=== PATIENT | male | born 1990 ===

== ENCOUNTER 2024-03-29 22:03 | Inpatient (IN) | payer MEDICAID, SELFPAY ==
--- OUTSIDE RECORDS SUMMARY | 2024-03-29 22:09 | XMS_ITS ---
Author Name CRISP Organization Unknown Results Test Name/Text Value Interpretation Date Range Source AMPHETAMINES Negative Normal [id number] - [facility] MARIJUANA Negative Normal [id number] - [facility] COCAINE Negative Normal [id number] - [facility] BARBITURATES Negative Normal 302387018045 - [facility] PCP Negative Normal 141642907430 - [facility] OPIATES Negative Normal 946077589943 - [facility] BENZODIAZEPINES Negative Normal [id number] - C [facility] SODIUM 137mmol/L Normal [id number] 136 - 145 [facility] GLUCOSE 92mg/dL Normal [id number] 74 - 106 [facility] BUN 10mg/dL Normal [id number] 9 - 23 [facility] CHLORIDE 105mmol/L Normal [id number] 98 - 107 [facility] POTASSIUM SERUM 4.3mmol/L Normal [id number] 3.5 - 5.1 [facility] CO2 28mmol/L Normal [id number] 20 - 31 [facility] CREATININE 1.02mg/dL Normal [id number] 0.7 - 1.3 [facility] MAGNESIUM 1.9mg/dL Normal [id number] 1.6 - 2.6 [facility] TROPONIN I HIGH SENSITIVE < 2.50 Below low normal [id number] 2.5 - 45 [facility] WBC 8.2K/uL Normal [id number] 3.7 - 10.3 [facility] ABSOLUTE GRANULOCYTES 3.8K/uL Normal [id number] 2.2 - 7.3 [facility] ABSOLUTE BASO 0.1K/uL Normal [id number] 0 - 0.2 [facility] RBC 5.5M/uL Normal [id number] 4.3 - 6 [facility] IMMATURE GRANULOCYTES 0% Normal [id number] 0 - 0.45 [facility] EOSINOPHILS 2% Normal [id number] 0 - 6 [facility] MPV 12fL Normal [id number] 8 - 12 [facility] ABSOLUTE MONOS 0.9K/uL Normal [id number] 0.2 - 1.5 CT [facility] BASOPHILS 1% Normal [id number] 0 - 2 [facility] NUCLEATED RBC 0% Normal [id number] 0 - 0.2 CTP R MCV 74fL Below low normal [id number] 83 - 102 [facility] MCH 24PG Below low normal [id number] 27 - 34 [facility] HCT 40.9% Normal [id number] 40 - 52 [facility] ABSOLUTE LYMPHS 3.2K/uL Normal [id number] 1.5 - 4.9 [facility] GRANULOCYTES 47% Normal [id number] 23 - 78 [facility] MONOCYTES 11% Normal [id number] 0 - 12 [facility] ABSOLUTE EOS 0.2K/uL Normal [id number] 0 - 0.7 [facility] LYMPHS 39% Normal [id number] 16 - 50 [facility] ABSOLUTE IMMATURE GRANULOCYTES 0K/uL Normal [id number] 0 - 0.3 [facility] HGB 13.3g/dL Below low normal [id number] 13.5 - 18 [facility] RDW 16.1% Above high normal [id number] 11.1 - 13.3 [facility] PLATELET COUNT 265K/uL Normal [id number] 150 - [address] [facility] MCHC 32.5g/dL Normal [id number] 31 - 36 [facility] ABSOLUTE NUCLEATED RBC 0K/uL Normal [id number] 0 - 0.012 [facility] PATIENT FASTING? UNKNOWN Normal [id number] [facility] CANNABINOID Negative Normal [id number] - [facility] OPIATES, URINE Negative Normal [id number] - [facility] COCAINE METABOLITES URINE Negative Normal [id number] - [facility] BENZODIAZEPINE, URINE Negative Normal [id number] - [facility] Hgb A1c MFr Bld HPLC 6.2% Above high normal [id number] 5 - 5.7 [facility] LDLc SerPl Calc-mCnc 120mg/dL Normal [id number] 50 - 1 30 [facility] TRIGL SERPL-MCNC 77mg/dL Normal [id number] - 150 [facility] CHOLEST SERPL-MCNC 177mg/dL Normal [id number] 0 - 200 [facility] HDLC SERPL-MCNC 42mg/dL Normal [id number] 32 - 70 [facility] Service [facility] XXX-Imp Dias ID NOW Normal [id number] [facility] SYMPTOMATIC DEF.BY CDC NO Normal [id number] [facility] Amphet Ur Ql Scn NEGATIVE Normal [id number] - [facility] Barbiturates Ur Ql Scn NEGATIVE Normal [id number] - [facility] Cannabinoids Ur Ql Scn NEGATIVE Normal [id number] - [facility] BZE Ur Ql Scn NEGATIVE Normal [id number] - CTT HS CREAT SERPL MCNC 1.1mg/dL Normal [id number] 0.7 - 1.3 [facility] CALCIUM SERPL MCNC 9.8mg/dL Normal [id number] 8.4 - 10.2 [facility] SODIUM SERPL SCNC 138mmol/L Normal [id number] 135 - 145 [facility] ANION GAP SERPL SCNC 9mmol/L Normal [id number] 5 - 14 [facility] Glomerular filtration rate/1.73 sq M. predicted 92 Normal [id number] 60 - [facility] HCO3 SER SCNC 26mmol/L Normal [id number] 24 - 32 [facility] GLUCOSE SERPL MCNC 91mg/dL Normal [id number] 70 - 199 [facility] BUN SERPL MCNC 9mg/dL Normal [id number] 9 - 20 CT [facility] CHLORIDE SERPL SCNC 103mmol/L Normal [id number] 98 - 10 7 [facility] POTASSIUM SERPL SCNC 4.1mmol/L Normal [id number] 3.5 - 5.1 [facility] Troponin I SerPl HS-mCnc 3ng/L Normal [id number] 0 - 20 [facility] PLATELET NO. BLD AUTO 277K/uL Normal [id number] 150 - 450 [facility] RBC NO. BLD AUTO 5.7M/uL Normal [id number] 4.7 - 6 [facility] NUCLEATED RBC 0% Normal [id number] 0 - 1 [facility] LYMPHOCYTES NO. BLD AUTO 2.4K/uL Normal [id number] 1 - 3.2 [facility] EOSINOPHIL NO. BLD AUTO 0.1K/uL Normal [id number] 0 - 0.5 [facility] MCH RBC QN AUTO 24.6pg Below low normal [id number] 25 - 33 [facility] MCHC RBC AUTO MCNC 33.5g/dL Normal [id number] 32 - 36 [facility] MONOCYTES NFR BLD AUTO 6.8% Normal [id number] 2 - 12 [facility] IMMATURE GRANULOCYTE, ABSOLUTE 0.04k/uL Normal [id number] - 0.1 [facility] LYMPHOCYTES NFR BLD AUTO 35.1% Normal [id number] 20 - 48 [facility] EOSINOPHIL NFR BLD AUTO 1.5% Normal [id number] 0 - 6 [facility] HGB BLD MCNC 14g/dL Normal [id number] 13.5 - 18 [facility] NEUTROPHIL[facility] NO. BLD AUTO 3.8K/uL Normal [id number] 1.8 - 7.8 [facility] WBC NO. BLD AUTO 6.8K/uL Normal [id number] 4 - 10.5 [facility] BASOPHILS NFR BLD AUTO 0.7% Normal [id number] 0 - 2 [facility] MONOCYTES NO. BLD AUTO 0.5K/uL Normal [id number] 0 - 0.8 [facility] MCV RBC AUTO 73.3fL Below low normal [id number] 78 - 10 0 [facility] NEUTROPHILS NFR BLD AUTO 55.3% Normal [id number] 44 - 74 [facility] IMMATURE GRANULOCYTE, PERCENT 0.6% Normal [id number] 0 - 1 [facility] BASOPHILS IN BLOOD BY AUTOMATED COUNT 0.1K/uL Normal [id number] 0 - 0.2 [facility] PMV BLD AUTO 10.7fL Normal [id number] 7.4 - 11.4 [facility] RDW RBC AUTO RTO 16.1% Normal [id number] 12.1 - 17.7 [facility] HCT VFR BLD AUTO 41.8% Normal [id number] 40 - 54 [facility] PT TIME PPP 11.6sec Normal [id number] 10.5 - 13.3 [facility] INR PPP 1 Normal [id number] 0.8 - 1.1 [facility] TROPONIN I 0.01ng/mL Normal [id number] - [facility] CREATININE 1mg/dL Normal 0.6 - 1.2 [facility] POTASSIUM 4.4mmol/L Normal [id number] 3.6 - 5.1 [facility] BICARBONATE 21mmol/L Below low normal [id number] 23 - 32 [facility] GLOMERULAR FILTRATION RATE ML/MIN/1.73 SQ M.PREDICTED 103mL/min/1.73m *2 Normal 60 - [facility] SODIUM 135mmol/L Below low normal [id number] 137 - 144 [facility] CHLORIDE 106mmol/L Normal [id number] 100 - 111 [facility] CALCIUM, TOTAL 10mg/dL Normal 8.4 - 10.2 [facility] UREA NITROGEN 9mg/dL Normal [id number] 8 - 24 [facility] ANION GAP 8mmol/L Normal [id number] 3 - 11 [facility] GLUCOSE 83mg/dL Normal [id number] 70 - 200 [facility] RBC DISTRIBUTION WIDTH 16.3% Above high normal [id number] 11.6 - 14.8 [facility] AUTO NRBC % 0% Normal [id number] 0 - 0 [facility] [address]. 3.810*3/uL Normal [id number] 1.4 - 6.[address] [facility] [address] 0.510*3/uL Normal [id number] 0.2 - 0.8 [facility] MCHC 32.2g/dL Normal [id number] 32 - 36 [facility] MCH 24pg Below low normal [id number] 26 - 34 [facility] IMMATURE GRANULOCYTE % 0.3% Normal [id number] 0 - 0.6 [facility] EOSINOPHIL % 1.2% Normal [id number] 0 - 6 [facility] [address] 0.110*3/uL Normal [id number] 0 - 0 .2 [facility] MCV 74.5fL Below low normal [id number] 80 - 100 [facility] PLATELET COUNT 48175*3/uL Normal [id number] 150 - 440 C [facility] BASOPHILS % 0.8% Normal [id number] 0 - 2 [facility] [address]. 2.110*3/uL Normal [id number] 0.7 - 4.[address] 0.110*3/uL Normal [id number] 0 - 0.3 [facility] HEMATOCRIT 45.1% Normal 40 - 52 [facility] WHITE CELL COUNT 6.510*3/uL Normal [id number] 3.8 - 10.6 [facility] RED CELL COUNT 6.0510*6/???L Above high normal [id number] 4.4 - 5.9 [facility] MONOCYTE % 7.3% Normal [id number] 4 - 12 [facility] NEUTROPHIL % 58.2% Normal [id number] 40 - 70 [facility] HEMOGLOBIN 14.5g/dL Normal 13 - 18 [facility] LYMPHOCYTE % 32.2% Normal [id number] 20 - 50 [facility] AMPHETAMINES NEG Normal [id number] - [facility] Normal [id number] - [facility] COCAINE NEG Normal [id number] - [facility] BARBITURATES NEG Normal [id number] - [facility] PCP NEG Normal [id number] - [facility] H OPIATES NEG Normal [id number] - [facility] H BENZODIAZEPINES NEG Normal 018339512519 - C [facility] AMPHETAMINES NEG Normal [id number] - [facility] MARIJUANA NEG Normal [id number] - [facility] H COCAINE NEG Normal [id number] - [facility] H BARBITURATES NEG Normal [id number] - [facility] Normal [id number] - [facility] H OPIATES NEG Normal [id number] - [facility] H BENZODIAZEPINES NEG Normal [id number] - C [facility] GLUCOSE 123mg/dL Normal [id number] [facility] AMPHETAMINES NEG Normal [id number] - [facility] MARIJUANA NEG Normal [id number] - [facility] COCAINE NEG Normal [id number] - [facility] BARBITURATES NEG Normal [id number] - [facility] PCP NEG Normal [id number] - [facility] OPIATES NEG Normal [id number] - [facility] BENZODIAZEPINES NEG Normal [id number] - C [facility] RPR NONREACTIVE Normal [id number] - [facility]H GLYCOHEMOGLOBIN (A1C) 6% Above high normal [id number] 4 - 5.6 [facility] GGT 53U/L Normal [id number] 15 - 85 [facility] TSH 2.49uIU/mL Normal [id number] 0.35 - 4.5 [facility] TRIGLYCERIDE 122mg/dL Normal [id number] - 150 [facility] LDL 127 Normal [id number] 0 - 129 [facility] CHOLESTEROL 191mg/dL Normal [id number] - 200 [facility] MMH HDL 40mg/dL Normal [id number] - [facility] H SODIUM 138mmol/L Normal [id number] 136 - 145 [facility] GLUCOSE 90mg/dL Normal [id number] 74 - 100 [facility] BUN 8mg/dL Normal [id number] 7 - 18 [facility] CALCIUM 9.3mg/dL Normal [id number] 8.5 - 10.1 [facility] CHLORIDE 104mmol/L Normal [id number] 98 - 107 [facility] POTASSIUM SERUM 4.3mmol/L Normal [id number] 3.5 - 5.1 C [facility] CO2 30mmol/L Normal [id number] 21 - 32 [facility] H CREATININE 0.94mg/dL Normal [id number] 0.55 - 1.3 [facility] AST (SGOT) 71U/L Above high normal [id number] 15 - 37 [facility] ALT (SGPT) 65U/L Normal [id number] 12 - 78 [facility] MH GFRE 99 Normal [id number] 60 - [facility] H WBC 6.1K/uL Normal [id number] 3.7 - 10.3 [facility] ABSOLUTE GRANULOCYTES 2.9K/uL Normal [id number] 2.2 - 7.3 [facility] ABSOLUTE BASO 0.1K/uL Normal [id number] 0 - 0.2 [facility] RBC 5.71M/uL Normal [id number] 4.3 - 6 [facility] H IMMATURE GRANULOCYTES 0% Normal [id number] 0 - 0.45 [facility] EOSINOPHILS 3% Normal [id number] 0 - 6 [facility] MMH MPV 11fL Normal [id number] 8 - 12 [facility] H ABSOLUTE MONOS 0.7K/uL Normal [id number] 0.2 - 1.5 CT [facility] BASOPHILS 1% Normal [id number] 0 - 2 [facility] H NUCLEATED RBC 0% Normal [id number] 0 - 0.2 [facility] MCV 76fL Below low normal 801043157601 83 - 102 [facility] MCH 25PG Below low normal [id number] 27 - 34 [facility] HCT 43.3% Normal [id number] 40 - 52 [facility] ABSOLUTE LYMPHS 2.4K/uL Normal [id number] 1.5 - 4.9 C [facility] GRANULOCYTES 47% Normal [id number] 23 - 78 [facility] MONOCYTES 11% Normal [id number] 0 - 12 [facility] H ABSOLUTE EOS 0.2K/uL Normal [id number] 0 - 0.7 [facility] LYMPHS 38% Normal [id number] 16 - 50 [facility] H ABSOLUTE IMMATURE GRANULOCYTES 0K/uL Normal [id number] 0 - 0.3 [facility] HGB 14g/dL Normal [id number] 13.5 - 18 [facility] H RDW 16% Above high normal [id number] 11.1 - 13.3 [facility] PLATELET COUNT 240K/uL Normal [id number] 150 - 480 [facility] MCHC 32.3g/dL Normal [id number] 31 - 36 [facility] H ABSOLUTE NUCLEATED RBC 0K/uL Normal [id number] 0 - 0.012 [facility] PATIENT FASTING? YES Normal [id number] [facility] INFLUENZA B BY PCR INFLUENZA B NEGATIVE. Normal [id number] [facility] INFLUENZA A BY PCR INFLUENZA A NEGATIVE. Normal 802656429390 [facility] AMPHETAMINES NEG Normal [id number] - [facility] MARIJUANA NEG Normal [id number] - [facility] H COCAINE NEG Normal [id number] - [facility] H BARBITURATES NEG Normal [id number] - [facility] PCP NEG Normal [id number] - [facility] H OPIATES NEG Normal 608295993604 - [facility] H BENZODIAZEPINES NEG Normal 937902032813 - C [facility] TROPONIN I HIGH SENSITIVE < 3.00 Normal 0 - 78 [facility] AMPHETAMINES NEG Normal [id number] - [facility] MARIJUANA NEG Normal [id number] - [facility] H COCAINE NEG Normal 872907278815 - [facility] H BARBITURATES NEG Normal [id number] - [facility] PCP NEG Normal [id number] - [facility] H OPIATES NEG Normal [id number] - [facility] H BENZODIAZEPINES NEG Normal 013313380145 - C [facility] MAGNESIUM 2.3mg/dL Normal 1.8 - 2.4 [facility] CALCIUM 9.7mg/dL Normal 8.5 - 10.1 [facility] ALBUMIN 3.7g/dL Normal 3.4 - 5 [facility] SODIUM 140mmol/L Normal 136 - 145 [facility] H GLUCOSE 97mg/dL Normal 74 - 100 [facility] BUN 10mg/dL Normal 7 - 18 [facility] BILIRUBIN,TOTAL 0.3mg/dL Normal 0.2 - 1 C [facility] CHLORIDE 109mmol/L Above high normal 98 - 107 [facility] POTASSIUM SERUM 4mmol/L Normal 3.5 - 5.1 [facility] CO2 30mmol/L Normal 21 - 32 [facility] ALKALINE PHOSPHATASE 74U/L Normal 50 - 1 36 [facility] AST (SGOT) 29U/L Normal 15 - 37 [facility] GLOBULIN 3.5g/dL Normal 2.4 - 4.2 [facility] H A/G RATIO 1.1g/dL Normal CT[facility]G H ALT (SGPT) 55U/L Normal 12 - 78 [facility] GH BUN/CREAT.RATIO 10.5 Normal C [facility] CREATININE 0.95mg/dL Normal 0.55 - 1.3 [facility] PROTEIN, TOTAL 7.2g/dL Normal 6.4 - 8.2 CT [facility] GFRE 98 Normal 60 - [facility] H TROPONIN I HIGH SENSITIVE 4.15ng/L Normal 0 - 78 [facility] WBC 6.3K/uL Normal 3.7 - 10.3 [facility] ABSOLUTE GRANULOCYTES 2.9K/uL Normal 2.2 - 7.3 [facility] ABSOLUTE BASO 0.1K/uL Normal 0 - 0.2 [facility] RBC 5.55M/uL Normal 4.3 - 6 [facility] H IMMATURE GRANULOCYTES 0% Normal 0 - 0.45 [facility] EOSINOPHILS 4% Normal 0 - 6 [facility]GH MPV 11fL Normal 8 - 12 [facility] H ABSOLUTE MONOS 0.5K/uL Normal 0.2 - 1.5 CT [facility] BASOPHILS 1% Normal 0 - 2 [facility] H NUCLEATED RBC 0% Normal 0 - 0.2 [facility] MCV 75fL Below low normal 83 - 102 [facility] MCH 24PG Below low normal 27 - 34 [facility] HCT 41.7% Normal 40 - 52 [facility] H ABSOLUTE LYMPHS 2.5K/uL Normal 1.5 - 4.9 C [facility] GRANULOCYTES 47% Normal 23 - 78 [facility] MONOCYTES 8% Normal 0 - 12 [facility] H ABSOLUTE EOS 0.2K/uL Normal 0 - 0.7 [facility] LYMPHS 40% Normal 16 - 50 [facility] H ABSOLUTE IMMATURE GRANULOCYTES 0K/uL Normal 0 - 0.3 [facility] HGB 13.3g/dL Below low normal 13.5 - 18 [facility] RDW 16% Above high normal 11.1 - 13.3 [facility] PLATELET COUNT 268K/uL Normal 150 - [address] CT [facility] MCHC 31.9g/dL Normal [id number] 31 - 36 [facility] H ABSOLUTE NUCLEATED RBC 0K/uL Normal [id number] 0 - 0.012 [facility] PATIENT FASTING? UNKNOWN Normal [id number] [facility] AMPHETAMINES NEG Normal [id number] - [facility] MARIJUANA NEG Normal [id number] - [facility] H COCAINE NEG Normal [id number] - [facility] H BARBITURATES NEG Normal [id number] - [facility] PCP NEG Normal [id number] - [facility] H OPIATES NEG Normal [id number] - [facility] H BENZODIAZEPINES NEG Normal 962308622795 - C [facility] AMPHETAMINES NEG Normal 905161252778 - [facility] MARIJUANA NEG Normal [id number] - [facility] H COCAINE NEG Normal [id number] - [facility] H BARBITURATES NEG Normal [id number] - [facility] Normal [id number] - [facility] H OPIATES NEG Normal [id number] - [facility] H BENZODIAZEPINES NEG Normal 372480281613 - [facility] AMPHETAMINES NEG Normal 871122276525 - [facility] MARIJUANA NEG Normal [id number] - [facility] H COCAINE NEG Normal 813806347186 - [facility] H BARBITURATES NEG Normal [id number] - [facility] PCP NEG Normal [id number] - [facility] H OPIATES NEG Normal [id number] - [facility] H BENZODIAZEPINES NEG Normal 374066945526 - C [facility] AMPHETAMINES NEG Normal 047598301286 - [facility] MARIJUANA NEG Normal 248284283351 - [facility] H COCAINE NEG Normal 585313272305 - [facility] H BARBITURATES NEG Normal 397481467714 - [facility] PCP NEG Normal [id number] - [facility] H OPIATES NEG Normal [id number] - [facility] H BENZODIAZEPINES NEG Normal 268193476583 - C [facility] RPR NONREACTIVE Normal 706408756135 - [facility] GLYCOHEMOGLOBIN (A1C) 5.9% Above high normal [id number] 4 - 5.6 [facility] ALT (SGPT) 46U/L Normal [id number] 12 - 78 [facility] MH TRIGLYCERIDE 67mg/dL Normal 981672948405 - 150 [facility] LDL 108 Normal 406440907811 0 - 129 [facility] H CHOLESTEROL 159mg/dL Normal 447498060551 - 200 [facility] MMH HDL 38mg/dL Below low normal 064351159844 - [facility] GFRE 94 Normal [id number] 60 - [facility] H AST (SGOT) 26U/L Normal [id number] 15 - 37 [facility] MH TSH 1.99uIU/mL Normal [id number] 0.35 - 4.5 [facility] SODIUM 140mmol/L Normal [id number] 136 - 145 [facility] H GLUCOSE 85mg/dL Normal [id number] 74 - 100 [facility] H BUN 11mg/dL Normal [id number] 7 - 18 [facility] H CALCIUM 9mg/dL Normal 660312431101 8.5 - 10.1 [facility] CHLORIDE 110mmol/L Above high normal 018641625760 98 - 107 [facility] POTASSIUM SERUM 4.4mmol/L Normal [id number] 3.5 - 5.1 C [facility] CO2 26mmol/L Normal [id number] 21 - 32 [facility] H CREATININE 0.99mg/dL Normal [id number] 0.55 - 1.3 [facility] GGT 53U/L Normal [id number] 15 - 85 [facility] H WBC 7.2K/uL Normal [id number] 3.7 - 10.3 [facility] ABSOLUTE GRANULOCYTES 3.5K/uL Normal [id number] 2.2 - 7.3 [facility] ABSOLUTE BASO 0.1K/uL Normal [id number] 0 - 0.2 [facility] RBC 5.83M/uL Normal [id number] 4.3 - 6 [facility] H IMMATURE GRANULOCYTES 0% Normal 873111952231 0 - 0.45 [facility] EOSINOPHILS 2% Normal [id number] 0 - 6 [facility] MMH MPV 11fL Normal 969836203288 8 - 12 [facility] H ABSOLUTE MONOS 0.5K/uL Normal [id number] 0.2 - 1.5 CT [facility] BASOPHILS 1% Normal [id number] 0 - 2 [facility] H NUCLEATED RBC 0% Normal [id number] 0 - 0.2 [facility]P [facility] MCV 78fL Below low normal 083113486844 83 - 102 [facility] MCH 24PG Below low normal 446337670204 27 - 34 [facility] HCT 45.2% Normal [id number] 40 - 52 [facility] H ABSOLUTE LYMPHS 3K/uL Normal [id number] 1.5 - 4.9 C [facility] GRANULOCYTES 49% Normal 689958948577 23 - 78 [facility] MONOCYTES 7% Normal [id number] 0 - 12 [facility] H ABSOLUTE EOS 0.2K/uL Normal [id number] 0 - 0.7 [facility] LYMPHS 42% Normal [id number] 16 - 50 [facility] H ABSOLUTE IMMATURE GRANULOCYTES 0K/uL Normal [id number] 0 - 0.3 [facility] HGB 14.1g/dL Normal 769064441129 13.5 - 18 [facility] H RDW 16% Above high normal [id number] 11.1 - 13.3 [facility] PLATELET COUNT 285K/uL Normal [id number] 150 - [address] CT [facility] MCHC 31.2g/dL Normal 538396186178 31 - 36 [facility] H ABSOLUTE NUCLEATED RBC 0K/uL Normal 549529789458 0 - 0.012 [facility] PATIENT FASTING? YES Normal [id number] [facility] TSH 3.01uIU/mL Normal 698068037815 0.35 - 4.5 [facility] BILIRUBIN,TOTAL 0.2mg/dL Normal 575364043188 0.2 - 1 C [facility] ALKALINE PHOSPHATASE 83U/L Normal [id number] 50 - 1 36 [facility] AST (SGOT) 34U/L Normal [id number] 15 - 37 [facility] GH GLOBULIN 4.2g/dL Normal [id number] 2.4 - 4.2 [facility] H A/G RATIO 0.8g/dL Normal [id number] [facility] H ALT (SGPT) 59U/L Normal [id number] 12 - 78 [facility] GH PROTEIN, TOTAL 7.7g/dL Normal 445498572700 6.4 - 8.2 CT [facility] LIPASE 85U/L Above high normal [id number] 13 - 75 [facility] WBC 7.6K/uL Normal 693221942403 3.7 - 10.3 [facility] ABSOLUTE GRANULOCYTES 4K/uL Normal [id number] 2.2 - 7.3 [facility] ABSOLUTE BASO 0.1K/uL Normal 977248607741 0 - 0.2 [facility] RBC 5.28M/uL Normal 378324358052 4.3 - 6 [facility] H IMMATURE GRANULOCYTES 0% Normal [id number] 0 - 0.45 [facility]PR EOSINOPHILS 2% Normal [id number] 0 - 6 [facility] MPV 11fL Normal 331458300322 8 - 12 [facility] H ABSOLUTE MONOS 0.6K/uL Normal 608283578123 0.2 - 1.5 CT [facility] BASOPHILS 1% Normal [id number] 0 - 2 [facility] H NUCLEATED RBC 0% Normal [id number] 0 - 0.2 [facility] MCV 76fL Below low normal [id number] 83 - 102 [facility] MCH 25PG Below low normal [id number] 27 - 34 [facility] HCT 40% Normal [id number] 40 - 52 [facility] ABSOLUTE LYMPHS 2.7K/uL Normal [id number] 1.5 - 4.9 C [facility] GRANULOCYTES 53% Normal [id number] 23 - 78 [facility] MONOCYTES 7% Normal [id number] 0 - 12 [facility] ABSOLUTE EOS 0.2K/uL Normal [id number] 0 - 0.7 [facility] LYMPHS 36% Normal [id number] 16 - 50 [facility] ABSOLUTE IMMATURE GRANULOCYTES 0K/uL Normal [id number] 0 - 0.3 [facility]PR HGB 13.1g/dL Below low normal [id number] 13.5 - 18 CTPM[facility] RDW 15.9% Above high normal [id number] 11.1 - 13.3 [facility] PLATELET COUNT 260K/uL Normal [id number] 150 - [address] [facility] MCHC 32.8g/dL Normal [id number] 31 - 36 [facility] H ABSOLUTE NUCLEATED RBC 0K/uL Normal [id number] 0 - 0.012 [facility]PR MAGNESIUM 2mg/dL Normal [id number] 1.8 - 2.4 [facility] TROPONIN I HIGH SENSITIVE 3.23ng/L Normal [id number] 0 - 78 [facility] GFRE 90 Normal [id number] 60 - [facility] H ALBUMIN 3.5g/dL Normal [id number] 3.4 - 5 [facility] SODIUM 140mmol/L Normal [id number] 136 - 145 [facility] H GLUCOSE 101mg/dL Above high normal [id number] 74 - 100 [facility] BUN 11mg/dL Normal [id number] 7 - 18 [facility] H CHLORIDE 109mmol/L Above high normal [id number] 98 - 107 [facility] POTASSIUM SERUM 3.8mmol/L Normal [id number] 3.5 - 5.1 C [facility] CO2 27mmol/L Normal [id number] 21 - 32 [facility] BUN/CREAT.RATIO 10.7 Normal [id number] C [facility] CREATININE 1.03mg/dL Normal [id number] 0.55 - 1.3 [facility] PATIENT FASTING? UNKNOWN Normal [id number] [facility] AMPHETAMINES NEG Normal [id number] - [facility] HR MARIJUANA NEG Normal [id number] - [facility] COCAINE NEG Normal [id number] - [facility] BARBITURATES NEG Normal [id number] - [facility] HR PCP NEG Normal [id number] - [facility] OPIATES NEG Normal [id number] - [facility] BENZODIAZEPINES NEG Normal [id number] - [facility] Opiates Ur Ql Scn>300 ng/mL Normal - [facility] fentaNYL+Norfentanyl Ur Ql Scn Normal - [facility] Benzodiaz Ur Ql Scn>200 ng/mL Normal [id number] - [facility] Amphetamines Ur Ql Normal [id number] - [facility] BZE Ur Ql Normal - [facility] PCP Ur Ql Scn>25 ng/mL Normal - [facility] Cannabinoids Ur Ql Scn>50 ng/mL Normal - [facility] Ethanol SerPl-mCnc 11mg/dL Normal [id number] - 11 [facility] AST SerPl-cCnc 34U/L Normal [id number] 10 - 55 HH CCT ALT SerPl-cCnc 34U/L Normal [id number] 10 - 55 HH CCT Creat SerPl-mCnc 1mg/dL Normal [id number] 0.5 - 1.3 [facility] Globulin Ser Calc-mCnc 3.7g/dL Normal [id number] 1.5 - 3.9 [facility] CO2 SerPl-sCnc 24mmol/L Normal [id number] 22 - 33 [facility] CCT Albumin/Glob SerPl 1.1Ratio Normal [id number] 1 - 3 [facility] Anion Gap Bld-sCnc 11 Normal [id number] 7 - 17 [facility] Potassium SerPl-sCnc 4.4mmol/L Normal [id number] 3.4 - 5.3 [facility] Bilirub SerPl-mCnc 0.2mg/dL Normal [id number] 0.2 - 1 [facility] Calcium SerPl-mCnc 9.9mg/dL Normal [id number] 8.7 - 10.5 [facility] BUN SerPl-mCnc 9mg/dL Normal [id number] 8 - 21 HH CCT ALP SerPl-cCnc 82U/L Normal [id number] 45 - 128 HH CCT GFR/BSA.pred SerPlBld YJB-QFV-IhEAov 90 Normal [id number] 59 - [facility] Chloride SerPl-sCnc 102mmol/L Normal [id number] 98 - 10 7 [facility] BUN/Creat SerPl 9Ratio Below low normal [id number] 10 - 25 [facility] Albumin SerPl-mCnc 4g/dL Normal [id number] 3.5 - 5 [facility] Prot SerPl-mCnc 7.7g/dL Normal [id number] 6.3 - 8.3 H [facility] Glucose SerPl-mCnc 96mg/dL Normal [id number] 65 - 99 [facility] Sodium SerPl-sCnc 137mmol/L Normal [id number] 136 - 145 [facility] Magnesium SerPl-mCnc 2.1mg/dL Normal [id number] 1.6 - 2.7 [facility] Neutrophils num Bld Auto 4.48Thou/uL Normal [id number] 2 - 7.5 [facility] Monocytes num Bld Auto 0.5Thou/uL Normal [id number] 0.2 - 1.5 [facility] Eosinophil num Bld Auto 0.08Thou/uL Normal [id number] 0 - 0.7 [facility] WBC num Bld Auto 7.6Thou/uL Normal [id number] 4 - 11 [facility] M[facility] RBC Auto-mCnc 32.5g/dL Normal [id number] 30 - 36 [facility] Monocytes/leuk NFr Bld Auto 6.6% Normal [id number] [facility] Hct VFr Bld Auto 42.1% Normal [id number] 39 - 54 [facility] RBC num Bld Auto 5.59Mil/uL Normal [id number] 4.5 - 6.2 [facility] RDW RBC Auto-Rto 15.6% Above high normal [id number] 11.5 - 14.5 [facility] PMV Bld Auto 10.4fL Normal [id number] 7.5 - 12.5 [facility] Eosinophil/leuk NFr Bld Auto 1.1% Normal [id number] [facility] MCH RBC Qn Auto 24.5pg Below low normal [id number] 26 - 34 [facility] Basophils/leuk NFr Bld Auto 0.4% Normal [id number] [facility] Basophils num Bld Auto 0.03Thou/uL Normal [id number] 0 - 0.2 [facility] Platelet num Bld Auto 265Thou/uL Normal [id number] 150 - 450 [facility] Neutrophils/leuk NFr Bld Auto 59% Normal [id number] [facility] MCV RBC Auto 75fL Below low normal [id number] 80 - 10 0 [facility] Lymphocytes/leuk NFr Bld Auto 32.8% Normal [id number] [facility] Lymphocytes num Bld Auto 2.49Thou/uL Normal [id number] 1.5 - 4.5 [facility] Imm Granulocytes/leuk NFr Bld Auto 0.1% Normal [id number] [facility] Hgb Bld-mCnc 13.7g/dL Normal [id number] 13 - 17.7 [facility] T Imm Granulocytes num Bld Auto 0.01Thou/uL Normal [id number] 0 - 0.1 [facility] TROPONIN I HIGH SENSITIVE 3.66ng/L Normal [id number] 0 - 78 [facility] BILIRUBIN,TOTAL 0.2mg/dL Normal [id number] 0.2 - 1 C [facility] ALKALINE PHOSPHATASE 84U/L Normal [id number] 50 - 1 36 [facility] AST (SGOT) 24U/L Normal [id number] 15 - 37 [facility] GLOBULIN 4g/dL Normal [id number] 2.4 - 4.2 [facility] H A/G RATIO 0.9g/dL Normal [id number] [facility] ALT (SGPT) 39U/L Normal [id number] 12 - 78 [facility] PROTEIN, TOTAL 7.7g/dL Normal [id number] 6.4 - 8.2 [facility] TROPONIN I HIGH SENSITIVE < 3.00 Normal [id number] 0 - 78 [facility] GFRE 92 Normal [id number] 60 - [facility] ALBUMIN 3.7g/dL Normal [id number] 3.4 - 5 [facility] SODIUM 138mmol/L Normal [id number] 136 - 145 [facility] GLUCOSE 95mg/dL Normal [id number] 74 - 100 [facility] BUN 8mg/dL Normal [id number] 7 - 18 [facility] CHLORIDE 107mmol/L Normal [id number] 98 - 107 [facility] POTASSIUM SERUM 4mmol/L Normal [id number] 3.5 - 5.1 [facility] CO2 26mmol/L Normal [id number] 21 - 32 [facility] BUN/CREAT.RATIO 7.9 Normal 299025080159 [facility] CREATININE 1.01mg/dL Normal [id number] 0.55 - 1.3 [facility] WBC 8.8K/uL Normal [id number] 3.7 - 10.3 [facility] ABSOLUTE GRANULOCYTES 4.3K/uL Normal [id number] 2.2 - 7.3 [facility] ABSOLUTE BASO 0.1K/uL Normal [id number] 0 - 0.2 [facility] RBC 5.47M/uL Normal [id number] 4.3 - 6 [facility] IMMATURE GRANULOCYTES 0% Normal [id number] 0 - 0.45 [facility] EOSINOPHILS 2% Normal [id number] 0 - 6 [facility] MPV 11fL Normal [id number] 8 - 12 [facility] ABSOLUTE MONOS 0.8K/uL Normal [id number] 0.2 - 1.5 [facility] BASOPHILS 1% Normal [id number] 0 - 2 [facility] H NUCLEATED RBC 0% Normal [id number] 0 - 0.2 [facility] MCV 75fL Below low normal [id number] 83 - 102 [facility] MCH 25PG Below low normal [id number] 27 - 34 [facility] HCT 41.2% Normal [id number] 40 - 52 [facility] ABSOLUTE LYMPHS 3.5K/uL Normal [id number] 1.5 - 4.9 C [facility] GRANULOCYTES 48% Normal [id number] 23 - 78 [facility] MONOCYTES 9% Normal [id number] 0 - 12 [facility] ABSOLUTE EOS 0.2K/uL Normal [id number] 0 - 0.7 [facility] LYMPHS 40% Normal [id number] 16 - 50 [facility] ABSOLUTE IMMATURE GRANULOCYTES 0K/uL Normal [id number] 0 - 0.3 [facility] HGB 13.6g/dL Normal [id number] 13.5 - 18 [facility] RDW 15.7% Above high normal [id number] 11.1 - 13.3 [facility] PLATELET COUNT 274K/uL Normal [id number] 150 - 480 [facility] MCHC 33g/dL Normal [id number] 31 - 36 [facility] ABSOLUTE NUCLEATED RBC 0K/uL Normal [id number] 0 - 0.012 [facility] PATIENT FASTING? UNKNOWN Normal [id number] [facility] TROPONIN T < 6 Normal [id number] - [facility] BLOOD UREA NITROGEN 10MG/DL Normal [id number] 6 - 20 [facility] EST. GLOMERULAR FILTRATION > 60 Normal [id number] [facility] EST CREATININE CLEARANCE CALC 172.9mL/min Normal [id number] [facility] POTASSIUM 4.1MMOL/L Normal [id number] 3.5 - 4.9 [facility] GLUCOSE, RANDOM 87MG/DL Normal [id number] 70 - 139 [facility] BUN/CREATININE RATIO 10 Normal [id number] [facility] CALCIUM 9.5MG/DL Normal [id number] 8.6 - 10.4 [facility] CO2 25MMOL/L Normal [id number] 22 - 29 [facility] CHLORIDE 101MMOL/L Normal [id number] 98 - 107 [facility] CREATININE 1MG/DL Normal [id number] 0.7 - 1.2 [facility] SODIUM 137MMOL/L Normal [id number] 136 - 145 [facility] ANION GAP 15MMOL/L Normal [id number] - [facility] HEMOGLOBIN 13.7GM/DL Normal [id number] 13.5 - 18 [facility] RDW 16% Above high normal [id number] 11.5 - 14.5 [facility] RBC 5.54M/UL Normal [id number] 4.7 - 6 [facility] ABSOLUTE LYMPHS 1.9K/UL Normal [id number] 1 - 4.8 [facility] HEMATOCRIT 42.1% Normal [id number] 40 - 54 [facility] MCH 24.7PG Below low normal [id number] 27 - 31 [facility] MEAN PLATELET VOLUME 11fL Normal [id number] 8. 8 - 13.6 [facility] MCV 76FL Below low normal [id number] 78 - 100 [facility] BASOPHILS 0.8% Normal [id number] [facility] EOSINOPHILS 1.5% Normal [id number] [facility] LYMPHOCYTES 29.9% Normal [id number] [facility] ABSOLUTE MONOS 0.5K/UL Normal [id number] 0 - 0.8 [facility] ABSOLUTE NEUTROPHILS 3.9K/UL Normal [id number] 1.8 - 7.8 [facility] IMMATURE GRANULOCYTE PERCENT 0.3% Normal [id number] 0 - 0.8 [facility] ABSOLUTE EOS 0.1K/UL Normal [id number] 0 - 0.5 [facility] MONOCYTES 8.2% Normal [id number] [facility] WBC 6.5K/UL Normal [id number] 4 - 10.5 [facility] PLATELET COUNT 264K/UL Normal [id number] 150 - 450 [facility] MCHC 32.5GM/DL Normal [id number] 32 - 36 [facility] NEUTROPHILS 59.3% Normal [id number] [facility] ABSOLUTE BASOS 0.1K/UL Normal [id number] 0 - 0.2 [facility] ABSOLUTE IMMATURE GRANULOCYTE 0.02K/UL Normal [id number] 0 - 0.08 [facility] ALCOHOL (BLOOD) < 3 Normal [id number] 0 - 10 [facility] TROPONIN I HIGH SENSITIVE < 3.00 Normal [id number] 0 - 78 [facility] GFRE 94 Normal [id number] 60 - [facility] LIPASE 50U/L Normal [id number] 13 - 75 [facility] ALBUMIN 3.7g/dL Normal [id number] 3.4 - 5 [facility] SODIUM 138mmol/L Normal [id number] 136 - 145 [facility] GLUCOSE 91mg/dL Normal [id number] 74 - 100 [facility] BUN 9mg/dL Normal [id number] 7 - 18 [facility] BILIRUBIN,TOTAL 0.3mg/dL Normal [id number] 0.2 - 1 [facility] CHLORIDE 106mmol/L Normal [id number] 98 - 107 [facility] POTASSIUM SERUM 4.1mmol/L Normal [id number] 3.5 - 5.1 [facility] CO2 28mmol/L Normal [id number] 21 - 32 [facility] ALKALINE PHOSPHATASE 78U/L Normal [id number] 50 - 1 36 [facility] AST (SGOT) 49U/L Above high normal [id number] 15 - 37 [facility] GLOBULIN 4g/dL Normal [id number] 2.4 - 4.2 [facility] A/G RATIO 0.9g/dL Normal [id number] [facility] ALT (SGPT) 52U/L Normal [id number] 12 - 78 [facility] BUN/CREAT.RATIO 9.1 Normal [id number] C [facility] CREATININE 0.99mg/dL Normal [id number] 0.55 - 1.3 [facility] PROTEIN, TOTAL 7.7g/dL Normal [id number] 6.4 - 8.2 [facility] WBC 6.8K/uL Normal [id number] 3.7 - 10.3 [facility] ABSOLUTE GRANULOCYTES 3.9K/uL Normal [id number] 2.2 - 7.3 [facility] ABSOLUTE BASO 0.1K/uL Normal [id number] 0 - 0.2 [facility] RBC 5.45M/uL Normal [id number] 4.3 - 6 [facility] H IMMATURE GRANULOCYTES 0% Normal [id number] 0 - 0.45 [facility] EOSINOPHILS 2% Normal [id number] 0 - 6 [facility] MPV 12fL Normal [id number] 8 - 12 [facility] ABSOLUTE MONOS 0.6K/uL Normal [id number] 0.2 - 1.5 [facility] BASOPHILS 1% Normal [id number] 0 - 2 [facility] NUCLEATED RBC 0% Normal [id number] 0 - 0.2 [facility] MCV 76fL Below low normal [id number] 83 - 102 [facility] MCH 25PG Below low normal [id number] 27 - 34 [facility] HCT 41.3% Normal [id number] 40 - 52 [facility] ABSOLUTE LYMPHS 2.1K/uL Normal [id number] 1.5 - 4.9 C [facility] GRANULOCYTES 57% Normal [id number] 23 - 78 [facility] MONOCYTES 9% Normal [id number] 0 - 12 [facility] ABSOLUTE EOS 0.2K/uL Normal [id number] 0 - 0.7 [facility] LYMPHS 31% Normal [id number] 16 - 50 [facility] ABSOLUTE IMMATURE GRANULOCYTES 0K/uL Normal [id number] 0 - 0.3 [facility] HGB 13.5g/dL Normal [id number] 13.5 - 18 [facility] RDW 16.2% Above high normal [id number] 11.1 - 13.3 [facility] PLATELET COUNT 241K/uL Normal [id number] 150 - 480 [facility] MCHC 32.7g/dL Normal [id number] 31 - 36 [facility] ABSOLUTE NUCLEATED RBC 0K/uL Normal [id number] 0 - 0.012 [facility] PATIENT FASTING? UNKNOWN Normal [id number] [facility] GFRE 83 Normal [id number] 60 - [facility] H LYMPHS 30% Normal [id number] 16 - 50 [facility] H EOSINOPHILS 4% Normal [id number] 0 - 6 [facility] MMH SEGS 57% Normal [id number] 23 - 78 [facility] H MICROCYTOSIS 3+ Critically abnormal [id number] [facility] RC MORPHOLOGY NORMAL Normal [id number] [facility] MONOS 8% Normal [id number] 0 - 12 [facility] H BASOPHILS 1% Normal [id number] 0 - 2 [facility] H TROPONIN I HIGH SENSITIVE 3.1ng/L Normal [id number] 0 - 78 [facility] SODIUM 139mmol/L Normal [id number] 136 - 145 [facility] H GLUCOSE 110mg/dL Above high normal [id number] 74 - 100 [facility] BUN 12mg/dL Normal [id number] 7 - 18 [facility] H CHLORIDE 107mmol/L Normal [id number] 98 - 107 [facility] H POTASSIUM SERUM 3.8mmol/L Normal [id number] 3.5 - 5.1 C [facility] CO2 25mmol/L Normal [id number] 21 - 32 [facility] H CREATININE 1.1mg/dL Normal [id number] 0.55 - 1.3 [facility] WBC 6.8K/uL Normal [id number] 3.7 - 10.3 [facility] ABSOLUTE GRANULOCYTES 3.7K/uL Normal [id number] 2.2 - 7.3 [facility] ABSOLUTE BASO 0.1K/uL Normal [id number] 0 - 0.2 [facility] RBC 5.4M/uL Normal [id number] 4.3 - 6 [facility] H MPV 11fL Normal [id number] 8 - 12 [facility] ABSOLUTE MONOS 0.7K/uL Normal [id number] 0.2 - 1.5 CT [facility] NUCLEATED RBC 0% Normal [id number] 0 - 0.2 [facility] MCV 76fL Below low normal [id number] 83 - 102 [facility] MCH 25PG Below low normal [id number] 27 - 34 [facility] HCT 40.9% Normal [id number] 40 - 52 [facility] H ABSOLUTE LYMPHS 2.2K/uL Normal [id number] 1.5 - 4.9 [facility] ABSOLUTE EOS 0.2K/uL Normal [id number] 0 - 0.7 [facility] ABSOLUTE IMMATURE GRANULOCYTES 0K/uL Normal [id number] 0 - 0.3 [facility] HGB 13.3g/dL Below low normal [id number] 13.5 - 18 [facility] RDW 15.9% Above high normal [id number] 11.1 - 13.3 [facility] PLATELET COUNT 246K/uL Normal [id number] 150 - [address] [facility] MCHC 32.5g/dL Normal [id number] 31 - 36 [facility] H ABSOLUTE NUCLEATED RBC 0K/uL Normal [id number] 0 - 0.012 [facility]FF [facility] * Normal [id number] [facility] PATIENT FASTING? UNKNOWN Normal [id number] [facility] AMPHETAMINES NEG Normal [id number] - [facility] MARIJUANA NEG Normal [id number] - [facility] H COCAINE NEG Normal [id number] - [facility] H BARBITURATES NEG Normal [id number] - [facility] PCP NEG Normal [id number] - [facility] H OPIATES NEG Normal [id number] - [facility] H BENZODIAZEPINES NEG Normal [id number] - C [facility] GFRE 89 Normal [id number] 60 - [facility] H PRO B-TYPE NATRIURETIC PEPTIDE 8pg/mL Normal [id number] 0 - 450 [facility] ALCOHOL (BLOOD) < 3 Normal [id number] 0 - 10 [facility] ALBUMIN 3.7g/dL Normal [id number] 3.4 - 5 [facility] H SODIUM 138mmol/L Normal [id number] 136 - 145 [facility] H GLUCOSE 89mg/dL Normal [id number] 74 - 100 [facility] H BUN 12mg/dL Normal [id number] 7 - 18 [facility] H BILIRUBIN,TOTAL 0.4mg/dL Normal [id number] 0.2 - 1 [facility] CHLORIDE 105mmol/L Normal [id number] 98 - 107 [facility] H POTASSIUM SERUM 4.7mmol/L Normal [id number] 3.5 - 5.1 C [facility] CO2 26mmol/L Normal [id number] 21 - 32 [facility] H ALKALINE PHOSPHATASE 77U/L Normal [id number] 50 - 1 36 [facility] AST (SGOT) 45U/L Above high normal [id number] 15 - 37 [facility] GLOBULIN 4.5g/dL Above high normal [id number] 2.4 - 4.2 [facility] A/G RATIO 0.8g/dL Normal [id number] [facility] H ALT (SGPT) 41U/L Normal [id number] 12 - 78 [facility] MH BUN/CREAT.RATIO 11.5 Normal 785481268876 [facility] CREATININE 1.04mg/dL Normal [id number] 0.55 - 1.3 [facility] PROTEIN, TOTAL 8.2g/dL Normal [id number] 6.4 - 8.2 CT [facility] TROPONIN I HIGH SENSITIVE < 3.00 Normal [id number] 0 - 78 [facility] WBC 7.8K/uL Normal [id number] 3.7 - 10.3 [facility] ABSOLUTE GRANULOCYTES 4K/uL Normal [id number] 2.2 - 7.3 [facility] ABSOLUTE BASO 0.1K/uL Normal [id number] 0 - 0.2 [facility] RBC 5.66M/uL Normal [id number] 4.3 - 6 [facility] H IMMATURE GRANULOCYTES 0% Normal [id number] 0 - 0.45 [facility] EOSINOPHILS 3% Normal [id number] 0 - 6 [facility] MMH MPV 11fL Normal [id number] 8 - 12 [facility] H ABSOLUTE MONOS 0.7K/uL Normal [id number] 0.2 - 1.5 CT [facility] BASOPHILS 1% Normal [id number] 0 - 2 [facility] H NUCLEATED RBC 0% Normal [id number] 0 - 0.2 [facility] MCV 76fL Below low normal 780454315632 83 - 102 [facility] MCH 25PG Below low normal [id number] 27 - 34 [facility] HCT 42.9% Normal [id number] 40 - 52 [facility] H ABSOLUTE LYMPHS 2.8K/uL Normal [id number] 1.5 - 4.9 [facility] GRANULOCYTES 52% Normal 23 - 78 [facility] MONOCYTES 9% Normal 0 - 12 [facility] H ABSOLUTE EOS 0.2K/uL Normal [id number] 0 - 0.7 [facility] LYMPHS 36% Normal 16 - 50 [facility] H ABSOLUTE IMMATURE GRANULOCYTES 0K/uL Normal 0 - 0.3 [facility] HGB 13.9g/dL Normal 13.5 - 18 [facility] H RDW 15.9% Above high normal 11.1 - 13.3 [facility] PLATELET COUNT 259K/uL Normal [id number] 150 - [address] [facility] MCHC 32.4g/dL Normal 31 - 36 [facility] H ABSOLUTE NUCLEATED RBC 0K/uL Normal [id number] 0 - 0.012 [facility] PAT[facility] FASTING? UNKNOWN Normal [id number] [facility] GLYCOHEMOGLOBIN (A1C) 6.1% Above high normal 556245019450 4 - 5.6 [facility] TRIGLYCERIDE 66mg/dL Normal [id number] - 150 [facility] LDL 124 Normal 0 - 129 [facility] H CHOLESTEROL 178mg/dL Normal [id number] - 200 [facility] HDL 41mg/dL Normal [id number] - [facility] H TSH 4.22uIU/mL Normal 0.35 - 4.5 [facility] PATIENT FASTING? NO Normal [id number] [facility] ALCOHOL (BLOOD) < 3 Normal [id number] 0 - 10 [facility] TROPONIN I HIGH SENSITIVE 4.1ng/L Normal 0 - 78 [facility] GFRE 87 Normal 60 - [facility] H SODIUM 136mmol/L Normal 136 - 145 [facility] H GLUCOSE 82mg/dL Normal 74 - 100 [facility] H BUN 7mg/dL Normal 7 - 18 [facility] H CHLORIDE 106mmol/L Normal 98 - 107 [facility] H POTASSIUM SERUM 4.2mmol/L Normal 3.5 - 5.1 C [facility] CO2 25mmol/L Normal 21 - 32 [facility] H CREATININE 1.06mg/dL Normal 0.55 - 1.3 [facility] WBC 8.8K/uL Normal 3.7 - 10.3 [facility] ABSOLUTE GRANULOCYTES 6.4K/uL Normal 2.2 - 7.3 [facility] ABSOLUTE BASO 0.1K/uL Normal 0 - 0.2 [facility] RBC 5.5M/uL Normal 4.3 - 6 [facility] H IMMATURE GRANULOCYTES 0% Normal 0 - 0.45 [facility] EOSINOPHILS 0% Normal 0 - 6 [facility] MMH MPV 11fL Normal 8 - 12 [facility] H ABSOLUTE MONOS 0.5K/uL Normal 0.2 - 1.5 CT [facility] BASOPHILS 1% Normal 0 - 2 [facility] H NUCLEATED RBC 0% Normal 0 - 0.2 [facility] MCV 76fL Below low normal 83 - 102 [facility] MCH 26PG Below low normal 27 - 34 [facility] HCT 42% Normal 40 - 52 [facility] H ABSOLUTE LYMPHS 1.8K/uL Normal 1.5 - 4.9 C [facility] GRANULOCYTES 73% Normal 23 - 78 [facility] MONOCYTES 6% Normal 0 - 12 [facility] H ABSOLUTE EOS 0K/uL Normal 0 - 0.7 [facility] LYMPHS 20% Normal 16 - 50 [facility] H ABSOLUTE IMMATURE GRANULOCYTES 0K/uL Normal 0 - 0.3 [facility] HGB 14g/dL Normal 13.5 - 18 [facility] H RDW 15.7% Above high normal 11.1 - 13.3 [facility] PLATELET COUNT 283K/uL Normal [id number] 150 - 480 [facility] MCHC 33.3g/dL Normal [id number] 31 - 36 [facility] H ABSOLUTE NUCLEATED RBC 0K/uL Normal 0 - 0.012 [facility] PATIENT FASTING? UNKNOWN Normal [id number] [facility] AMPHETAMINES NEG Normal [id number] - CTPM HMM[facility] MARIJUANA NEG Normal [id number] - [facility] H COCAINE NEG Normal [id number] - [facility] H BARBITURATES NEG Normal 727844109700 - [facility] PCP NEG Normal [id number] - [facility] H OPIATES NEG Normal [id number] - [facility] H BENZODIAZEPINES NEG Normal [id number] - [facility] BILIRUBIN,TOTAL 0.3mg/dL Normal [id number] 0.2 - 1 [facility] ALKALINE PHOSPHATASE 78U/L Normal [id number] 50 - 1 36 [facility] GLOBULIN 4.3g/dL Above high normal [id number] 2.4 - 4.2 [facility] A/G RATIO 0.8g/dL Normal [id number] [facility] H PROTEIN, TOTAL 7.9g/dL Normal [id number] 6.4 - 8.2 CT [facility] TSH 3.73uIU/mL Normal [id number] 0.35 - 4.5 [facility] GFRE 93 Normal [id number] 60 - [facility] H TROPONIN I HIGH SENSITIVE 3ng/L Normal 257462090814 0 - 78 [facility] ALBUMIN 3.6g/dL Normal [id number] 3.4 - 5 [facility] H SODIUM 138mmol/L Normal [id number] 136 - 145 [facility] H GLUCOSE 94mg/dL Normal [id number] 74 - 100 [facility] H BUN 13mg/dL Normal [id number] 7 - 18 [facility] H CHLORIDE 106mmol/L Normal [id number] 98 - 107 [facility] H POTASSIUM SERUM 3.8mmol/L Normal [id number] 3.5 - 5.1 C [facility] CO2 24mmol/L Normal [id number] 21 - 32 [facility] H AST (SGOT) 40U/L Above high normal [id number] 15 - 37 [facility] ALT (SGPT) 40U/L Normal [id number] 12 - 78 [facility] BUN/CREAT.RATIO 13 Normal 648676653794 [facility] CREATININE 1mg/dL Normal [id number] 0.55 - 1.3 [facility] ALCOHOL (BLOOD) < 3 Normal [id number] 0 - 10 [facility] WBC 9.4K/uL Normal [id number] 3.7 - 10.3 [facility] ABSOLUTE GRANULOCYTES 4.8K/uL Normal [id number] 2.2 - 7.3 [facility] ABSOLUTE BASO 0.1K/uL Normal [id number] 0 - 0.2 [facility] RBC 5.36M/uL Normal [id number] 4.3 - 6 [facility] H IMMATURE GRANULOCYTES 0% Normal [id number] 0 - 0.45 [facility] EOSINOPHILS 2% Normal [id number] 0 - 6 [facility] MMH MPV 11fL Normal [id number] 8 - 12 [facility] ABSOLUTE MONOS 0.7K/uL Normal [id number] 0.2 - 1.5 [facility] BASOPHILS 1% Normal [id number] 0 - 2 [facility] H NUCLEATED RBC 0% Normal [id number] 0 - 0.2 [facility] MCV 75fL Below low normal [id number] 83 - 102 [facility] MCH 25PG Below low normal 935855892403 27 - 34 [facility] HCT 40.3% Normal [id number] 40 - 52 [facility] ABSOLUTE LYMPHS 3.7K/uL Normal [id number] 1.5 - 4.9 [facility] GRANULOCYTES 51% Normal [id number] 23 - 78 [facility] MONOCYTES 8% Normal [id number] 0 - 12 [facility] ABSOLUTE EOS 0.2K/uL Normal [id number] 0 - 0.7 [facility] LYMPHS 39% Normal [id number] 16 - 50 [facility] H ABSOLUTE IMMATURE GRANULOCYTES 0K/uL Normal [id number] 0 - 0.3 [facility] HGB 13.3g/dL Below low normal [id number] 13.5 - 18 [facility] RDW 15.4% Above high normal [id number] 11.1 - 13.3 [facility] PLATELET COUNT 272K/uL Normal [id number] 150 - 480 [facility] MCHC 33g/dL Normal [id number] 31 - 36 [facility] H ABSOLUTE NUCLEATED RBC 0K/uL Normal [id number] 0 - 0.012 [facility] PATIENT FASTING? UNKNOWN Normal [id number] [facility] INFLUENZA B BY PCR INFLUENZA B NEGATIVE. Normal [id number] [facility] INFLUENZA A BY PCR INFLUENZA A NEGATIVE. Normal [id number] [facility] AMPHETAMINES NEG Normal [id number] - [facility] HMM[facility] MARIJUANA NEG Normal 352302484927 - [facility] H COCAINE NEG Normal [id number] - [facility] H BARBITURATES NEG Normal 525814603036 - [facility]MM[facility] PCP NEG Normal [id number] - [facility] H OPIATES NEG Normal [id number] - [facility] H BENZODIAZEPINES NEG Normal 729123040339 - [facility] TROPONIN I HIGH SENSITIVE 4ng/L Normal [id number] 0 - 78 [facility] GFRE 87 Normal 552120824373 60 - [facility] ALBUMIN 4.1g/dL Normal [id number] 3.4 - 5 [facility] SODIUM 136mmol/L Normal [id number] 136 - 145 [facility] GLUCOSE 99mg/dL Normal 175154506787 74 - 100 [facility] BUN 8mg/dL Normal [id number] 7 - 18 [facility] BILIRUBIN,TOTAL 0.4mg/dL Normal 321251341122 0.2 - 1 [facility] CHLORIDE 104mmol/L Normal [id number] 98 - 107 [facility] POTASSIUM SERUM 3.6mmol/L Normal 880203249179 3.5 - 5.1 C [facility] CO2 26mmol/L Normal 210506266929 21 - 32 [facility] ALKALINE PHOSPHATASE 79U/L Normal [id number] 50 - 1 36 [facility] AST (SGOT) 40U/L Above high normal 765424840332 15 - 37 [facility] GLOBULIN 4.3g/dL Above high normal 754155076284 2.4 - 4.2 [facility] A/G RATIO 1g/dL Normal [id number] [facility] ALT (SGPT) 33U/L Normal 643291262405 12 - 78 [facility] MH BUN/CREAT.RATIO 7.5 Normal 552323413948 [facility] CREATININE 1.06mg/dL Normal [id number] 0.55 - 1.3 [facility] PROTEIN, TOTAL 8.4g/dL Above high normal 603149838185 6.4 - 8.2 [facility] LIPASE 48U/L Normal [id number] 13 - 75 [facility] H ALCOHOL (BLOOD) < 3 Normal [id number] 0 - 10 C [facility] WBC 8.5K/uL Normal [id number] 3.7 - 10.3 [facility] ABSOLUTE GRANULOCYTES 5.3K/uL Normal 416203361518 2.2 - 7.3 [facility] ABSOLUTE BASO 0.1K/uL Normal 404115907748 0 - 0.2 [facility] RBC 5.61M/uL Normal 435467189765 4.3 - 6 [facility] IMMATURE GRANULOCYTES 0% Normal [id number] 0 - 0.45 [facility] EOSINOPHILS 1% Normal 384362922381 0 - 6 [facility] MMH MPV 11fL Normal [id number] 8 - 12 [facility] ABSOLUTE MONOS 0.6K/uL Normal 359862292173 0.2 - 1.5 CT [facility] BASOPHILS 1% Normal 554467982326 0 - 2 [facility] NUCLEATED RBC 0% Normal 391576333960 0 - 0.2 [facility] MCV 76fL Below low normal 167597526355 83 - 102 [facility] MCH 25PG Below low normal [id number] 27 - 34 [facility] HCT 42.4% Normal 938608357623 40 - 52 [facility] ABSOLUTE LYMPHS 2.4K/uL Normal [id number] 1.5 - 4.9 C [facility] GRANULOCYTES 63% Normal 779692778960 23 - 78 [facility] MONOCYTES 8% Normal [id number] 0 - 12 [facility] ABSOLUTE EOS 0.1K/uL Normal 180519831111 0 - 0.7 [facility] LYMPHS 28% Normal [id number] 16 - 50 [facility] ABSOLUTE IMMATURE GRANULOCYTES 0K/uL Normal 683518388685 0 - 0.3 [facility] HGB 13.9g/dL Normal 843547380702 13.5 - 18 [facility] RDW 15.2% Above high normal 308246569108 11.1 - 13.3 [facility] PLATELET COUNT 285K/uL Normal [id number] 150 - [address] CT [facility] MCHC 32.8g/dL Normal 624675202327 31 - 36 [facility] ABSOLUTE NUCLEATED RBC 0K/uL Normal 875004392585 0 - 0.012 [facility] PATIENT FASTING? UNKNOWN Normal [id number] [facility] RPR NONREACTIVE Normal [id number] - [facility] MMH GLYCOHEMOGLOBIN (A1C) 6.1% Above high normal 166526951984 4 - 5.6 [facility] SODIUM 140mmol/L Normal 469489513915 136 - 145 [facility] GLUCOSE 90mg/dL Normal 614365856974 74 - 100 [facility] BUN 10mg/dL Normal 7 - 18 [facility] CALCIUM 9.6mg/dL Normal 962846304007 8.5 - 10.1 [facility] CHLORIDE 108mmol/L Above high normal 473107412644 98 - 107 [facility] POTASSIUM SERUM 4.2mmol/L Normal [id number] 3.5 - 5.1 C [facility] CO2 25mmol/L Normal 21 - 32 [facility] H CREATININE 1mg/dL Normal 0.55 - 1.3 [facility] GFRE 93 Normal [id number] 60 - [facility] ALT (SGPT) 34U/L Normal 12 - 78 [facility] MH TRIGLYCERIDE 56mg/dL Normal [id number] - 150 [facility] LDL 130 Above high normal 701646965789 0 - 129 [facility] CHOLESTEROL 181mg/dL Normal 118218662238 - 200 [facility] MMH HDL 40mg/dL Normal 773001506465 - [facility] H AST (SGOT) 23U/L Normal 15 - 37 [facility] MH TSH 2.35uIU/mL Normal 191544791580 0.35 - 4.5 [facility] GGT 56U/L Normal [id number] 15 - 85 [facility] WBC 7.3K/uL Normal [id number] 3.7 - 10.3 [facility] ABSOLUTE GRANULOCYTES 3.6K/uL Normal 707213166412 2.2 - 7.3 [facility] ABSOLUTE BASO 0.1K/uL Normal 355420997000 0 - 0.2 [facility] RBC 5.67M/uL Normal 558818498803 4.3 - 6 [facility] H IMMATURE GRANULOCYTES 0% Normal 690814632150 0 - 0.45 [facility] EOSINOPHILS 2% Normal 786847869643 0 - 6 [facility] MMH MPV 11fL Normal [id number] 8 - 12 [facility] ABSOLUTE MONOS 0.6K/uL Normal 378903283601 0.2 - 1.5 CT [facility] BASOPHILS 1% Normal 852073634505 0 - 2 [facility] H NUCLEATED RBC 0% Normal [id number] 0 - 0.2 [facility] MCV 77fL Below low normal 743520517211 83 - 102 [facility] MCH 25PG Below low normal 642365537318 27 - 34 [facility] HCT 43.4% Normal 413211928259 40 - 52 [facility] ABSOLUTE LYMPHS 2.9K/uL Normal [id number] 1.5 - 4.9 C [facility] GRANULOCYTES 49% Normal 073844759870 23 - 78 [facility] MONOCYTES 8% Normal 344606646586 0 - 12 [facility] ABSOLUTE EOS 0.2K/uL Normal 101780156850 0 - 0.7 [facility] LYMPHS 40% Normal [id number] 16 - 50 [facility] ABSOLUTE IMMATURE GRANULOCYTES 0K/uL Normal 774510481730 0 - 0.3 [facility] HGB 14g/dL Normal 670398210006 13.5 - 18 [facility] RDW 15.1% Above high normal 761135715183 11.1 - 13.3 [facility] PLATELET COUNT 266K/uL Normal [id number] 150 - [address] [facility] MCHC 32.3g/dL Normal 448535084003 31 - 36 [facility] H ABSOLUTE NUCLEATED RBC 0K/uL Normal 332815917885 0 - 0.012 [facility] PATIENT FASTING? YES Normal [id number] [facility] AMPHETAMINES NEG Normal [id number] - [facility] MARIJUANA NEG Normal 499299143976 - [facility] H COCAINE NEG Normal 105965306288 - [facility] H BARBITURATES NEG Normal 161558794152 - [facility] PCP NEG Normal 418957964396 - [facility] H OPIATES NEG Normal 927160633937 - [facility] H BENZODIAZEPINES NEG Normal 052157834822 - [facility] TROPONIN I HIGH SENSITIVE 3.1ng/L Normal [id number] 0 - 78 [facility] ALCOHOL (BLOOD) < 3 Normal 425015510568 0 - 10 C [facility] WBC 8.2K/uL Normal [id number] 3.7 - 10.3 [facility] ABSOLUTE GRANULOCYTES 4.6K/uL Normal [id number] 2.2 - 7.3 [facility] ABSOLUTE BASO 0.1K/uL Normal 153154752355 0 - 0.2 [facility] RBC 5.75M/uL Normal [id number] 4.3 - 6 [facility] H IMMATURE GRANULOCYTES 0% Normal 918925031905 0 - 0.45 [facility] EOSINOPHILS 2% Normal [id number] 0 - 6 [facility] MMH MPV 12fL Normal [id number] 8 - 12 [facility] H ABSOLUTE MONOS 0.6K/uL Normal 989443921252 0.2 - 1.5 CT [facility] BASOPHILS 1% Normal 092630951657 0 - 2 [facility] H NUCLEATED RBC 0% Normal 884682893557 0 - 0.2 [facility] MCV 77fL Below low normal 872346510388 83 - 102 [facility] MCH 25PG Below low normal 972104093863 27 - 34 [facility] HCT 44% Normal [id number] 40 - 52 [facility] ABSOLUTE LYMPHS 2.7K/uL Normal [id number] 1.5 - 4.9 C [facility] GRANULOCYTES 56% Normal 760260568715 23 - 78 [facility] MONOCYTES 8% Normal 557534226795 0 - 12 [facility] H ABSOLUTE EOS 0.2K/uL Normal 830512117140 0 - 0.7 [facility] LYMPHS 34% Normal [id number] 16 - 50 [facility] H ABSOLUTE IMMATURE GRANULOCYTES 0K/uL Normal 532538652428 0 - 0.3 [facility] HGB 14.3g/dL Normal 398991169504 13.5 - 18 [facility] H RDW 15.1% Above high normal 594140262766 11.1 - 13.3 [facility] PLATELET COUNT 259K/uL Normal [id number] 150 - 480 [facility] MCHC 32.5g/dL Normal 735047064855 31 - 36 [facility] ABSOLUTE NUCLEATED RBC 0K/uL Normal 537934675392 0 - 0.012 [facility] AMPHETAMINES NEG Normal 090040875075 - [facility] MARIJUANA NEG Normal - [facility] COCAINE NEG Normal - [facility] H BARBITURATES NEG Normal - [facility] PCP NEG Normal - [facility] H OPIATES NEG Normal - [facility] H BENZODIAZEPINES NEG Normal 764502609507 - C [facility] CALCIUM 9.6mg/dL Normal 821897809350 8.5 - 10.1 [facility] GFRE 88 Normal 450840643492 60 - [facility] H SODIUM 140mmol/L Normal 214524401216 136 - 145 [facility] GLUCOSE 97mg/dL Normal 434204472909 74 - 100 [facility] BUN 9mg/dL Normal 747861673787 7 - 18 [facility] CHLORIDE 108mmol/L Above high normal 256863222922 98 - 107 [facility] POTASSIUM SERUM 4.1mmol/L Normal 954735744614 3.5 - 5.1 [facility] CO2 28mmol/L Normal 647765239745 21 - 32 [facility] H CREATININE 1.05mg/dL Normal 724984769902 0.55 - 1.3 [facility] PATIENT FASTING? UNKNOWN Normal 866247031559 [facility] COLOR OF URINE Yellow Normal 527950154044 - [facility] LEUKOCYTE ESTERASE Negative Normal - [facility] PH OF URINE 6 Normal 383442056624 5 - 8 [facility] KETONES URINE Negative Normal - [facility] UROBILINOGEN, URINE 0.2EU/dL Normal 802833721235 0.2 - 1 [facility] NITRITE Negative Normal - [facility] BILIRUBIN, URINE Negative Normal - [facility] CLARITY OF URINE Clear Normal - [facility] PROTEIN QUAL Negative Normal - [facility] HEMOGLOBIN, URINE Trace Abnormal - [facility] GLUCOSE, QUAL Negative Normal - [facility] SPECIFIC GRAVITY 1.02 Normal 1.005 - 1.03 [facility] RBC 0-2 Normal 0 - 2 [facility] MUCUS Trace Normal - [facility] EPITHELIAL CELLS Few Normal - [facility] WBC 0-2 Normal 0 - 2 [facility] CANNABINOID Negative Normal - [facility] OPIATES, URINE Negative Normal - [facility] COCAINE METABOLITES URINE Negative Normal - [facility] BENZODIAZEPINE, URINE Negative Normal - [facility] TROPONIN I 0.01ng/mL Normal - [facility] LIPASE 48U/L Normal 8 - 51 [facility] CREATININE 1mg/dL Normal 0.6 - 1.2 [facility] POTASSIUM 4.1mmol/L Normal 3.6 - 5.1 [facility] BICARBONATE 23mmol/L Normal 23 - 32 [facility] GLOMERULAR FILTRATION RATE ML/MIN/1.73 SQ M.PREDICTED 103mL/min/1.73m *2 Normal 60 - [facility] SODIUM 138mmol/L Normal 137 - 144 [facility] CHLORIDE 106mmol/L Normal 100 - 111 [facility] CALCIUM, TOTAL 9.9mg/dL Normal 8.4 - 10.2 [facility] UREA NITROGEN 12mg/dL Normal 8 - 24 [facility] ANION GAP 9mmol/L Normal 3 - 11 [facility] GLUCOSE 84mg/dL Normal 70 - 200 [facility] INR 1.1ratio Normal 0.9 - 1.1 [facility] PROTHROMBIN TIME (PT) 12.1seconds Normal 10.4 - 13 [facility] ALT (SGPT) 30U/L Normal 8 - 39 [facility] PROTEIN TOTAL 7.7g/dL Normal 865678825439 6.2 - 8.1 [facility] AST (SGOT) 24U/L Normal [id number] 17 - 35 [facility] BILIRUBIN, TOTAL 0.2mg/dL Normal 668912398534 0.1 - 1.2 [facility] ALKALINE PHOSPHATASE 72U/L Normal 576720341230 39 - 1 13 [facility] BILIRUBIN, DIRECT 0.1mg/dL Normal [id number] 0 - 0.5 [facility] ALBUMIN, AUTOMATED 4.2g/dL Normal 444892091617 3.8 - 5. 3 [facility] RBC DISTRIBUTION WIDTH 15% Above high normal 657630865684 11.6 - 14.8 [facility] AUTO NRBC % 0% Normal 614084575575 0 - 0 [facility] [address]. 410*3/uL Normal 487258129523 1.4 - 6.[address] [facility] [address] 0.610*3/uL Normal 776115675577 0.2 - 0.8 [facility] MCHC 33g/dL Normal 187837961420 32 - 36 [facility] MCH 24.7pg Below low normal 016953769630 26 - 34 [facility] IMMATURE GRANULOCYTE % 0.3% Normal 039532738032 0 - 0.6 [facility] EOSINOPHIL % 2.4% Normal 171197992976 0 - 6 [facility] [address] BAS[address]HIL [address] 0.110*3/uL Normal 755887987405 0 - 0 .2 [facility] MCV 74.9fL Below low normal 395954599677 80 - 100 [facility] PLATELET COUNT 39310*3/uL Normal [id number] 150 - 440 [facility] BASOPHILS % 0.8% Normal [id number] 0 - 2 [facility] [address]. 3.110*3/uL Normal 608185959254 0.7 - 4.[address] [facility] [address] 0.210*3/uL Normal 055220428966 0 - 0.3 [facility] HEMATOCRIT 41.2% Normal [id number] 40 - 52 [facility] WHITE CELL COUNT 7.910*3/uL Normal 401917402374 3.8 - 10.6 [facility] RED CELL COUNT 5.510*6/???L Normal 524951409136 4.4 - 5.9 [facility] MONOCYTE % 7.2% Normal [id number] 4 - 12 [facility] NEUTROPHIL % 50.2% Normal 40 - 70 [facility] HEMOGLOBIN 13.6g/dL Normal 272578945713 13 - 18 [facility] LYMPHOCYTE % 39.1% Normal [id number] 20 - 50 [facility] MAGNESIUM 1.8mg/dL Normal 546022311209 1.8 - 3 [facility] Calcium SerPl-mCnc 9.8mg/dL Normal 184551829551 8.8 - 10.2 [facility] Anion Gap3 SerPl-sCnc 15 Normal [id number] 7 - 17 [facility] BUN SerPl-mCnc 9mg/dL Normal 200405026483 6 - 20 [facility] HCO3 SerPl-sCnc 22mmol/L Normal [id number] 20 - 30 [facility] Creat SerPl-mCnc 0.9mg/dL Normal [id number] 0.4 - 1.3 [facility] Chloride SerPl-sCnc 98mmol/L Normal [id number] 98 - 10 7 [facility] BUN/Creat SerPl 10 Normal [id number] 8 - 23 [facility] GFR/BSA.pred SerPlBld QRO-FDI-PdXWis 60mL/min/1.73m2 Normal [id number] - [facility] Potassium SerPl-sCnc 4.2mmol/L Normal [id number] 3.3 - 5.3 [facility] Sodium SerPl-sCnc 135mmol/L Below low normal 665207072190 13 6 - 144 [facility] Glucose SerPl-mCnc 96mg/dL Normal 758937379267 70 - 100 [facility] Monocytes # Bld Auto 0.06h0291/uL Normal 095795978231 0 - 1 [facility] nRBC/100 WBC Bld Auto-Rto 0% Normal [id number] 0 - 1 [facility] Neutrophils # Bld Auto 4.40s2771/uL Normal [id number] 2 - 7.6 [facility] Eosinophil # Bld Auto 0.08n9400/uL Normal 883710346495 0 - 1 [facility] nRBC # Bld Auto 0z2667/uL Normal 885308281208 0 - 1 [facility] MCHC RBC Auto-mCnc 33.1g/dL Normal [id number] 31 - 36 [facility] Monocytes/leuk NFr Bld Auto 7.7% Normal 776454387747 4 - 12 [facility] Basophils # Bld Auto 0.31a4131/uL Normal 324165003488 0 - 1 [facility] WBC # Bld Auto 7.6k2730/uL Normal [id number] 4 - 11 [facility] Hct VFr Bld Auto 44.4% Normal [id number] 38.5 - 50 [facility] RDW RBC Auto-Rto 14.8% Normal [id number] 11 - 15 [facility] PMV Bld Auto 11.5fL Normal 894742957790 8 - 12 [facility] Eosinophil/leuk NFr Bld Auto 1% Normal 337809856512 0 - 5 [facility] MCH RBC Qn Auto 24.7pg Below low normal 989768870011 27 - 33 [facility] Basophils/leuk NFr Bld Auto 0.8% Normal 686099152927 0 - 1.4 [facility] Lymphocytes # Bld Auto 2.23d1394/uL Normal [id number] 0.6 - 3.7 [facility] RBC # Bld Auto 5.96M/uL Normal [id number] 4 - 6 [facility] Neutrophils/leuk NFr Bld Auto 58% Normal [id number] 39 - 72 [facility] Imm Granulocytes # Bld Auto 0.63o3166/uL Normal [id number] 0 - 0.3 [facility] Platelet # Bld Auto 458z7664/uL Normal [id number] 150 - 420 [facility] MCV RBC Auto 74.5fL Below low normal 137231237581 80 - 10 0 [facility] Lymphocytes/leuk NFr Bld Auto 32.4% Normal [id number] 17 - 50 [facility] Imm Granulocytes/leuk NFr Bld Auto 0.1% Normal [id number] 0 - 1 [facility] Hgb Bld-mCnc 14.7g/dL Normal [id number] 13.2 - 17.1 [facility] TROPONIN T < 6 Normal 816099648624 - [facility] TROPONIN T 6NG/L Normal [id number] - [facility] BLOOD UREA NITROGEN 9MG/DL Normal 411813430752 6 - 20 [facility] EST CREATININE CLEARANCE CALC 146.4mL/min Normal 690451320401 [facility] BILIRUBIN, TOTAL 0.2MG/DL Below low normal [id number] 0.3 - 1.2 [facility] CALCIUM 10.2MG/DL Normal [id number] 8.6 - 10.4 [facility] CO2 26MMOL/L Normal 089107450101 22 - 29 [facility] CREATININE 1MG/DL Normal 637880306344 0.7 - 1.2 [facility] ALT 29U/L Normal [id number] 5 - 41 [facility] ANION GAP 14MMOL/L Normal [id number] - [facility] EST. GLOMERULAR FILTRATION > 60 Normal [id number] [facility] AST 28U/L Normal [id number] 6 - 40 [facility] POTASSIUM 4MMOL/L Normal [id number] 3.5 - 4.9 [facility] ALKALINE PHOSPHATASE 81U/L Normal [id number] 40 - 1 30 [facility] TOTAL PROTEIN 8.3G/DL Normal [id number] 6.6 - 8.7 [facility] GLUCOSE, RANDOM 93MG/DL Normal 980047945911 70 - 139 [facility] BUN/CREATININE RATIO 9 Normal [id number] [facility] CHLORIDE 100MMOL/L Normal [id number] 98 - 107 [facility] SODIUM 136MMOL/L Normal [id number] 136 - 145 [facility] ALBUMIN 4.4G/DL Normal [id number] 3.5 - 5.2 [facility] HEMOGLOBIN 14.5GM/DL Normal [id number] 13.5 - 18 [facility] RDW 15.1% Above high normal [id number] 11.5 - 14.5 [facility] RBC 5.78M/UL Normal [id number] 4.7 - 6 [facility] ABSOLUTE LYMPHS 1.6K/UL Normal [id number] 1 - 4.8 [facility] HEMATOCRIT 44% Normal [id number] 40 - 54 [facility] MCH 25.1PG Below low normal [id number] 27 - 31 [facility] MEAN PLATELET VOLUME 10.8fL Normal 662462543482 8. 8 - 13.6 [facility] MCV 76.1FL Below low normal 287359560479 78 - 100 [facility] BASOPHILS 0.6% Normal [id number] [facility] EOSINOPHILS 0.4% Normal [id number] [facility] LYMPHOCYTES 22.5% Normal [id number] [facility] ABSOLUTE MONOS 0.5K/UL Normal 723993184511 0 - 0.8 [facility] ABSOLUTE NEUTROPHILS 5K/UL Normal [id number] 1.8 - 7.8 [facility] IMMATURE GRANULOCYTE PERCENT 0.1% Normal [id number] 0 - 0.8 [facility] ABSOLUTE EOS 0K/UL Normal 548270072297 0 - 0.5 [facility] MONOCYTES 6.7% Normal [id number] [facility] WBC 7.1K/UL Normal [id number] 4 - 10.5 [facility] PLATELET COUNT 247K/UL Normal 555289123051 150 - 450 [facility] MCHC 33GM/DL Normal [id number] 32 - 36 [facility] NEUTROPHILS 69.7% Normal 524692111354 [facility] ABSOLUTE BASOS 0K/UL Normal [id number] 0 - 0.2 [facility] ABSOLUTE IMMATURE GRANULOCYTE 0.01K/UL Normal [id number] 0 - 0.08 [facility] COCAINE, URINE, QUAL NEGATIVE Normal - [facility] BENZODIAZEPINE, URINE, QUAL NEGATIVE Normal - [facility] CANNABINOIDS, URINE, QUAL NEGATIVE Normal - [facility] BARBITUATES, URINE, QUAL NEGATIVE Normal - [facility] OPIATES, URINE, QUAL NEGATIVE Normal - [facility] AMPHETAMINES, URINE, QUAL NEGATIVE Normal - [facility] BLOOD UREA NITROGEN 11MG/DL Normal 246044894011 6 - 20 [facility] EST CREATININE CLEARANCE CALC 190.6mL/min Normal 266350826729 [facility] BILIRUBIN, TOTAL 0.2MG/DL Below low normal 686487746961 0.3 - 1.2 [facility] CALCIUM 9.8MG/DL Normal 780086832293 8.6 - 10.4 [facility] CO2 24MMOL/L Normal [id number] 22 - 29 [facility] CREATININE 0.9MG/DL Normal [id number] 0.7 - 1.2 [facility] ALT 22U/L Normal [id number] 5 - 41 [facility] ANION GAP 16MMOL/L Normal 020329948170 - [facility] EST. GLOMERULAR FILTRATION > 60 Normal 237855354063 [facility] AST 20U/L Normal [id number] 6 - 40 [facility] POTASSIUM 3.9MMOL/L Normal 072292027067 3.5 - 4.9 [facility] ALKALINE PHOSPHATASE 80U/L Normal 992330747551 40 - 1 30 [facility] TOTAL PROTEIN 7.2G/DL Normal 631331566543 6.6 - 8.7 [facility] GLUCOSE, RANDOM 122MG/DL Normal 858979376478 70 - 139 [facility] BUN/CREATININE RATIO 12.2 Normal 548484331341 [facility] CHLORIDE 100MMOL/L Normal 799515982313 98 - 107 [facility] SODIUM 136MMOL/L Normal 951112971518 136 - 145 [facility] ALBUMIN 3.9G/DL Normal 830880736713 3.5 - 5.2 [facility] ETHYL ALCOHOL < 11 Normal 773215545574 - 11 [facility] HEMOGLOBIN 13.2GM/DL Below low normal 622036951280 13.5 - 18 [facility] RDW 14.9% Above high normal [id number] 11.5 - 14.5 [facility] RBC 5.25M/UL Normal [id number] 4.7 - 6 [facility] ABSOLUTE LYMPHS 2.7K/UL Normal [id number] 1 - 4.8 [facility] HEMATOCRIT 40% Normal 592060387653 40 - 54 [facility] MCH 25.1PG Below low normal 536425804233 27 - 31 [facility] MEAN PLATELET VOLUME 10.7fL Normal 280275218675 8. 8 - 13.6 [facility] MCV 76.2FL Below low normal 614529878876 78 - 100 [facility] BASOPHILS 0.8% Normal 318770414626 [facility] EOSINOPHILS 2% Normal 607785548612 [facility] LYMPHOCYTES 35.5% Normal 485547086340 [facility] ABSOLUTE MONOS 0.6K/UL Normal 423275963107 0 - 0.8 [facility] ABSOLUTE NEUTROPHILS 4.1K/UL Normal [id number] 1.8 - 7.8 [facility] IMMATURE GRANULOCYTE PERCENT 0.1% Normal [id number] 0 - 0.8 [facility] ABSOLUTE EOS 0.2K/UL Normal [id number] 0 - 0.5 [facility] MONOCYTES 8.2% Normal [id number] [facility] WBC 7.6K/UL Normal [id number] 4 - 10.5 [facility] PLATELET COUNT 258K/UL Normal 541752982176 150 - 450 [facility] MCHC 33GM/DL Normal 310374384011 32 - 36 [facility] NEUTROPHILS 53.4% Normal 467323095207 [facility] ABSOLUTE BASOS 0.1K/UL Normal 754893758057 0 - 0.2 [facility] ABSOLUTE IMMATURE GRANULOCYTE 0.01K/UL Normal [id number] 0 - 0.08 [facility] AMPHETAMINES NEG Normal 416262927739 - [facility] MARIJUANA NEG Normal 020108821912 - [facility]PM[facility]MM H COCAINE NEG Normal [id number] - [facility]PM[facility] H BARBITURATES NEG Normal 063965859471 - [facility] PCP NEG Normal 920327052448 - [facility]PM[facility]MM H OPIATES NEG Normal 245792860842 - [facility]PM[facility]MM H BENZODIAZEPINES NEG Normal 391862789837 - C T[facility] HIV ANTIBODY - EXPOSURE NON-REACTIVE Normal 516184909361 - [facility] ALBUMIN 3.7g/dL Normal 894738275826 3.4 - 5 [facility] H SODIUM 140mmol/L Normal 297797223657 136 - 145 [facility] H GLUCOSE 115mg/dL Above high normal 993717772898 74 - 100 [facility] BUN 13mg/dL Normal 444375303168 7 - 18 [facility] H BILIRUBIN,TOTAL 0.3mg/dL Normal 255403517778 0.2 - 1 [facility] CHLORIDE 108mmol/L Above high normal 98 - 107 [facility] POTASSIUM SERUM 4mmol/L Normal 3.5 - 5.1 [facility] CO2 25mmol/L Normal 21 - 32 [facility] H ALKALINE PHOSPHATASE 84U/L Normal 50 - 1 36 [facility] AST (SGOT) 24U/L Normal 15 - 37 CTPM GLOBULIN 4.4g/dL Above high normal 2.4 - 4.2 [facility]MM[facility] A/G RATIO 0.8g/dL Normal CTPM[facility]MM H ALT (SGPT) 31U/L Normal 12 - [facility] BUN/CREAT.RATIO 11.3 Normal C [facility] CREATININE 1.15mg/dL Normal 0.55 - 1.3 CTPMM PROTEIN, TOTAL 8.1g/dL Normal 6.4 - 8.2 CT PM[facility]MMH ALCOHOL (BLOOD) < 3 Normal 572257202172 0 - 10 [facility] MAGNESIUM 1.8mg/dL Normal 1.8 - 2.4 CTPMHMM H GFRE 79 Normal 60 - CTPM[facility]MM H WBC 7.4K/uL Normal [id number] 3.7 - 10.3 [facility] ABSOLUTE GRANULOCYTES 4.2K/uL Normal 2.2 - 7.3 [facility] ABSOLUTE BASO 0.1K/uL Normal 0 - 0.2 CTP [facility]MMH RBC 5.56M/uL Normal [id number] 4.3 - 6 [facility]MM H IMMATURE GRANULOCYTES 0% Normal 0 - 0.45 [facility]MM[facility] EOSINOPHILS 1% Normal 0 - 6 [facility] MMH MPV 12fL Normal 8 - 12 [facility] H ABSOLUTE MONOS 0.6K/uL Normal 0.2 - 1.5 CT [facility] BASOPHILS 1% Normal 0 - 2 [facility]MM H NUCLEATED RBC 0% Normal 0 - 0.2 CTP MMH MCV 76fL Below low normal 151668495278 83 - 102 [facility] MCH 26PG Below low normal 808011487020 27 - 34 [facility] HCT 42.3% Normal [id number] 40 - 52 [facility] H ABSOLUTE LYMPHS 2.5K/uL Normal [id number] 1.5 - 4.9 [facility] GRANULOCYTES 56% Normal 749358013068 23 - 78 [facility]TES 8% Normal 032233828519 0 - 12 [facility] H ABSOLUTE EOS 0.1K/uL Normal 628397973547 0 - 0.7 [facility] LYMPHS 34% Normal 950647418019 16 - 50 [facility] H ABSOLUTE IMMATURE GRANULOCYTES 0K/uL Normal 481614507384 0 - 0.3 [facility] HGB 14.2g/dL Normal [id number] 13.5 - 18 [facility] H RDW 14.6% Above high normal [id number] 11.1 - 13.3 [facility] PLATELET COUNT 289K/uL Normal 447117792470 150 - [address] [facility] MCHC 33.6g/dL Normal 996166599227 31 - 36 [facility] H ABSOLUTE NUCLEATED RBC 0K/uL Normal [id number] 0 - 0.012 [facility] AMPHETAMINES NEG Normal 419477188853 - [facility] MARIJUANA NEG Normal 374844965200 - CTPMHMM H COCAINE NEG Normal 318876758099 - CTPMHMM H BARBITURATES NEG Normal 813829622129 - [facility] PCP NEG Normal 786096084391 - CTPMHMM H OPIATES NEG Normal 164258860923 - CTPMHMM H BENZODIAZEPINES NEG Normal 697481612621 - C [facility] PATIENT FASTING? UNKNOWN Normal 989308450806 [facility] GLYCOHEMOGLOBIN (A1C) 6% Above high normal 560521228694 4 - 5.6 [facility]MM[facility] RPR NONREACTIVE Normal [id number] - CT[facility] MMH TSH 3.99uIU/mL Normal [id number] 0.35 - 4.5 [facility] GGT 60U/L Normal 495482640270 15 - 85 [facility]MM H ALT (SGPT) 33U/L Normal 738305614023 12 - 78 CTPM SODIUM 141mmol/L Normal 743632138176 136 - 145 [facility] H GLUCOSE 101mg/dL Above high normal 459007506631 74 - 100 [facility] BUN 11mg/dL Normal 550566605112 7 - 18 [facility] H CALCIUM 9.4mg/dL Normal [id number] 8.5 - 10.1 [facility] CHLORIDE 107mmol/L Normal 113423328125 98 - 107 [facility] H POTASSIUM SERUM 3.9mmol/L Normal [id number] 3.5 - 5.1 C [facility] CO2 24mmol/L Normal 960123441170 21 - 32 [facility]MM H CREATININE 1.1mg/dL Normal [id number] 0.55 - 1.3 [facility]MM[facility] GFRE 84 Normal [id number] 60 - CTPM[facility]MM H AST (SGOT) 20U/L Normal 334760315074 15 - 37 CTPM TRIGLYCERIDE 83mg/dL Normal 538083345487 - 150 CTPM HMMH LDL 122 Normal 555220465200 0 - 129 [facility]MM H CHOLESTEROL 181mg/dL Normal 111176533509 - 200 CTP MMH HDL 42mg/dL Normal 544697201642 - CTPMHMM H PATIENT FASTING? YES Normal [id number] [facility]MMH WBC 9.8K/uL Normal 745526492568 3.7 - 10.3 [facility] ABSOLUTE GRANULOCYTES 5.2K/uL Normal 119892427828 2.2 - 7.3 [facility] ABSOLUTE BASO 0.1K/uL Normal [id number] 0 - 0.2 CTP MHMMH RBC 5.93M/uL Normal 590822083170 4.3 - 6 [facility]MM H IMMATURE GRANULOCYTES 0% Normal 044191154937 0 - 0.45 [facility] EOSINOPHILS 2% Normal 019503570072 0 - 6 [facility] MMH MPV 11fL Normal 814956090725 8 - 12 [facility] H ABSOLUTE MONOS 0.9K/uL Normal 766969606078 0.2 - 1.5 CT [facility] BASOPHILS 1% Normal 578247549716 0 - 2 [facility]MM H NUCLEATED RBC 0% Normal 988628296130 0 - 0.2 CTP MHMMH MCV 77fL Below low normal 254094427068 83 - 102 [facility] MCH 25PG Below low normal 238233630981 27 - 34 [facility] HCT 45.8% Normal 290396771089 40 - 52 [facility]MM H ABSOLUTE LYMPHS 3.5K/uL Normal 095038866402 1.5 - 4.9 [facility] GRANULOCYTES 53% Normal 995533631253 23 - 78 [facility] MONOCYTES 9% Normal 266832237770 0 - 12 [facility]PM[facility]MM H ABSOLUTE EOS 0.2K/uL Normal 447886188135 0 - 0.7 [facility] LYMPHS 36% Normal [id number] 16 - 50 [facility]MM H ABSOLUTE IMMATURE GRANULOCYTES 0K/uL Normal 290336902500 0 - 0.3 [facility] HGB 14.8g/dL Normal 368517824431 13.5 - 18 [facility]MM H RDW 15% Above high normal 732607598807 11.1 - 13.3 CTPMM PLATELET COUNT 277K/uL Normal [id number] 150 - [address] [facility] MCHC 32.3g/dL Normal [id number] 31 - 36 [facility] H ABSOLUTE NUCLEATED RBC 0K/uL Normal [id number] 0 - 0.012 [facility] PATIENT FASTING? YES Normal [id number] [facility] IN[facility] BY PCR INFLUENZA B NEGATIVE. Normal [id number] [facility] BY PCR INFLUENZA A NEGATIVE. Normal [id number] [facility] AMPHETAMINES NEG Normal [id number] - [facility] MARIJUANA NEG Normal [id number] - [facility] H COCAINE NEG Normal [id number] - [facility] H BARBITURATES NEG Normal [id number] - [facility] PCP NEG Normal [id number] - [facility] H OPIATES NEG Normal [id number] - [facility] H BENZODIAZEPINES NEG Normal [id number] - [facility] LIPASE 230U/L Normal [id number] 73 - 393 [facility] H BILIRUBIN,TOTAL 0.3mg/dL Normal [id number] 0.2 - 1 C T[facility] ALKALINE PHOSPHATASE 86U/L Normal [id number] 50 - 1 36 [facility] AST (SGOT) 19U/L Normal [id number] 15 - 37 [facility] GLOBULIN 4.1g/dL Normal 2.4 - 4.2 [facility] H A/G RATIO 1g/dL Normal [facility]PM[facility]G H ALT (SGPT) 37U/L Normal 12 - 78 [facility] GH PROTEIN, TOTAL 8.1g/dL Normal 6.4 - 8.2 CT [facility] GFRE 82 Normal 60 - [facility] H ALBUMIN 4g/dL Normal 3.4 - 5 [facility] H SODIUM 138mmol/L Normal 136 - 145 [facility] H GLUCOSE 93mg/dL Normal 74 - 100 [facility] H BUN 9mg/dL Normal 7 - 18 [facility] H CHLORIDE 107mmol/L Normal 98 - 107 [facility] H POTASSIUM SERUM 4mmol/L Normal 3.5 - 5.1 C [facility] CO2 25mmol/L Normal 21 - 32 [facility] H BUN/CREAT.RATIO 8 Normal C [facility] CREATININE 1.12mg/dL Normal 0.55 - 1.3 [facility] AMPHETAMINES NEG Normal - [facility] MARIJUANA NEG Normal - [facility] H COCAINE NEG Normal - [facility] H BARBITURATES NEG Normal [id number] - [facility] PCP NEG Normal - [facility] H OPIATES NEG Normal [id number] - [facility] H BENZODIAZEPINES NEG Normal - C [facility] WBC 8.8K/uL Normal 3.7 - 10.3 [facility] ABSOLUTE GRANULOCYTES 5.2K/uL Normal 2.2 - 7.3 [facility] ABSOLUTE BASO 0.1K/uL Normal 0 - 0.2 [facility] RBC 5.72M/uL Normal 4.3 - 6 [facility] H IMMATURE GRANULOCYTES 0% Normal 0 - 0.45 [facility] EOSINOPHILS 2% Normal [id number] 0 - 6 [facility] MPV 11fL Normal [id number] 8 - 12 [facility] ABSOLUTE MONOS 0.7K/uL Normal [id number] 0.2 - 1.5 CT [facility] BASOPHILS 1% Normal [id number] 0 - 2 [facility] H NUCLEATED RBC 0% Normal [id number] 0 - 0.2 [facility] MCV 76fL Below low normal [id number] 83 - 102 [facility] MCH 26PG Below low normal [id number] 27 - 34 [facility] HCT 43.7% Normal [id number] 40 - 52 [facility] H ABSOLUTE LYMPHS 2.7K/uL Normal [id number] 1.5 - 4.9 C [facility] GRANULOCYTES 59% Normal [id number] 23 - 78 [facility] MONOCYTES 8% Normal [id number] 0 - 12 [facility] ABSOLUTE EOS 0.1K/uL Normal [id number] 0 - 0.7 [facility] LYMPHS 31% Normal [id number] 16 - 50 [facility] ABSOLUTE IMMATURE GRANULOCYTES 0K/uL Normal [id number] 0 - 0.3 [facility] HGB 14.8g/dL Normal [id number] 13.5 - 18 [facility] RDW 15.4% Above high normal [id number] 11.1 - 13.3 [facility] PLATELET COUNT 254K/uL Normal [id number] 150 - [address] [facility] MCHC 33.9g/dL Normal [id number] 31 - 36 [facility] H ABSOLUTE NUCLEATED RBC 0K/uL Normal [id number] 0 - 0.012 [facility] PATIENT FASTING? UNKNOWN Normal [id number] [facility] AMPHETAMINES NEG Normal [id number] - [facility]PM [facility] MARIJUANA NEG Normal [id number] - [facility] H COCAINE NEG Normal [id number] - [facility] H BARBITURATES NEG Normal [id number] - [facility] PCP NEG Normal [id number] - [facility] H OPIATES NEG Normal [id number] - [facility] H BENZODIAZEPINES NEG Normal [id number] - C [facility] ALBUMIN 3.9g/dL Normal [id number] 3.4 - 5 [facility] H SODIUM 137mmol/L Normal [id number] 136 - 145 [facility] H GLUCOSE 87mg/dL Normal [id number] 74 - 100 [facility] BUN 11mg/dL Normal [id number] 7 - 18 [facility] BILIRUBIN,TOTAL 0.2mg/dL Normal [id number] 0.2 - 1 C [facility] CHLORIDE 105mmol/L Normal [id number] 98 - 107 [facility] H POTASSIUM SERUM 4.2mmol/L Normal [id number] 3.5 - 5.1 C [facility] CO2 30mmol/L Normal [id number] 21 - 32 [facility] H ALKALINE PHOSPHATASE 83U/L Normal [id number] 50 - 1 36 [facility] AST (SGOT) 19U/L Normal [id number] 15 - [facility] GLO[facility]/dL Normal [id number] 2.4 - 4.2 [facility] H A/G RATIO 1g/dL Normal [id number] [facility] H ALT (SGPT) 33U/L Normal [id number] 12 - 78 CTPM BUN/CREAT.RATIO 9.6 Normal [id number] C [facility] CREATININE 1.15mg/dL Normal [id number] 0.55 - 1.3 [facility] PROTEIN, TOTAL 7.9g/dL Normal [id number] 6.4 - 8.2 [facility] ALCOHOL ([facility]OOD[facility] < 3 Normal [id number] 0 - 10 C [facility] GFRE 79 Normal [id number] 60 - CTPM[facility]MM H TROPONIN I HIGH SENSITIVE < 3.00 Normal [id number] 0 - 78 [facility] LIPASE 188U/L Normal [id number] 73 - 393 [facility] H WBC 8.8K/uL Normal [id number] 3.7 - 10.3 [facility] ABSOLUTE GRANULOCYTES 5.1K/uL Normal [id number] 2.2 - 7.3 [facility] ABSOLUTE BASO 0.1K/uL Normal [id number] 0 - 0.2 [facility]P [facility] RBC 5.65M/uL Normal [id number] 4.3 - 6 [facility] H IMMATURE GRANULOCYTES 0% Normal [id number] 0 - 0.45 [facility] EOSINOPHILS 2% Normal [id number] 0 - 6 [facility] MMH MPV 11fL Normal [id number] 8 - 12 [facility] H ABSOLUTE MONOS 0.9K/uL Normal [id number] 0.2 - 1.5 CT [facility] BASOPHILS 1% Normal [id number] 0 - 2 [facility] H NUCLEATED RBC 0% Normal [id number] 0 - 0.2 CTP [facility] MCV 77fL Below low normal [id number] 83 - 102 [facility] MCH 25PG Below low normal [id number] 27 - 34 [facility] HCT 43.4% Normal [id number] 40 - 52 [facility] H ABSOLUTE LYMPHS 2.5K/uL Normal [id number] 1.5 - 4.9 C [facility] GRANULOCYTES 58% Normal [id number] 23 - 78 [facility] MONOCYTES 10% Normal [id number] 0 - 12 [facility] H ABSOLUTE EOS 0.2K/uL Normal [id number] 0 - 0.7 [facility] LYMPHS 29% Normal [id number] 16 - 50 [facility] H ABSOLUTE IMMATURE GRANULOCYTES 0K/uL Normal [id number] 0 - 0.3 [facility] HGB 14.2g/dL Normal [id number] 13.5 - 18 [facility] H RDW 15% Above high normal [id number] 11.1 - 13.3 [facility] PLATELET COUNT 247K/uL Normal [id number] 150 - 480 CT [facility] MCHC 32.7g/dL Normal [id number] 31 - 36 [facility] H ABSOLUTE NUCLEATED RBC 0K/uL Normal [id number] 0 - 0.012 [facility] PATIENT FASTING? UNKNOWN Normal [id number] [facility] INFLUENZA B BY PCR INFLUENZA B NEGATIVE. Normal [id number] [facility] INFLUENZA A BY PCR INFLUENZA A NEGATIVE. Normal [id number] [facility] TARGET [address] VALUE Test not performed Normal [id number] [facility] TARGET 1 - SARS CoV2 NEGATIVE Normal [id number] [facility] SARS CoV2 - COBAS2 NEGATIVE Normal [id number] [facility] TARGET 2 - verde-SARBECOVIRUS NEGATIVE Normal [id number] [facility] TARGET [address] VALUE Test not performed Normal [id number] [facility] TARGET 2 - verde-SARBECOVIRUS QC QC OK Normal [id number] [facility] TARGET 1 - SARS CoV2 QC QC OK Normal [id number] [facility] TARGET [address] VALUE Test not performed Normal [id number] [facility] TARGET 1 - SARS CoV2 NEGATIVE Normal [id number] [facility] SARS CoV2 - COBAS2 NEGATIVE Normal [id number] [facility] TARGET 2 - verde-SARBECOVIRUS NEGATIVE Normal [id number] [facility] TARGET [address] VALUE Test not performed Normal [id number] [facility] TARGET 2 - verde-SARBECOVIRUS QC QC OK Normal [id number] [facility] TARGET 1 - SARS CoV2 QC QC OK Normal [id number] [facility] RPR NONREACTIVE Normal [id number] - [facility] MMH GLYCOHEMOGLOBIN (A1C) 6.1% Above high normal 4 - 5.6 [facility] GGT 45U/L Normal [id number] 15 - 85 [facility] H GFRE 94 Normal 60 - [facility] H TRIGLYCERIDE 71mg/dL Normal [id number] - 150 [facility] LDL 128 Normal 0 - 129 [facility] H CHOLESTEROL 178mg/dL Normal [id number] - 200 [facility] MM[facility] HDL 36mg/dL Below low normal [id number] - [facility] ALT (SGPT) 42U/L Normal 12 - 78 [facility] MH TSH 2.25uIU/mL Normal 0.35 - 4.5 [facility] AST (SGOT) 28U/L Normal 15 - 37 [facility] MH SODIUM 137mmol/L Normal 136 - 145 [facility] H GLUCOSE 100mg/dL Normal 74 - 100 [facility] H BUN 8mg/dL Normal 7 - 18 [facility] H CALCIUM 9mg/dL Normal 8.5 - 10.1 [facility] CHLORIDE 105mmol/L Normal [id number] 98 - 107 [facility] H POTASSIUM SERUM 4.5mmol/L Normal [id number] 3.5 - 5.1 C [facility] CO2 24mmol/L Normal 21 - 32 [facility] H CREATININE 0.99mg/dL Normal 0.55 - 1.3 [facility] WBC 5.8K/uL Normal [id number] 3.7 - 10.3 [facility] ABSOLUTE GRANULOCYTES 2.5K/uL Normal [id number] 2.2 - 7.3 [facility] ABSOLUTE BASO 0.1K/uL Normal [id number] 0 - 0.2 [facility]P [facility] RBC 5.64M/uL Normal [id number] 4.3 - 6 [facility] H IMMATURE GRANULOCYTES 0% Normal [id number] 0 - 0.45 [facility] EOSINOPHILS 3% Normal [id number] 0 - 6 [facility] MMH MPV 12fL Normal [id number] 8 - 12 [facility] ABSOLUTE MONOS 0.6K/uL Normal [id number] 0.2 - 1.5 CT [facility] BASOPHILS 1% Normal [id number] 0 - 2 [facility] H NUCLEATED RBC 0% Normal [id number] 0 - 0.2 [facility] MCV 78fL Below low normal [id number] 83 - 102 [facility] MCH 25PG Below low normal [id number] 27 - 34 [facility] HCT 43.9% Normal [id number] 40 - 52 [facility] H ABSOLUTE LYMPHS 2.6K/uL Normal [id number] 1.5 - 4.9 C [facility] GRANULOCYTES 43% Normal [id number] 23 - 78 [facility] MONOCYTES 10% Normal [id number] 0 - 12 [facility] H ABSOLUTE EOS 0.2K/uL Normal [id number] 0 - 0.7 [facility] LYMPHS 44% Normal [id number] 16 - 50 [facility] H ABSOLUTE IMMATURE GRANULOCYTES 0K/uL Normal [id number] 0 - 0.3 [facility] HGB 14.2g/dL Normal [id number] 13.5 - 18 [facility] H RDW 15.2% Above high normal [id number] 11.1 - 13.3 [facility] PLATELET COUNT 274K/uL Normal [id number] 150 - [address] CT [facility] MCHC 32.3g/dL Normal [id number] 31 - 36 [facility] H ABSOLUTE NUCLEATED RBC 0K/uL Normal [id number] 0 - 0.012 [facility] PATIENT FASTING? YES Normal [id number] [facility] AMPHETAMINES NEG Normal [id number] - [facility] MARIJUANA NEG Normal [id number] - [facility] H COCAINE NEG Normal [id number] - [facility] H BARBITURATES NEG Normal [id number] - [facility]PM [facility] PCP NEG Normal [id number] - [facility] H OPIATES NEG Normal [id number] - [facility] H BENZODIAZEPINES NEG Normal [id number] - C [facility] TARGET [address] VALUE 33.28 Normal [id number] [facility] TARGET 1 - SARS CoV2 POSITIVE Normal [id number] [facility] SARS CoV2 - COBAS2 POSITIVE Abnormal [id number] [facility] TARGET 2 - verde-SARBECOVIRUS POSITIVE Normal [id number] [facility] TARGET [address] VALUE 34.71 Normal [id number] [facility] TARGET 2 - verde-SARBECOVIRUS QC QC OK Normal [id number] [facility] TARGET 1 - SARS CoV2 QC QC OK Normal [id number] [facility] MRSA BY PCR NEGATIVE FOR MRSA. Normal [id number] [facility] RPR NONREACTIVE Normal [id number] - CTP MMH GLYCOHEMOGLOBIN (A1C) 5.9% Above high normal [id number] 4 - 5.6 [facility] GFRE 87 Normal [id number] 60 - [facility]MM H ALT (SGPT) 36U/L Normal [id number] 12 - 78 [facility] MH AST (SGOT) 30U/L Normal [id number] 15 - 37 [facility] MH GGT 45U/L Normal 15 - 85 [facility] H SODIUM 139mmol/L Normal 136 - 145 [facility] H GLUCOSE 82mg/dL Normal 74 - 100 [facility] H BUN 11mg/dL Normal [id number] 7 - 18 [facility] H CALCIUM 9mg/dL Normal [id number] 8.5 - 10.1 [facility] CHLORIDE 106mmol/L Normal [id number] 98 - 107 [facility] H POTASSIUM SERUM 4.6mmol/L Normal [id number] 3.5 - 5.1 C [facility] CO2 26mmol/L Normal [id number] 21 - 32 [facility] H CREATININE 1.06mg/dL Normal [id number] 0.55 - 1.3 [facility] TSH 2.32uIU/mL Normal [id number] 0.35 - 4.5 [facility] TRIGLYCERIDE 76mg/dL Normal [id number] - 150 [facility]PM [facility] LDL 108 Normal [id number] 0 - 129 [facility] H CHOLESTEROL 164mg/dL Normal [id number] - 200 [facility] MM[facility] HDL 41mg/dL Normal [id number] - [facility]MM H WBC 7.5K/uL Normal [id number] 3.7 - 10.3 [facility] ABSOLUTE GRANULOCYTES 4.4K/uL Normal [id number] 2.2 - 7.3 [facility] ABSOLUTE BASO 0.1K/uL Normal [id number] 0 - 0.2 CTP MHMM[facility] RBC 5.73M/uL Normal [id number] 4.3 - 6 [facility] H IMMATURE GRANULOCYTES 0% Normal [id number] 0 - 0.45 [facility] EOSINOPHILS 2% Normal [id number] 0 - 6 [facility] MMH MPV 11fL Normal [id number] 8 - 12 [facility] H ABSOLUTE MONOS 0.6K/uL Normal [id number] 0.2 - 1.5 CT [facility] BASOPHILS 1% Normal [id number] 0 - 2 [facility] H NUCLEATED RBC 0% Normal [id number] 0 - 0.2 CTP MH[facility] MCV 78fL Below low normal [id number] 83 - 102 [facility] MCH 25PG Below low normal [id number] 27 - 34 [facility] HCT 44.8% Normal [id number] 40 - 52 [facility] H ABSOLUTE LYMPHS 2.3K/uL Normal [id number] 1.5 - 4.9 C [facility] GRANULOCYTES 58% Normal [id number] 23 - 78 [facility] MON[facility]TES 8% Normal [id number] 0 - 12 [facility] H ABSOLUTE EOS 0.1K/uL Normal [id number] 0 - 0.7 CTPM HMM[facility] LYMPHS 31% Normal [id number] 16 - 50 [facility] H ABSOLUTE IMMATURE GRANULOCYTES 0K/uL Normal [id number] 0 - 0.3 [facility] HGB 14.4g/dL Normal [id number] 13.5 - 18 [facility] H RDW 15.5% Above high normal [id number] 11.1 - 13.3 [facility] PLATELET COUNT 279K/uL Normal [id number] 150 - 480 CT PM[facility] MCHC 32.1g/dL Normal [id number] 31 - 36 [facility] H ABSOLUTE NUCLEATED RBC 0K/uL Normal [id number] 0 - 0.012 CT[facility] PATIENT FASTING? YES Normal [id number] [facility] PHOSPHOROUS 4.3mg/dL Normal [id number] 2.5 - 4.9 [facility]-TYPE NATRIURETIC PEPTIDE < 5 Normal [id number] 0 - 450 CTPR TROPONIN I HIGH SENSITIVE 4.19ng/L Normal [id number] 0 - 78 CTPR BILIRUBIN,TOTAL 0.4mg/dL Normal [id number] 0.2 - 1 [facility] ALKALINE PHOSPHATASE 86U/L Normal [id number] 50 - 1 36 [facility] AST (SGOT) 18U/L Normal [id number] 15 - 37 CTPR GH GLOBULIN 4.1g/dL Normal [id number] 2.4 - 4.2 CT[facility] H A/G RATIO 1g/dL Normal [id number] CTPRG H ALT (SGPT) 34U/L Normal [id number] 12 - 78 CTPR GH PROTEIN, TOTAL 8.3g/dL Above high normal [id number] 6.4 - 8.2 [facility] ALBUMIN 4.2g/dL Normal [id number] 3.4 - 5 [facility] H SODIUM 138mmol/L Normal [id number] 136 - 145 [facility] H GLUCOSE 96mg/dL Normal [id number] 74 - 100 [facility] H BUN 12mg/dL Normal [id number] 7 - 18 [facility] H CHLORIDE 104mmol/L Normal [id number] 98 - 107 [facility] H POTASSIUM SERUM 3.9mmol/L Normal [id number] 3.5 - 5.1 C [facility] CO2 26mmol/L Normal [id number] 21 - 32 [facility] H BUN/CREAT.RATIO 10.3 Normal [id number] C [facility] CREATININE 1.16mg/dL Normal [id number] 0.55 - 1.3 [facility] GFRE 79 Normal [id number] 60 - [facility] H ALCOHOL (BLOOD) < 3 Normal [id number] 0 - 10 C [facility] MAGNESIUM 2.1mg/dL Normal [id number] 1.8 - 2.4 [facility] H CALCIUM 10.2mg/dL Above high normal [id number] 8.5 - 10.1 [facility] AMPHETAMINES NEG Normal [id number] - [facility] MARIJUANA NEG Normal [id number] - [facility] H COCAINE NEG Normal [id number] - [facility] H BARBITURATES NEG Normal [id number] - [facility] PCP NEG Normal [id number] - [facility] H OPIATES NEG Normal [id number] - [facility] H BENZODIAZEPINES NEG Normal [id number] - C [facility] WBC 9.5K/uL Normal [id number] 3.7 - 10.3 [facility] ABSOLUTE GRANULOCYTES 5.4K/uL Normal [id number] 2.2 - 7.3 [facility] ABSOLUTE BASO 0.1K/uL Normal [id number] 0 - 0.2 [facility]P [facility] IMMATURE GRANULOCYTES 0% Normal 0 - 0.45 [facility] NUCLEATED RBC 0% Normal 0 - 0.2 CTP [facility] MCH 26PG Below low normal 27 - 34 [facility] MONOCYTES 7% Normal 0 - 12 [facility] H ABSOLUTE IMMATURE GRANULOCYTES 0K/uL Normal 0 - 0.3 [facility] HGB 15.1g/dL Normal [id number] 13.5 - 18 [facility] H RBC 5.83M/uL Normal [id number] 4.3 - 6 [facility] H EOSINOPHILS 2% Normal [id number] 0 - 6 [facility] MPV 11fL Normal [id number] 8 - 12 [facility] H ABSOLUTE MONOS 0.7K/uL Normal [id number] 0.2 - 1.5 CT [facility] BASOPHILS 1% Normal [id number] 0 - 2 [facility] H MCV 78fL Below low normal [id number] 83 - 102 CTPR IMMATURE PLATELET FRACTION 7.1% Above high normal [id number] 1 - 7 [facility] HCT 45.4% Normal [id number] 40 - 52 [facility] H ABSOLUTE LYMPHS 3.2K/uL Normal [id number] 1.5 - 4.9 C [facility] GRANULOCYTES 57% Normal [id number] 23 - 78 [facility] ABSOLUTE EOS 0.2K/uL Normal [id number] 0 - 0.7 [facility] LYMPHS 34% Normal [id number] 16 - 50 [facility] H RDW 16.5% Above high normal [id number] 11.1 - 13.3 [facility] PL[facility] 287K/uL Normal [id number] 150 - 480 CT [facility] MCHC 33.3g/dL Normal [id number] 31 - 36 [facility] H ABSOLUTE NUCLEATED RBC 0K/uL Normal [id number] 0 - 0.012 [facility] PATIENT FASTING? UNKNOWN Normal [id number] [facility] AP GROSS DESCRIPTION Received in formalin. Dimensions: 8 x 5 x 7 mm, bisected, and submitted in one cassette. Normal [id number] [facility] LAB AP CLINICAL INFORMATION r/o wart Normal [id number] [facility] History of Medication Use Medication Directions Dispensed Refills Start Date End Date Stat OLANZapine zydis (ZyPREXA Zydis) 15 mg disintegrating tablet Take 15 mg by mouth nightly. 03/27/2024 9 active benztropine (COGENTIN) 1 mg tablet Take 1 mg by mouth nightly. 03/27/2024 9 active minocycline (MINOCIN) 100 mg capsule Take 1 capsule (100 mg total) by mouth in the morning and 1 capsule (100 mg total) before bedtime. 03/27/2024 active sertraline (ZOLOFT) 50 mg tablet Take 50 mg by mouth in the morning. 03/27/2024 active haloperidoL (HALDOL) 5 mg tablet Take by mouth 3 times daily. 03/27/2024 active tretinoin (Retin-A) 0.025 % gel Apply topically nightly. To affected area on face 03/27/2024 active ketoconazole (NIZORAL) 2 % shampoo Apply to damp skin, lather, leave on 5 minutes, and rinse daily. Daily for 4-6 weeks. 03/27/2024 active tretinoin (RETIN-A) 0.025 % cream Apply topically nightly to dark spots on face for a maximum of 12 weeks. 03/27/2024 active loxapine (LOXITANE) 10 MG capsule Take 3 capsules (30 mg total) by mouth 2 (two) times a day. 11/16/2023 active Ventolin HFA 108 (90 Base) MCG/ACT inhaler USE 2 PUFFS BY MOUTH EVERY 6 HOURS NEEDED FOR SHORTNESS OF BREATH 11/16/2023 active cholecalciferol (CHOLECALCIFEROL) 25 MCG (1000 UT) tablet Take 1 tablet (1,000 Units total) by mouth daily. Do not start before October 20, 2023. 11/16/2023 active famotidine (PEPCID) 20 MG tablet Take 1 tablet (20 mg total) by mouth 2 (two) times a day. 07/08/2023 active gabapentin (NEURONTIN) 100 MG capsule TAKE 2 CAPSULES (200MG) BY MOUTH DAILY 07/08/2023 active Invega Sustenna 234 MG/1.5ML Suspension Prefilled Syringe IM injection 07/08/2023 active OLANZapine zydis (ZyPREXA ZYDIS) 15 MG disintegrating tablet Take 1 tablet (15 mg total) by mouth nightly. 07/08/2023 active perphenazine (TRILAFON) 8 MG tablet TAKE 1 TABLET BY MOUTH TWICE A DAY WITH BREAKFAST AND SUPPER 07/08/2023 active gabapentin (NEURONTIN) 300 MG capsule Take 1 capsule (300 mg total) by mouth nightly. 07/08/2023 active acetaminophen (TYLENOL) 500 MG tablet Take 1 tablet (500 mg total) by mouth 4 times daily (every 6 hours) as needed for mild pain (pain). 07/08/2023 active lidocaine (LIDODERM) 5 % patch Place 1 patch on the skin every 24 hours. 04/28/2022 active ibuprofen (MOTRIN) 600 MG tablet 04/28/2022 active fluPHENAZine (PROLIXIN) 5 MG tablet Take 1 tablet (5 mg total) by mouth nightly. 04/28/2022 active benztropine (COGENTIN) 1 MG tablet Take 1 tablet (1 mg total) by mouth nightly. 04/28/2022 active clobetasoL (TEMOVATE) 0.05 % ointment Apply topically 2 (two) times a day as needed (Rash) for up to 14 days. Apply twice daily to affected area for 2 weeks on, 1 week off as needed 03/07/2023 active Spacer/Aero-Holding Chambers (AeroChamber Plus) inhaler Use with your inhaler 07/16/2022 active cholecalciferol (VITAMIN D3) 13266 units capsule Take 1 capsule (50,000 Units total) by mouth once a week. Do not start before April 21, 2022. 04/28/2022 active Olanzapine 06/09/2023 active Gabapentin (Neurontin) 100 MG Capsule 06/09/2023 completed Albuterol Sulfate (Proair Hfa 90 Mcg Inhaler) 8.5 GM Hfa.Aer.Ad 06/09/2023 completed Gabapentin (Neurontin) 300 MG Capsule 06/09/2023 completed Olanzapine (Zyprexa) 15 MG Tablet 06/09/2023 completed Pantoprazole Sodium (Protonix) 40 MG Tablet. 06/09/2023 completed Famotidine (Pepcid) 20 MG Tablet 06/09/2023 completed Ibuprofen 06/09/2023 completed Perphenazine 06/09/2023 active Pantoprazole Sodium 06/09/2023 a ctive Invega 3 mg 24 hr tablet 03/07/2023 active albuterol (PROVENTIL HFA; VENTOLIN HFA) 108 (90 Base) MCG/ACT inhaler Inhale 2 puffs See Admin Instructions. Inhale 2 puffs every 4 hours while awake for next 5 days, then 4 times a day as needed 07/17/2022 active Problems Problem Status Onset Date Problem Type Date of Resolution Source Seborrheic keratosis active EncounterDiagnosisA ct [facility] Confluent and reticulated papillomatosis (CARP) active EncounterDiagnosisAct [facility] Hyperpigmentation active EncounterDiagnosisAct [facility] Acne vulgaris active EncounterDiagnosisAct [facility] Chest pain, unspecified type active EncounterDiagnosisAct HH CCT Atypical chest pain active ProblemAct [facility] Subacute pericarditis active ProblemAct [facility] Schizophrenia active ProblemAct [facility] Immunizations Vaccine Date Source Lot Number Status Hib 08/20/1993 [facility] completed OPV 11/18/1993 [facility] completed OPV 09/20/1996 [facility] completed Hep B, Unspecified 1992 [facility] comple amadeo Meningococcal MCV4, Unspecified 11/11/2006 [facility] completed OPV 1992 [facility] completed Hep A, 2 Dose 10/11/2008 [facility] completed DTaP, Unspecified 1992 [facility] complet ed OPV 1992 [facility] completed DTaP, Unspecified 09/20/1996 [facility] complet ed Varicella 10/11/2008 [facility] completed DTaP, Unspecified 11/18/1993 [facility] complet ed Tdap 05/03/2009 [facility] completed Varicella 09/20/1996 [facility] completed Hep A, 2 Dose 05/03/2009 [facility] completed DTaP, Unspecified 1992 [facility] complet ed MMR 08/20/1993 [facility] completed DTaP, Unspecified 1992 [facility] complet ed Hep B, Unspecified 03/07/1993 [facility] comple amadeo Hib 1992 [facility] completed Hib 1992 [facility] completed Hib 1992 [facility] completed Hep B, Unspecified 1992 [facility] comple amadeo Influenza Inactivated/Split Preservative Free IM 04/14/2022 [facility] completed
[2024-03-29 22:30] VITALS: BP 134/74; PULSE 76; RESP 18; TEMP 36.6; O2SAT 99
[2024-03-29 22:31] VITALS: BMI 44.1
[2024-03-29 23:01] LABS: Alanine Aminotransferase 27 U/L (0-40); Albumin Level 4.3 g/dL (3.5-5.0); Alkaline Phosphatase 68 U/L (39-117); Anion Gap 10 (12-20); Aspartate Amino Transferase 33 U/L (5-37); Bilirubin Total 0.2 mg/dL (0.0-1.0); Blood Urea Nitrogen 12 mg/dL (9-16); Calcium 9.2 mg/dL (8.4-10.2); Carbon Dioxide 25 mmol/L (22-29); Chloride 109 mmol/L (96-108); Creatinine Clr Calc Pharmacy 156.4; Estimated Glomerular Filt Rate > 60; Glucose Random 68 mg/dL (60-115); Potassium 3.9 mmol/L (3.3-5.1); Sodium 140 mmol/L (135-145); Total Protein 8.1 g/dL (6.5-8.0)
--- NOTE | 2024-03-30 02:43 | PC.ADMIT ---
Patient is a 33 year old male, admitted to on 03/29/24 at 2230 on a CV from [facility] due to increase in command auditory and visual hallucinations. Patient has a history of multiple inpatient hospitalizations, last being [facility] (discharged on 03/25/23). Patient presented to [facility] complaining of chest pain and feeling as though his body is shutting down, reports feeling paranoid and unsafe in the community. He is also reporting command AH and VH ?aggressive and disturbing voices.? Patient denies smoking/drinking/drug use, Utox negative. Patient has been med compliant since discharge from [facility].? Upon admission to , patient is cooperative with changeover with assistance of male MHC. Skin is clean, dry and intact. Patient cooperative with the admission process, but having difficulty concentrating an answering questions due to voices. He contracts for safety. Denies SI/HI/VH. Patient signed appropriate ANTHONY?s. Declined flu shot. Patient requested 3 day notice at conclusion of admission.
--- NOTE | 2024-03-30 05:49 | P.CONHOSP_ITS ---
History of Present Illness Data of Consult Service Date: 03/30/24 Requesting physician: Billy Pinon Primary Care Provider: Nonstaff Physician HPI Reason for consult: medical consult Patient is a 33-year-old male with a past medical history significant for hypertension and schizophrenia, admitted to adult Psychiatry M3 from [facility] for auditory and visual hallucinations, consulted for medical clearance. He has no general medical complaints currently including headache, shortness of breath, chest pain, abdominal pain, urinary symptoms including dysuria frequency or urgency, numbness or tingling. Metformin is in his medication list however the patient denies diabetes. Review of Systems 2 Constitutional: Constitutional: Denies body ache(s), Denies chills, Denies fatigue and Denies headache(s) Eyes: Eyes: Denies change in vision and Denies photophobia ENT: Denies headache(s), Denies nasal congestion, Denies nasal discharge and Denies sore throat Cardiovascular: Cardiovascular: Denies chest pain, Denies rapid heart rate, Denies leg edema, Denies lightheadedness and Denies dyspnea Respiratory: Respiratory: Denies chest congestion, Denies cough, Denies dyspnea and Denies wheezing Gastrointestinal: Gastrointestinal: Denies constipation, Denies diarrhea, Denies nausea and Denies vomiting Genitourinary: Genitourinary: Denies dysuria, Denies urinary frequency and Denies urinary urgency Musculoskeletal: Musculoskeletal: Denies myalgias and Denies arthralgias Integumentary/Breasts: Skin/Breast: Denies rash Neurologic: Denies confusion and Denies headache(s) Psychiatric: Psychiatric: Reports as per HPI and Denies confusion Endocrine: Endocrine: Denies fatigue Hematologic/Lymphatic: Hematologic/Lymphatic: Denies easy bleeding and Denies easy bruising Allergic/Immunologic: Allergic/Immunologic: Denies wheezing [facility] Medical History (Updated 03/30/24 @ 05:52 by Blossom Honeycutt PA-C) HTN (hypertension) Functional capacity: independent ambulation Social History Household Members: Family Housing: House Do you presently have visiting nurse or other home services: No Patient Tobacco Use Status: Never used Tobacco Use of substances other than those prescribed or required for medical reasons: No Have you been hit, kicked, punched, or otherwise hurt by someone within the past year? If so, by whom?: No Do you feel safe in your current relationship?: No Current Relationship Is there a partner from a previous relationship who is making you feel unsafe now?: No Are you made to feel afraid or neglected: No Advance Directives: No Advance Directives Information Provided: No Recently lost weight without trying: No Poor oral hygiene: No Narrative: No smoking, alcohol or drug use Meds Allergies Allergy/AdvReac Type Severity Reaction Status Date / Time No Known Allergies Allergy Verified 03/29/24 22:17 Active Medications: Current Medications Acetaminophen (Acetaminophen 325 Mg Tablet) 650 mg PO Q6H PRN PRN Reason: Headache/Pain Mild Scale (1-3) Al Hydroxide/Mg Hydroxide (Magnesium Hydrox/Alum Hydrox 30 Ml Oral.Susp) 30 ml PO Q6H PRN PRN Reason: Heartburn/Nausea Benztropine Mesylate (Benztropine Mesylate 0.5 Mg Tablet) 0.5 mg PO BID ROSA Haloperidol (Haloperidol 5 Mg Tablet) 10 mg PO BID PRN PRN Reason: Psychosis Hydralazine HCl (Hydralazine Hcl 25 Mg Tablet) 25 mg PO BID ROSA; Protocol Hydroxyzine HCl (Hydroxyzine Hcl 25 Mg Tablet) 25 mg PO Q6H PRN PRN Reason: Anxiety Lurasidone HCl (Lurasidone Hcl 40 Mg Tablet) 120 mg PO 1700 ROAS Magnesium Hydroxide (Milk Of Magnesia 30 Ml Oral.Susp) 30 ml PO DAILY PRN PRN Reason: Constipation Melatonin (Melatonin 3 Mg Tablet) 6 mg PO BEDTIME PRN PRN Reason: insomnia Metformin HCl (Metformin Hcl 500 Mg Tablet) 500 mg PO DAILY ROSA Nicotine (Nicotine 21 Mg Patch.Td24) 21 mg TRANSDERMA DAILY ROSA Nicotine Polacrilex (Nicotine Polacrilex 2 Mg Gum) 4 mg BUCCAL Q2H PRN PRN Reason: Nicotine Cravings Olanzapine (Olanzapine 5 Mg Tablet) 5 mg PO Q4H PRN PRN Reason: agitation Trazodone HCl (Trazodone Hcl 50 Mg Tablet) 50 mg PO BEDTIME MRX1 PRN PRN Reason: Insomnia Home Medications ?Medication ?Instructions ?Recorded ?Confirmed ?Last Taken ?Type benztropine 1 mg tablet 0.5 mg PO BID 03/29/24 03/29/24 Unknown History haloperidol 5 mg tablet 10 mg PO BID PRN Psychosis 03/29/24 03/29/24 Unknown History hydralazine 25 mg tablet 25 mg PO BID 03/29/24 03/29/24 Unknown History lurasidone 120 mg tablet 120 mg PO DAILY 03/29/24 03/29/24 Unknown History melatonin 3 mg tablet 6 mg PO BEDTIME PRN insomnia 03/29/24 03/29/24 Unknown History metformin 500 mg tablet 500 mg PO DAILY 03/29/24 03/29/24 Unknown History trazodone 50 mg tablet 50 mg PO BEDTIME 03/29/24 03/29/24 Unknown History Physical Exam 2 Vital Signs and Narrative: Vital Signs: Last Vital Signs Temp 97.8 F 03/29/24 22:30 Pulse 76 03/29/24 22:30 Resp 18 03/29/24 22:30 BP 134/74 03/29/24 22:30 Pulse Ox 99 03/29/24 22:30 O2 Del Method Room Air 03/29/24 22:30 BMI result Body Mass Index 44.1 General: AOx3, no acute distress Resp: CTA bilaterally CVS: S1, S2, RRR GI: +BS, NT, no distention Skin: Warm, dry Neuro: Cranial nerves II-XII grossly intact bilaterally. Motor grossly intact bilaterally. 5/5 strength upper and lower extremities. Extremities: No LE edema Psych: Appropriate affect Const: General: No confusion Orientation/consciousness: No confusion Eyes: Direct Ophthalmoscopy: No photophobia Neuro: General: No confusion Results Labs 03/29/24 22:43 Labs: Laboratory Results - last 24 hr 03/29/24 22:43 Anion Gap 10 L Estim Creat Clear Calc 156.4 Estimated GFR > 60 Random Glucose 68 Calcium 9.2 Total Bilirubin 0.2 AST 33 ALT 27 Alkaline Phosphatase 68 Total Protein 8.1 H Albumin 4.3 Assessment and Plan (1) Medical clearance for psychiatric admission: Status: Acute Plan Patient is a 33-year-old male with a past medical history significant for hypertension and schizophrenia, admitted to adult Psychiatry M3 from [facility] for auditory and visual hallucinations, consulted for medical clearance. Patient is medically appropriate for the psychiatric floor, no current concerns. Mood disorder - plan per psych HTN - continue hydralazine ?DM - pt on metformin but denies hx of DM - check A1C - continue metformin for now Thank you for allowing me to participate in the pt's care. Signing off for now. Please contact the medical team if any questions or concerns.
[2024-03-30 08:00] VITALS: BP 115/55; PULSE 97; RESP 16; TEMP 36.9; O2SAT 99
[2024-03-30 08:51] VITALS: BP 115/55
[2024-03-30] MEDS: hydrALAZINE HCl 25 MG TABLET PO ×2 (08:51→20:34)
[2024-03-30] MEDS: Benztropine Mesylate 0.5 MG TABLET PO ×2 (08:51→20:34)
[2024-03-30] MEDS: metFORMIN HCl 500 MG TABLET PO (08:51)
[2024-03-30 10:26] LABS: Estimated Average Glucose 117 mg/dL; Hemoglobin A1C 133.4596 umol/L; Hemoglobin A1c % 5.7 % (<6.0); Total Hemoglobin (HGBA1C) 3481.5648 umol/L
[2024-03-30] MEDS: Cholecalciferol (Vitamin D3) 10 MCG TABLET PO (12:08)
--- NOTE | 2024-03-30 13:12 | P.HPPS_ITS ---
HPI Date of Service: 03/30/24 Chief Complaint: Unspecified schizophrenia HPI Narrative: per [facility] sosaal, pt self-presented c/o CP and feeling like my body is shutting down, as well as CAH and VH. reports feeling paranoid and no longer safe in the community. CAH to do bad things. on interview with MD on unit, pt calm and cooperative. pleasant, Hx, Sx, and medications reviewed. pt endorses Sx as above, states he has been compliant with medications since discharge from [facility] 03/25/24, and agrees to increase latuda from his current 120 mg daily at 5 pm to the FDA max recommended dose of 160 mg daily. plan to otherwise continue current mgmt. Past Psychiatric History: hosps: 12-15. MRE at [facility], discharged 03/25/24. SA: denies SIB: denies HIB: denies outpt: CHR in [place]. therapy and psychiatry. Medical Evaluation Reviewed: Hospitalist Todd Pending [facility] Medical History (Updated 03/30/24 @ 16:00 by Billy Pinon MD) HTN (hypertension) Narrative: GERD atopic dermatitis Family History: denies Social History: lives with mother, sibs, and niece and nephew in a home owned by his mother. 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 gets SSI now. 3 years of college, general studies. Substance History: denies use of all substances including nicotine, alcohol, and cannabis. Trauma History: denies Diagnostics Vital Signs (24Hr): Vital Signs - 24 hr 03/29/24 22:30 03/30/24 08:00 03/30/24 08:51 Temperature 97.8 F 98.5 F Pulse Rate 76 97 Respiratory Rate 18 16 Blood Pressure 134/74 115/55 L 115/55 L Pulse Oximetry 99 99 Oxygen Delivery Method Room Air Room Air BMI result Body Mass Index 44.1 Labs 03/29/24 22:43 Labs: Laboratory Results - last 48 hr 03/29/24 03/30/24 22:43 09:51 Sodium 140 Potassium 3.9 Chloride 109 H Carbon Dioxide 25 Anion Gap 10 L BUN 12 Creatinine 1.14 Estim Creat Clear Calc 156.4 Estimated GFR > 60 Random Glucose 68 Estimat Average Glucose 117 Hemoglobin A1c % 5.7 Calcium 9.2 Total Bilirubin 0.2 AST 33 ALT 27 Alkaline Phosphatase 68 Total Protein 8.1 H Albumin 4.3 Meds/Allergies Meds Home Medications ?Medication ?Instructions ?Recorded ?Confirmed ?Type benztropine 1 mg tablet 0.5 mg PO BID 03/29/24 03/29/24 History haloperidol 5 mg tablet 10 mg PO BID PRN Psychosis 03/29/24 03/29/24 History hydralazine 25 mg tablet 25 mg PO BID 03/29/24 03/29/24 History lurasidone 120 mg tablet 120 mg PO DAILY 03/29/24 03/29/24 History melatonin 3 mg tablet 6 mg PO BEDTIME PRN insomnia 03/29/24 03/29/24 History metformin 500 mg tablet 500 mg PO DAILY 03/29/24 03/29/24 History trazodone 50 mg tablet 50 mg PO BEDTIME 03/29/24 03/29/24 History Allergies Allergies Allergy/AdvReac Type Severity Reaction Status Date / Time No Known Allergies Allergy Verified 03/29/24 22:17 Mental Status Exam Mental Status Exam Narrative: adequately dressed and groomed. hospital [facility]. cooperative. no PMA/PMR. speech nml rate. decr amount. nml loudness. incr latency. thoughts linear and logical without evidence of paranoia or delusions. affect constricted, normo-intense, non-labile. mood all right. denies SI/SIBI/HI. Assessment & Plan Assessment & Plan (1) Schizophrenia: Status: Acute Code(s): F20.9 - Schizophrenia, unspecified Plan increase latuda from 120 mg daily at 5 pm to 160 mg daily at 5 pm. otherwise continue previous regimen. Patient educated on: medication risk/benefits Reason for continued inpatient stay Substantial Risk for: inability to function Statement Statement: I have reviewed the history and physical and performed a pertinent examination on my patient. No changes have occurred unless specified. If the History and Physical was not performed prior to admission, the Hospitalist's service will be consulted for completing the admission physical. Time Spent With Patient Time: Total time managing care of this patient today __55__ minutes.
[2024-03-30] MEDS: Lurasidone HCl 80 MG TABLET 160 MG PO (17:48)
[2024-03-30 20:00] VITALS: BP 122/82; PULSE 88; RESP 16; TEMP 36.4; O2SAT 98
[2024-03-30] MEDS: traZODone HCL 50 MG TABLET PO (20:34)
[2024-03-31 07:00] VITALS: BMI 43.3
[2024-03-31 08:00] VITALS: BP 127/74; PULSE 85; RESP 16; TEMP 36.8; O2SAT 98
[2024-03-31 08:32] LABS: Cholesterol 176 mg/dL (<200); HDL Cholesterol 38 mg/dL (>40); LDL Cholesterol Calculated 125 mg/dL (<100); Triglycerides 65 mg/dL (<150)
[2024-03-31 09:28] VITALS: BP 127/74
[2024-03-31] MEDS: Benztropine Mesylate 0.5 MG TABLET PO ×2 (09:28→20:19)
[2024-03-31] MEDS: Cholecalciferol (Vitamin D3) 10 MCG TABLET PO (09:28)
[2024-03-31] MEDS: metFORMIN HCl 500 MG TABLET PO (09:28)
[2024-03-31] MEDS: hydrALAZINE HCl 25 MG TABLET PO ×2 (09:28→20:19)
--- NOTE | 2024-03-31 11:38 | P.DS_ITS ---
DS: Providers Provider Date of Service: 03/31/24 Date of admission: 03/29/24 22:03 Date of discharge: 04/01/24 Primary care physician: Nonstaff Physician Consults: 03/29/24 22:18 Consult to Hospitalist Routine Comment: Consulting Provider: [facility] Hospitalists Reason For Exam: new admit H&P DS: Diagnosis Discharge Diagnosis (1) Schizophrenia: Status: Acute DS: Medications Discharge Medications Home Medications: Home Medications ?Medication ?Instructions ?Recorded ?Confirmed benztropine 1 mg tablet 0.5 mg PO BID 03/29/24 03/29/24 hydralazine 25 mg tablet 25 mg PO BID 03/29/24 03/29/24 melatonin 3 mg tablet 6 mg PO BEDTIME PRN insomnia 03/29/24 03/29/24 metformin 500 mg tablet 500 mg PO DAILY 03/29/24 03/29/24 trazodone 50 mg tablet 50 mg PO BEDTIME 03/29/24 03/29/24 Previous Rx's ?Medication ?Instructions ?Recorded cholecalciferol (vitamin D3) 10 10 mcg PO DAILY #0 tabs 03/31/24 mcg (400 unit) tablet (Vitamin D3) haloperidol 1 mg tablet 2 mg (2 x 1 mg) PO BID PRN 03/31/24 Psychosis #0 tabs lurasidone 80 mg tablet (Latuda) 160 mg (2 x 80 mg) PO 1700 30 days 03/31/24 #60 tabs Mental Status Exam Mental Status Exam Narrative: adequately dressed and groomed. hospital [facility]. cooperative. no PMA/PMR. speech nml rate. decr amount. nml loudness. nml latency. thoughts linear and logical without evidence of paranoia or delusions. affect constricted, normo- intense, non-labile. mood all right. denies SI/SIBI/HI/VH. endorses AH, non-command. Data Data Completed and Pending Completed studies during hospitalization [Text1]: 03/29/24 03/30/24 03/31/24 22:43 09:51 07:55 Sodium 140 Potassium 3.9 Chloride 109 H Carbon Dioxide 25 Anion Gap 10 L BUN 12 Creatinine 1.14 Estim Creat Clear Calc 156.4 Estimated GFR > 60 Random Glucose 68 Estimat Average Glucose 117 Hemoglobin A1c % 5.7 Calcium 9.2 Total Bilirubin 0.2 AST 33 ALT 27 Alkaline Phosphatase 68 Total Protein 8.1 H Albumin 4.3 Triglycerides 65 Cholesterol 176 LDL Cholesterol, Calc 125 H HDL Cholesterol 38 L DS: Summary Time Spent with Patient Time attestation: Total time managing care of this patient today ____ minutes. Discharge Plan Discharge Anticipated Discharge Date/Time: 04/01/24 11:00 Patient Disposition: Home, Self-Care Discharge Diagnosis: Schizophrenia Referrals: [facility] [Provider Group] - 1 Week (03-31-24 [facility] has been added to patients chart. Please call [phone] to schedule your follow up appt.) Discharge Medications: New haloperidol 1 mg Tablet 2 mg PO BID PRN (Reason: Psychosis) Qty: 0 0RF cholecalciferol (vitamin D3) [Vitamin D3] 10 mcg (400 unit) Tablet 10 mcg PO DAILY Qty: 0 0RF lurasidone [Latuda] 80 mg Tablet 160 mg PO 1700 30 Days Qty: 60 0RF Continued benztropine 1 mg tablet 0.5 mg PO BID metformin 500 mg tablet 500 mg PO DAILY trazodone 50 mg tablet 50 mg PO BEDTIME hydralazine 25 mg tablet 25 mg PO BID melatonin 3 mg tablet 6 mg PO BEDTIME PRN (Reason: insomnia) Discontinued haloperidol 5 mg tablet 10 mg PO BID PRN (Reason: Psychosis) lurasidone 120 mg tablet 120 mg PO DAILY Discharge Orders: Discharge Order (Routine); Ordered 04/01/24 Ordered By: Billy Pinon Diet: Advance to usual diet Activity on Discharge: As tolerated Stand Alone Forms: Patient Portal Discharge page Print Language: Tajik Care Plan Goals: remain safe and stable in the outpatient treatment setting Health Concerns: none Plan of Treatment: take medications as prescribed, attend appointments as scheduled Assessment: not at imminent risk of harm to self or others
--- NOTE | 2024-03-31 14:23 | HO.PSYCHPN ---
Subjective Subjective Date of Service: 03/31/24 Reason For Visit: Unspecified schizophrenia Interim History: calm, cooperative. not sure if he wants to leave tomorrow. Sx improved but not resolved. asking for vitamin D level to be checked. has aftercare. per staff, 3-day up tomorrow. denies dep/anx. +AH, but no longer CAH. isolative. slept 8 hours. Mental Status Exam Mental Status Exam Narrative: adequately dressed and groomed. hospital [facility]. cooperative. no PMA/PMR. speech nml rate. decr amount. nml loudness. nml latency. thoughts linear and logical without evidence of paranoia or delusions. affect constricted, normo-intense, non-labile. mood all right. denies SI/SIBI/HI/VH. endorses AH, non-command. Diagnostics Vital Signs (24Hr): Vital Signs - 24 hr 03/30/24 20:00 03/31/24 08:00 03/31/24 09:28 Temperature 97.6 F 98.2 F Pulse Rate 88 85 Respiratory Rate 16 16 Blood Pressure 122/82 127/74 127/74 Pulse Oximetry 98 98 Oxygen Delivery Method Room Air BMI result Body Mass Index 44.1 Labs 03/29/24 22:43 Labs: Laboratory Results - last 48 hr 03/29/24 03/30/24 03/31/24 22:43 09:51 07:55 Sodium 140 Potassium 3.9 Chloride 109 H Carbon Dioxide 25 Anion Gap 10 L BUN 12 Creatinine 1.14 Estim Creat Clear Calc 156.4 Estimated GFR > 60 Random Glucose 68 Estimat Average Glucose 117 Hemoglobin A1c % 5.7 Calcium 9.2 Total Bilirubin 0.2 AST 33 ALT 27 Alkaline Phosphatase 68 Total Protein 8.1 H Albumin 4.3 Triglycerides 65 Cholesterol 176 LDL Cholesterol, Calc 125 H HDL Cholesterol 38 L Medications Medications Current Medications Acetaminophen (Acetaminophen 325 Mg Tablet) 650 mg PO Q6H PRN PRN Reason: Headache/Pain Mild Scale (1-3) Al Hydroxide/Mg Hydroxide (Magnesium Hydrox/Alum Hydrox 30 Ml Oral.Susp) 30 ml PO Q6H PRN PRN Reason: Heartburn/Nausea Benztropine Mesylate (Benztropine Mesylate 0.5 Mg Tablet) 0.5 mg PO BID ROSA Last Admin: 03/31/24 09:28 Dose: 0.5 mg Haloperidol (Haloperidol 1 Mg Tablet) 2 mg PO BID PRN PRN Reason: Psychosis Hydralazine HCl (Hydralazine Hcl 25 Mg Tablet) 25 mg PO BID [facility]; Protocol Last Admin: 03/31/24 09:28 Dose: 25 mg Hydroxyzine HCl (Hydroxyzine Hcl 25 Mg Tablet) 25 mg PO Q6H PRN PRN Reason: Anxiety Lurasidone HCl (Lurasidone Hcl 80 Mg Tablet) 160 mg PO 1700 [facility] Last Admin: 03/30/24 17:48 Dose: 160 mg Magnesium Hydroxide (Milk Of Magnesia 30 Ml Oral.Susp) 30 ml PO DAILY PRN PRN Reason: Constipation Melatonin (Melatonin 3 Mg Tablet) 6 mg PO BEDTIME PRN PRN Reason: insomnia Metformin HCl (Metformin Hcl 500 Mg Tablet) 500 mg PO DAILY [facility] Last Admin: 03/31/24 09:28 Dose: 500 mg Olanzapine (Olanzapine 5 Mg Tablet) 5 mg PO Q4H PRN PRN Reason: agitation Trazodone HCl (Trazodone Hcl 50 Mg Tablet) 50 mg PO BEDTIME PRN PRN Reason: Insomnia Trazodone HCl (Trazodone Hcl 50 Mg Tablet) 50 mg PO BEDTIME [facility] Last Admin: 03/30/24 20:34 Dose: 50 mg Vitamin D (Cholecalciferol (Vitamin D3) 10 Mcg Tablet) 10 mcg PO DAILY [facility] Last Admin: 03/31/24 09:28 Dose: 10 mcg Allergies Allergies Allergy/AdvReac Type Severity Reaction Status Date / Time No Known Allergies Allergy Verified 03/29/24 22:17 Assessment & Plan Assessment & Plan (1) Schizophrenia: Status: Acute Code(s): F20.9 - Schizophrenia, unspecified Plan 03/30: increase latuda from 120 mg daily at 5 pm to 160 mg daily at 5 pm. otherwise continue previous regimen. 03/31: AH improved, no longer CAH. continue current mgmt. 3-day up tomorrow, pt unsure whether he will stay or go. meds reviewed, reconciled, prescribed. Reason for continued inpatient stay Substantial Risk for: inability to function and rapid decompensation Time Spent With Patient Time: Total time managing care of this patient today __35__ minutes.
[2024-03-31] MEDS: Lurasidone HCl 80 MG TABLET 160 MG PO (17:28)
[2024-03-31 20:00] VITALS: BP 138/88; PULSE 100; RESP 16; TEMP 36.3; O2SAT 95
[2024-03-31] MEDS: traZODone HCL 50 MG TABLET PO (20:19)
[2024-04-01 07:15] VITALS: BP 112/53; PULSE 90; RESP 16; TEMP 36.9; O2SAT 98
[2024-04-01] MEDS: Benztropine Mesylate 0.5 MG TABLET PO ×2 (09:09→20:43)
[2024-04-01 09:10] VITALS: BP 126/58
[2024-04-01] MEDS: metFORMIN HCl 500 MG TABLET PO (09:10)
[2024-04-01] MEDS: hydrALAZINE HCl 25 MG TABLET PO ×2 (09:10→20:43)
[2024-04-01] MEDS: Cholecalciferol (Vitamin D3) 10 MCG TABLET PO (09:10)
--- NOTE | 2024-04-01 14:57 | P.PNPSI_ITS ---
Subjective Subjective Date of Service: 04/01/24 Reason For Visit: Unspecified schizophrenia Interim History: retracted 3-day notice, wants to stay for the weekend. no requests or complaints, feeling well on current regimen. per staff, retracted 3-day notice. isolative. no AVH. slept 8 hours. Mental Status Exam Mental Status Exam Narrative: adequately dressed and groomed. hospital clothes. cooperative. no PMA/PMR. speech nml rate. decr amount. nml loudness. nml latency. thoughts linear and logical without evidence of paranoia or delusions. affect constricted, normo- intense, non-labile. mood all right. no SI/SIBI/HI/AVH expressed. Diagnostics Vital Signs (24Hr): Vital Signs - 24 hr 03/31/24 20:00 04/01/24 07:15 04/01/24 09:10 Temperature 97.4 F 98.5 F Pulse Rate 100 90 Respiratory Rate 16 16 Blood Pressure 138/88 112/53 L 126/58 L Pulse Oximetry 95 98 Oxygen Delivery Method Room Air Room Air BMI result Body Mass Index 43.3 Labs 03/29/24 22:43 Labs: Laboratory Results - last 48 hr 03/31/24 07:55 Triglycerides 65 Cholesterol 176 LDL Cholesterol, Calc 125 H HDL Cholesterol 38 L Medications Medications Current Medications Acetaminophen (Acetaminophen 325 Mg Tablet) 650 mg PO Q6H PRN PRN Reason: Headache/Pain Mild Scale (1-3) Al Hydroxide/Mg Hydroxide (Magnesium Hydrox/Alum Hydrox 30 Ml Oral.Susp) 30 ml PO Q6H PRN PRN Reason: Heartburn/Nausea Benztropine Mesylate (Benztropine Mesylate 0.5 Mg Tablet) 0.5 mg PO BID [facility] Last Admin: 04/01/24 09:09 Dose: 0.5 mg Haloperidol (Haloperidol 1 Mg Tablet) 2 mg PO BID PRN PRN Reason: Psychosis Hydralazine HCl (Hydralazine Hcl 25 Mg Tablet) 25 mg PO BID [facility]; Protocol Last Admin: 04/01/24 09:10 Dose: 25 mg Hydroxyzine HCl (Hydroxyzine Hcl 25 Mg Tablet) 25 mg PO Q6H PRN PRN Reason: Anxiety Lurasidone HCl (Lurasidone Hcl 80 Mg Tablet) 160 mg PO 1700 [facility] Last Admin: 03/31/24 17:28 Dose: 160 mg Magnesium Hydroxide (Milk Of Magnesia 30 Ml Oral.Susp) 30 ml PO DAILY PRN PRN Reason: Constipation Melatonin (Melatonin 3 Mg Tablet) 6 mg PO BEDTIME PRN PRN Reason: insomnia Metformin HCl (Metformin Hcl 500 Mg Tablet) 500 mg PO DAILY [facility] Last Admin: 04/01/24 09:10 Dose: 500 mg Olanzapine (Olanzapine 5 Mg Tablet) 5 mg PO Q4H PRN PRN Reason: agitation Trazodone HCl (Trazodone Hcl 50 Mg Tablet) 50 mg PO BEDTIME PRN PRN Reason: Insomnia Trazodone HCl (Trazodone Hcl 50 Mg Tablet) 50 mg PO BEDTIME [facility] Last Admin: 03/31/24 20:19 Dose: 50 mg Vitamin D (Cholecalciferol (Vitamin D3) 10 Mcg Tablet) 10 mcg PO DAILY [facility] Last Admin: 04/01/24 09:10 Dose: 10 mcg Allergies Allergies Allergy/AdvReac Type Severity Reaction Status Date / Time No Known Allergies Allergy Verified 03/29/24 22:17 Assessment & Plan Assessment & Plan (1) Schizophrenia: Status: Acute Code(s): F20.9 - Schizophrenia, unspecified Plan 03/30: increase latuda from 120 mg daily at 5 pm to 160 mg daily at 5 pm. otherwise continue previous regimen. 03/31: AH improved, no longer CAH. continue current mgmt. 3-day up tomorrow, pt unsure whether he will stay or go. meds reviewed, reconciled, prescribed. 04/01: retracted 3-day notice. feels he is headed in the right direction and would like to continue present regimen. Reason for continued inpatient stay Substantial Risk for: rapid decompensation Time Spent With Patient Time: Total time managing care of this patient today __25__ minutes.
[2024-04-01] MEDS: Lurasidone HCl 80 MG TABLET 160 MG PO (17:28)
[2024-04-01 20:00] VITALS: BP 124/84; PULSE 85; RESP 18; TEMP 36.4; O2SAT 98
[2024-04-01] MEDS: traZODone HCL 50 MG TABLET PO (20:43)
[2024-04-02 07:35] VITALS: BP 132/86; PULSE 73; RESP 16; TEMP 37.1; O2SAT 96
[2024-04-02 08:30] VITALS: BP 123/80; PULSE 89
[2024-04-02] MEDS: Benztropine Mesylate 0.5 MG TABLET PO ×2 (09:06→20:14)
[2024-04-02] MEDS: hydrALAZINE HCl 25 MG TABLET PO ×2 (09:07→20:14)
[2024-04-02] MEDS: metFORMIN HCl 500 MG TABLET PO (09:07)
[2024-04-02] MEDS: Cholecalciferol (Vitamin D3) 10 MCG TABLET PO (09:07)
--- NOTE | 2024-04-02 16:17 | HO.PSYCHPN ---
Subjective Subjective Date of Service: 04/02/24 Reason For Visit: Unspecified schizophrenia Subjective Notes: Conditional Voluntary Interim History: Pt denies any concerns. He denies SI/HI. he reports sleeping well. He denies VH/AH. No overt delusional content noted or reported. Mostly in room. Medication Compliance: Yes Review of Systems Constitutional: Denies body ache(s), Denies chills, Denies fatigue and Denies headache(s) Eyes: Denies change in vision and Denies photophobia Denies headache(s), Denies nasal congestion, Denies nasal discharge and Denies sore throat Cardiovascular: Denies chest pain, Denies rapid heart rate, Denies leg edema, Denies lightheadedness and Denies dyspnea Respiratory: Denies chest congestion, Denies cough, Denies dyspnea and Denies wheezing Gastrointestinal: Denies constipation, Denies diarrhea, Denies nausea and Denies vomiting Genitourinary: Denies dysuria, Denies urinary frequency and Denies urinary urgency Musculoskeletal: Denies myalgias and Denies arthralgias Skin/Breast: Denies rash Denies confusion and Denies headache(s) Psychiatric: Reports as per HPI and Denies confusion Endocrine: Denies fatigue Hematologic/Lymphatic: Denies easy bleeding and Denies easy bruising Allergic/Immunologic: Denies wheezing Mental Status Exam Mental Status Exam Narrative: adequately dressed and groomed. hospital clothes. cooperative. no PMA/PMR. speech nml rate. decr amount. nml loudness. nml latency. thoughts linear and logical without evidence of paranoia or delusions. affect constricted, normo-intense, non-labile. mood all right. no SI/SIBI/HI/AVH expressed. Diagnostics Vital Signs (24Hr): Vital Signs - 24 hr 04/01/24 20:00 04/02/24 07:35 04/02/24 08:30 Temperature 97.6 F 98.8 F Pulse Rate 85 73 89 Respiratory Rate 18 16 Blood Pressure 124/84 132/86 123/80 Pulse Oximetry 98 96 Oxygen Delivery Method Room Air Room Air BMI result Body Mass Index 43.3 Labs 03/29/24 22:43 Medications Medications Current Medications Acetaminophen (Acetaminophen 325 Mg Tablet) 650 mg PO Q6H PRN PRN Reason: Headache/Pain Mild Scale (1-3) Al Hydroxide/Mg Hydroxide (Magnesium Hydrox/Alum Hydrox 30 Ml Oral.Susp) 30 ml PO Q6H PRN PRN Reason: Heartburn/Nausea Benztropine Mesylate (Benztropine Mesylate 0.5 Mg Tablet) 0.5 mg PO BID [facility] Last Admin: 04/02/24 09:06 Dose: 0.5 mg Haloperidol (Haloperidol 1 Mg Tablet) 2 mg PO BID PRN PRN Reason: Psychosis Hydralazine HCl (Hydralazine Hcl 25 Mg Tablet) 25 mg PO BID [facility]; Protocol Last Admin: 04/02/24 09:07 Dose: 25 mg Hydroxyzine HCl (Hydroxyzine Hcl 25 Mg Tablet) 25 mg PO Q6H PRN PRN Reason: Anxiety Lurasidone HCl (Lurasidone Hcl 80 Mg Tablet) 160 mg PO 1700 [facility] Last Admin: 04/01/24 17:28 Dose: 160 mg Magnesium Hydroxide (Milk Of Magnesia 30 Ml Oral.Susp) 30 ml PO DAILY PRN PRN Reason: Constipation Melatonin (Melatonin 3 Mg Tablet) 6 mg PO BEDTIME PRN PRN Reason: insomnia Metformin HCl (Metformin Hcl 500 Mg Tablet) 500 mg PO DAILY [facility] Last Admin: 04/02/24 09:07 Dose: 500 mg Olanzapine (Olanzapine 5 Mg Tablet) 5 mg PO Q4H PRN PRN Reason: agitation Trazodone HCl (Trazodone Hcl 50 Mg Tablet) 50 mg PO BEDTIME PRN PRN Reason: Insomnia Trazodone HCl (Trazodone Hcl 50 Mg Tablet) 50 mg PO BEDTIME [facility] Last Admin: 04/01/24 20:43 Dose: 50 mg Vitamin D (Cholecalciferol (Vitamin D3) 10 Mcg Tablet) 10 mcg PO DAILY [facility] Last Admin: 04/02/24 09:07 Dose: 10 mcg Allergies Allergies Allergy/AdvReac Type Severity Reaction Status Date / Time No Known Allergies Allergy Verified 03/29/24 22:17 Assessment & Plan Assessment & Plan (1) Schizophrenia: Status: Acute Code(s): F20.9 - Schizophrenia, unspecified Plan 03/30: increase latuda from 120 mg daily at 5 pm to 160 mg daily at 5 pm. otherwise continue previous regimen. 03/31: AH improved, no longer CAH. continue current mgmt. 3-day up tomorrow, pt unsure whether he will stay or go. meds reviewed, reconciled, prescribed. 04/01: retracted 3-day notice. feels he is headed in the right direction and would like to continue present regimen. 04/02 continue tx. Reason for continued inpatient stay Substantial Risk for: inability to function Time Spent With Patient Time: Total time managing care of this patient today ____ minutes.
[2024-04-02] MEDS: Lurasidone HCl 80 MG TABLET 160 MG PO (17:57)
[2024-04-02 20:00] VITALS: BP 131/67; PULSE 79; RESP 16; TEMP 36.9; O2SAT 96
[2024-04-02] MEDS: traZODone HCL 50 MG TABLET PO (20:14)
[2024-04-03 09:16] VITALS: BP 124/67; PULSE 86; RESP 14; TEMP 36.9; O2SAT 97
[2024-04-03] MEDS: metFORMIN HCl 500 MG TABLET PO (09:16)
[2024-04-03] MEDS: hydrALAZINE HCl 25 MG TABLET PO ×2 (09:17→20:06)
[2024-04-03] MEDS: Benztropine Mesylate 0.5 MG TABLET PO ×2 (09:17→20:07)
[2024-04-03] MEDS: Cholecalciferol (Vitamin D3) 10 MCG TABLET PO (09:17)
--- NOTE | 2024-04-03 13:11 | HO.PSYCHPN ---
Subjective Subjective Date of Service: 04/03/24 Reason For Visit: Unspecified schizophrenia Interim History: Pt denies any concerns. He denies SI/HI. he reports sleeping well. He denies VH/AH. No overt delusional content noted or reported. Mostly in room. Review of Systems Constitutional: Denies body ache(s), Denies chills, Denies fatigue and Denies headache(s) Eyes: Denies change in vision and Denies photophobia Denies headache(s), Denies nasal congestion, Denies nasal discharge and Denies sore throat Cardiovascular: Denies chest pain, Denies rapid heart rate, Denies leg edema, Denies lightheadedness and Denies dyspnea Respiratory: Denies chest congestion, Denies cough, Denies dyspnea and Denies wheezing Gastrointestinal: Denies constipation, Denies diarrhea, Denies nausea and Denies vomiting Genitourinary: Denies dysuria, Denies urinary frequency and Denies urinary urgency Musculoskeletal: Denies myalgias and Denies arthralgias Skin/Breast: Denies rash Denies confusion and Denies headache(s) Psychiatric: Reports as per HPI and Denies confusion Endocrine: Denies fatigue Hematologic/Lymphatic: Denies easy bleeding and Denies easy bruising Allergic/Immunologic: Denies wheezing Mental Status Exam Mental Status Exam Narrative: adequately dressed and groomed. hospital clothes. cooperative. no PMA/PMR. speech nml rate. decr amount. nml loudness. nml latency. thoughts linear and logical without evidence of paranoia or delusions. affect constricted, normo-intense, non-labile. mood all right. no SI/SIBI/HI/AVH expressed. Diagnostics Vital Signs (24Hr): Vital Signs - 24 hr 04/02/24 20:00 04/03/24 09:16 Temperature 98.4 F 98.4 F Pulse Rate 79 86 Respiratory Rate 16 14 Blood Pressure 131/67 124/67 Pulse Oximetry 96 97 Oxygen Delivery Method Room Air Room Air BMI result Body Mass Index 43.3 Labs 03/29/24 22:43 Medications Medications Current Medications Acetaminophen (Acetaminophen 325 Mg Tablet) 650 mg PO Q6H PRN PRN Reason: Headache/Pain Mild Scale (1-3) Al Hydroxide/Mg Hydroxide (Magnesium Hydrox/Alum Hydrox 30 Ml Oral.Susp) 30 ml PO Q6H PRN PRN Reason: Heartburn/Nausea Benztropine Mesylate (Benztropine Mesylate 0.5 Mg Tablet) 0.5 mg PO BID [facility] Last Admin: 04/03/24 09:17 Dose: 0.5 mg Haloperidol (Haloperidol 1 Mg Tablet) 2 mg PO BID PRN PRN Reason: Psychosis Hydralazine HCl (Hydralazine Hcl 25 Mg Tablet) 25 mg PO BID [facility]; Protocol Last Admin: 04/03/24 09:17 Dose: 25 mg Hydroxyzine HCl (Hydroxyzine Hcl 25 Mg Tablet) 25 mg PO Q6H PRN PRN Reason: Anxiety Lurasidone HCl (Lurasidone Hcl 80 Mg Tablet) 160 mg PO 1700 [facility] Last Admin: 04/02/24 17:57 Dose: 160 mg Magnesium Hydroxide (Milk Of Magnesia 30 Ml Oral.Susp) 30 ml PO DAILY PRN PRN Reason: Constipation Melatonin (Melatonin 3 Mg Tablet) 6 mg PO BEDTIME PRN PRN Reason: insomnia Metformin HCl (Metformin Hcl 500 Mg Tablet) 500 mg PO DAILY [facility] Last Admin: 04/03/24 09:16 Dose: 500 mg Olanzapine (Olanzapine 5 Mg Tablet) 5 mg PO Q4H PRN PRN Reason: agitation Trazodone HCl (Trazodone Hcl 50 Mg Tablet) 50 mg PO BEDTIME PRN PRN Reason: Insomnia Trazodone HCl (Trazodone Hcl 50 Mg Tablet) 50 mg PO BEDTIME [facility] Last Admin: 04/02/24 20:14 Dose: 50 mg Vitamin D (Cholecalciferol (Vitamin D3) 10 Mcg Tablet) 10 mcg PO DAILY [facility] Last Admin: 04/03/24 09:17 Dose: 10 mcg Allergies Allergies Allergy/AdvReac Type Severity Reaction Status Date / Time No Known Allergies Allergy Verified 03/29/24 22:17 Assessment & Plan Assessment & Plan (1) Schizophrenia: Status: Acute Code(s): F20.9 - Schizophrenia, unspecified Plan 03/30: increase latuda from 120 mg daily at 5 pm to 160 mg daily at 5 pm. otherwise continue previous regimen. 03/31: AH improved, no longer CAH. continue current mgmt. 3-day up tomorrow, pt unsure whether he will stay or go. meds reviewed, reconciled, prescribed. 04/01: retracted 3-day notice. feels he is headed in the right direction and would like to continue present regimen. 04/03 continue tx. Reason for continued inpatient stay Substantial Risk for: inability to function Time Spent With Patient Time: Total time managing care of this patient today ____ minutes.
[2024-04-03] MEDS: Lurasidone HCl 80 MG TABLET 160 MG PO (17:42)
[2024-04-03 20:00] VITALS: BP 133/82; PULSE 83; RESP 16; TEMP 36.7; O2SAT 97
[2024-04-03] MEDS: traZODone HCL 50 MG TABLET PO (20:07)
[2024-04-04 08:30] VITALS: BP 126/96; PULSE 88; RESP 16; TEMP 36.6; O2SAT 97
[2024-04-04] MEDS: metFORMIN HCl 500 MG TABLET PO (08:58)
[2024-04-04] MEDS: Cholecalciferol (Vitamin D3) 10 MCG TABLET PO (08:58)
[2024-04-04] MEDS: Benztropine Mesylate 0.5 MG TABLET PO ×2 (08:58→20:50)
[2024-04-04] MEDS: hydrALAZINE HCl 25 MG TABLET PO ×2 (08:58→20:50)
--- NOTE | 2024-04-04 16:16 | P.PNPSI_ITS ---
Subjective Subjective Date of Service: 04/04/24 Reason For Visit: Unspecified schizophrenia Interim History: reporting decreased AH, no side effects from medication dosing increase. per staff, 3-day up weds. taking medication. not attending groups. Mental Status Exam Mental Status Exam Narrative: adequately dressed and groomed. hospital clothes. cooperative. no PMA/PMR. speech nml rate. decr amount. nml loudness. nml latency. thoughts linear and logical without evidence of paranoia or delusions. affect constricted, normo- intense, non-labile. mood all right. no SI/SIBI/HI/VH expressed. AH continue but abated. Diagnostics Vital Signs (24Hr): Vital Signs - 24 hr 04/03/24 20:00 04/04/24 08:30 Temperature 98.1 F 97.8 F Pulse Rate 83 88 Respiratory Rate 16 16 Blood Pressure 133/82 126/96 H Pulse Oximetry 97 97 Oxygen Delivery Method Room Air Room Air BMI result Body Mass Index 43.3 Labs 03/29/24 22:43 Medications Medications Current Medications Acetaminophen (Acetaminophen 325 Mg Tablet) 650 mg PO Q6H PRN PRN Reason: Headache/Pain Mild Scale (1-3) Al Hydroxide/Mg Hydroxide (Magnesium Hydrox/Alum Hydrox 30 Ml Oral.Susp) 30 ml PO Q6H PRN PRN Reason: Heartburn/Nausea Benztropine Mesylate (Benztropine Mesylate 0.5 Mg Tablet) 0.5 mg PO BID [facility] Last Admin: 04/04/24 08:58 Dose: 0.5 mg Haloperidol (Haloperidol 1 Mg Tablet) 2 mg PO BID PRN PRN Reason: Psychosis Hydralazine HCl (Hydralazine Hcl 25 Mg Tablet) 25 mg PO BID [facility]; Protocol Last Admin: 04/04/24 08:58 Dose: 25 mg Hydroxyzine HCl (Hydroxyzine Hcl 25 Mg Tablet) 25 mg PO Q6H PRN PRN Reason: Anxiety Lurasidone HCl (Lurasidone Hcl 80 Mg Tablet) 160 mg PO 1700 [facility] Last Admin: 04/03/24 17:42 Dose: 160 mg Magnesium Hydroxide (Milk Of Magnesia 30 Ml Oral.Susp) 30 ml PO DAILY PRN PRN Reason: Constipation Melatonin (Melatonin 3 Mg Tablet) 6 mg PO BEDTIME PRN PRN Reason: insomnia Metformin HCl (Metformin Hcl 500 Mg Tablet) 500 mg PO DAILY [facility] Last Admin: 04/04/24 08:58 Dose: 500 mg Olanzapine (Olanzapine 5 Mg Tablet) 5 mg PO Q4H PRN PRN Reason: agitation Trazodone HCl (Trazodone Hcl 50 Mg Tablet) 50 mg PO BEDTIME PRN PRN Reason: Insomnia Trazodone HCl (Trazodone Hcl 50 Mg Tablet) 50 mg PO BEDTIME [facility] Last Admin: 04/03/24 20:07 Dose: 50 mg Vitamin D (Cholecalciferol (Vitamin D3) 10 Mcg Tablet) 10 mcg PO DAILY [facility] Last Admin: 04/04/24 08:58 Dose: 10 mcg Allergies Allergies Allergy/AdvReac Type Severity Reaction Status Date / Time No Known Allergies Allergy Verified 03/29/24 22:17 Assessment & Plan Assessment & Plan (1) Schizophrenia: Status: Acute Code(s): F20.9 - Schizophrenia, unspecified Plan 03/30: increase latuda from 120 mg daily at 5 pm to 160 mg daily at 5 pm. otherwise continue previous regimen. 03/31: AH improved, no longer CAH. continue current mgmt. 3-day up tomorrow, pt unsure whether he will stay or go. meds reviewed, reconciled, prescribed. 04/01: retracted 3-day notice. feels he is headed in the right direction and would like to continue present regimen. 04/03 continue tx. 04/04: 3-day up weds. planning for weds discharge. no s/e. AH improved. contiune current mgmt. Reason for continued inpatient stay Substantial Risk for: inability to function and rapid decompensation Time Spent With Patient Time: Total time managing care of this patient today __25__ minutes.
[2024-04-04] MEDS: Lurasidone HCl 80 MG TABLET 160 MG PO (18:07)
[2024-04-04 20:00] VITALS: BP 135/85; PULSE 80; RESP 16; TEMP 37.1; O2SAT 99
[2024-04-04] MEDS: traZODone HCL 50 MG TABLET PO (20:50)
[2024-04-05 08:32] VITALS: BP 133/90; PULSE 84; RESP 16; TEMP 36.6; O2SAT 97
[2024-04-05] MEDS: Cholecalciferol (Vitamin D3) 10 MCG TABLET PO (08:34)
[2024-04-05] MEDS: metFORMIN HCl 500 MG TABLET PO (08:34)
[2024-04-05] MEDS: Benztropine Mesylate 0.5 MG TABLET PO ×2 (08:34→20:17)
[2024-04-05] MEDS: hydrALAZINE HCl 25 MG TABLET PO ×2 (08:34→20:16)
[2024-04-05 08:46] LABS: Creatinine Clr Calc Pharmacy 156.3; Estimated Glomerular Filt Rate > 60
--- NOTE | 2024-04-05 11:23 | P.DS_ITS ---
DS: Providers Provider Date of Service: 04/05/24 Date of admission: 03/29/24 22:03 Date of discharge: 04/06/24 Primary care physician: Nonstaff Physician Consults: 03/29/24 22:18 Consult to Hospitalist Routine Comment: Consulting Provider: [facility] Hospitalists Reason For Exam: new admit H&P DS: Diagnosis Discharge Diagnosis (1) Schizophrenia: Status: Acute DS: Medications Discharge Medications Home Medications: Home Medications ?Medication ?Instructions ?Recorded ?Confirmed benztropine 1 mg tablet 0.5 mg PO BID 03/29/24 03/29/24 hydralazine 25 mg tablet 25 mg PO BID 03/29/24 03/29/24 melatonin 3 mg tablet 6 mg PO BEDTIME PRN insomnia 03/29/24 03/29/24 metformin 500 mg tablet 500 mg PO DAILY 03/29/24 03/29/24 trazodone 50 mg tablet 50 mg PO BEDTIME 03/29/24 03/29/24 Previous Rx's ?Medication ?Instructions ?Recorded cholecalciferol (vitamin D3) 10 10 mcg PO DAILY #0 tabs 03/31/24 mcg (400 unit) tablet (Vitamin D3) haloperidol 1 mg tablet 2 mg (2 x 1 mg) PO BID PRN 03/31/24 Psychosis #0 tabs lurasidone 80 mg tablet (Latuda) 160 mg (2 x 80 mg) PO 1700 30 days 03/31/24 #60 tabs Mental Status Exam Mental Status Exam Narrative: adequately dressed and groomed. hospital clothes. cooperative. no PMA/PMR. speech nml rate. decr amount. nml loudness. nml latency. thoughts linear and logical without evidence of paranoia or delusions. affect constricted, normo- intense, non-labile. mood good. no SI/SIBI/HI/VH. no AH since yesterday. Data Data Completed and Pending Completed studies during hospitalization [Text1]: 03/29/24 03/30/24 03/31/24 22:43 09:51 07:55 Hold Purple Top Sodium 140 Potassium 3.9 Chloride 109 H Carbon Dioxide 25 Anion Gap 10 L BUN 12 Creatinine 1.14 Estim Creat Clear Calc 156.4 Estimated GFR > 60 Random Glucose 68 Estimat Average Glucose 117 Hemoglobin A1c % 5.7 Calcium 9.2 Total Bilirubin 0.2 AST 33 ALT 27 Alkaline Phosphatase 68 Total Protein 8.1 H Albumin 4.3 Triglycerides 65 Cholesterol 176 LDL Cholesterol, Calc 125 H HDL Cholesterol 38 L 25-OH Vitamin D Total 25-Hydroxy Vitamin D2 25-Hydroxy Vitamin D3 04/01/24 04/05/24 04/05/24 11:28 08:14 08:20 Hold Purple Top SEE NOTE Sodium Potassium Chloride Carbon Dioxide Anion Gap BUN Creatinine 1.13 Estim Creat Clear Calc 156.3 Estimated GFR > 60 Random Glucose Estimat Average Glucose Hemoglobin A1c % Calcium Total Bilirubin AST ALT Alkaline Phosphatase Total Protein Albumin Triglycerides Cholesterol LDL Cholesterol, Calc HDL Cholesterol 25-OH Vitamin D Total Pending 25-Hydroxy Vitamin D2 Pending 25-Hydroxy Vitamin D3 Pending DS: Summary Hospital Course Hospital Course: per 03/30 admission note: HPI Narrative: [place] [facility], pt self-presented c/o CP and feeling like my body is shutting down, as well as CAH and VH. reports feeling paranoid and no longer safe in the community. CAH to do bad things. on interview with MD on unit, pt calm and cooperative. pleasant, Hx, Sx, and medications reviewed. pt endorses Sx as above, states he has been compliant with medications since discharge from [facility] 03/25/24, and agrees to increase latuda from his current 120 mg daily at 5 pm to the FDA max recommended dose of 160 mg daily. plan to otherwise continue current mgmt. Past Psychiatric History: hosps: 12-15. MRE at [facility], discharged 03/25/24. SA: denies SIB: denies HIB: denies outpt: [facility] in [place]. therapy and psychiatry. Medical Evaluation Reviewed: Hospitalist Todd Pending [facility] Medical History (Updated 03/30/24 @ 16:00 by Billy Pinon MD) HTN (hypertension) Narrative: GERD atopic dermatitis Family History: denies Social History: lives with mother, sibs, and niece and nephew in a home owned by his mother. 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 gets SSI now. 3 years of college, general studies. Substance History: denies use of all substances including nicotine, alcohol, and cannabis. Trauma History: denies Precis: 03/30: increase latuda from 120 mg daily at 5 pm to 160 mg daily at 5 pm. otherwise continue previous regimen. 03/31: AH improved, no longer CAH. continue current mgmt. 3-day up tomorrow, pt unsure whether he will stay or go. meds reviewed, reconciled, prescribed. 04/01: retracted 3-day notice. feels he is headed in the right direction and would like to continue present regimen. 04/03 continue tx. 04/04: 3-day up weds. planning for weds discharge. no s/e. AH improved. continue current mgmt. 04/05: meds reviewed, reconciled, prescribed. feeling improved, no safety concerns. last AH yesterday. discharge tomorrow. 04/06: stable, no notable events, discharged to home as per plan. Time Spent with Patient Time attestation: Total time managing care of this patient today _35___ minutes. Discharge Plan Discharge Anticipated Discharge Date/Time: 04/06/24 11:59 Patient Disposition: Home, Self-Care Discharge Diagnosis: Schizophrenia Referrals: Nia Judd (Therapy) [Other] - 04/12/24 9:00 am (IN OFFICE APPOINTMENT) Amanda Delgado (Psychiatry) [Other] - 04/15/24 11:00 am (IN OFFICE APPOINTMENT) [facility] [Provider Group] - 1 Week (03-31-24 [facility] has been added to patients chart. Please call [phone] to schedule your follow up appt.) Discharge Medications: New haloperidol 1 mg Tablet 2 mg PO BID PRN (Reason: Psychosis) Qty: 0 0RF cholecalciferol (vitamin D3) [Vitamin D3] 10 mcg (400 unit) Tablet 10 mcg PO DAILY Qty: 0 0RF lurasidone [Latuda] 80 mg Tablet 160 mg PO 1700 30 Days Qty: 60 0RF Continued benztropine 1 mg tablet 0.5 mg PO BID metformin 500 mg tablet 500 mg PO DAILY trazodone 50 mg tablet 50 mg PO BEDTIME hydralazine 25 mg tablet 25 mg PO BID melatonin 3 mg tablet 6 mg PO BEDTIME PRN (Reason: insomnia) Discontinued haloperidol 5 mg tablet 10 mg PO BID PRN (Reason: Psychosis) lurasidone 120 mg tablet 120 mg PO DAILY Discharge Orders: Discharge Order (Routine); Ordered 04/06/24 Ordered By: Billy Pinon Diet: Advance to usual diet Activity on Discharge: As tolerated Stand Alone Forms: Patient Portal Discharge page, Community Support Print Language: Polish Care Plan Goals: remain safe and stable in the outpatient treatment setting Health Concerns: none Plan of Treatment: take medications as prescribed, attend appointments as scheduled Assessment: not at imminent risk of harm to self or others Discharge Date/Time: 04/06/24 11:00
[2024-04-05] MEDS: Lurasidone HCl 80 MG TABLET 160 MG PO (17:10)
[2024-04-05 20:00] VITALS: BP 128/71; PULSE 82; RESP 16; TEMP 36.9; O2SAT 97
[2024-04-05] MEDS: traZODone HCL 50 MG TABLET PO (20:16)
[2024-04-06 09:12] VITALS: BP 158/72; PULSE 80; RESP 16; TEMP 36.9; O2SAT 98
[2024-04-06] MEDS: Benztropine Mesylate 0.5 MG TABLET PO (09:14)
[2024-04-06] MEDS: metFORMIN HCl 500 MG TABLET PO (09:14)
[2024-04-06] MEDS: Cholecalciferol (Vitamin D3) 10 MCG TABLET PO (09:14)
[2024-04-06] MEDS: hydrALAZINE HCl 25 MG TABLET PO (09:15)
[2024-04-06 12:37] LABS: Vitamin D 25-OH, D2 <4 ng/mL; Vitamin D 25-OH, D3 36 ng/mL; Vitamin D 25-OH, Total 36 ng/mL (30-100)
== END 2024-04-06 11:00 | disposition home or self-care (01) | DRG 750 ==
PROVIDERS: Physician Assistant; Registered Nurse; Student in an Organized Health Care Education/Training Program; Admitting Provider Psychiatry & Neurology Psychiatry; Visit Provider Psychiatry & Neurology Psychiatry
DX: F20.9 Schizophrenia, unspecified (principal); I10 Essential (primary) hypertension; Z79.84 Long term (current) use of oral hypoglycemic drugs; Z79.899 Other long term (current) drug therapy
CPT/HCPCS: 36415; 80053; 80061; 82306; 82565; 83036

== ENCOUNTER → 2024-03-29 22:03 | Outpatient (BNV) | payer MEDICAID, SELFPAY | PROVIDERS: Admitting Provider Psychiatry & Neurology Psychiatry; Visit Provider Psychiatry & Neurology Psychiatry | DX: F20.0 Paranoid schizophrenia (principal) | CPT/HCPCS: 90792; 99231; 99232 ==

== ENCOUNTER → 2024-03-29 22:03 | Outpatient (BNV) | payer MEDICAID, SELFPAY | PROVIDERS: Admitting Provider Psychiatry & Neurology Psychiatry; Visit Provider Physician Assistant | DX: I10 Essential (primary) hypertension (principal) | CPT/HCPCS: 99222 ==

== ENCOUNTER 2024-04-08 17:16 | Inpatient (IN) | payer MEDICAID, SELFPAY ==
[2024-04-08 17:50] VITALS: BP 146/80; PULSE 93; RESP 14; TEMP 36.6; O2SAT 97
--- NOTE | 2024-04-08 18:40 | PC.ADMIT ---
Benedict is a 33 y/o male that was admitted to at 1742 from [place] on [facility] for treatment of unspecified schizophrenia.? Precipitant of admission include an increase in AH and VH. Pt reported ?more aggressive visual hallucinations that happened a day after leaving here?. Pt reported continuing medications after previous d/c. Pt was last IPLOC on M3 04/06/24.? Pt is alert and oriented x3. Calm and cooperative with the admission process.? Lives in a house with mother.? Mood is depressed.? Affect is flat.? Pt reported AH and VH, not command in nature.? Thought process is linear and organized. Normal tone and rate of speech.? Pt denied SI or HI at this time.? No recent weight gain or loss.? Pt held good eye contact? Pt does not use tobacco.? Tox Screen was negative.? Hx of medication noncompliance.? Hx of HTN.? No fall risk? Denied Flu shot.? Pt was compliant with skin check unremarkable.? Pt was placed on 15 min checks for safety.
[2024-04-08 18:47] VITALS: BMI 43.5
[2024-04-08 19:03] LABS: Alanine Aminotransferase 24 U/L (0-40); Albumin Level 4.3 g/dL (3.5-5.0); Alkaline Phosphatase 66 U/L (39-117); Anion Gap 11 (12-20); Aspartate Amino Transferase 28 U/L (5-37); Bilirubin Total 0.3 mg/dL (0.0-1.0); Blood Urea Nitrogen 10 mg/dL (9-16); Calcium 9.5 mg/dL (8.4-10.2); Carbon Dioxide 24 mmol/L (22-29); Chloride 108 mmol/L (96-108); Creatinine Clr Calc Pharmacy 160.8; Estimated Glomerular Filt Rate > 60; Glucose Random 117 mg/dL (60-115); Sodium 139 mmol/L (135-145); Total Protein 8.3 g/dL (6.5-8.0)
[2024-04-08 20:00] VITALS: BP 130/67; PULSE 84; RESP 16; TEMP 36.9; O2SAT 95
[2024-04-08] MEDS: hydrALAZINE HCl 25 MG TABLET PO (20:52)
[2024-04-08] MEDS: Benztropine Mesylate 0.5 MG TABLET PO (20:53)
[2024-04-08] MEDS: traZODone HCL 50 MG TABLET PO (20:53)
--- NOTE | 2024-04-09 07:51 | PHA.MEDREC ---
Pharmacy Consult ? Medication Reconciliation Pharmacy has completed the medication reconciliation. REVIEWED MED REC DONE BY NURSING UTILIZING DISCHARGE PAPERWORK FROM THIS FACILITY FROM 04/06/24.
[2024-04-09 09:44] VITALS: BP 129/63; PULSE 94; RESP 18; TEMP 36.3; O2SAT 97
[2024-04-09] MEDS: Cholecalciferol (Vitamin D3) 10 MCG TABLET PO (09:45)
[2024-04-09] MEDS: Benztropine Mesylate 0.5 MG TABLET PO (09:45)
[2024-04-09] MEDS: hydrALAZINE HCl 25 MG TABLET PO (09:45)
--- NOTE | 2024-04-09 10:22 | P.HPPS_ITS ---
HPI Date of Service: 04/09/24 Chief Complaint: Unspecified schizophrenia Sources of Information: patient interviewed, chart reviewed and crisis/core team assessment reviewed HPI Subjective Notes: Iniguez Warning Narrative: The patient is a 33-year-old male with a past history of schizophrenia and high blood pressure who was recently discharged from this unit a few days ago. According to the crisis assessment, the patient self presented to the emergency room complaining of exacerbation of auditory hallucinations and aggressive visual hallucinations. The patient reported that he had been compliant with medications. The patient was assessed by crisis and since he was actively psychotic transferring to this facility for psychiatric stabilization. On the intake interview, the patient reported that he was feeling extremely tired. He admitted that auditory and visual hallucinations and he stated that he had been compliant in the community with his treatment. He was disengaged and internally preoccupied. I offer him changes in his medications but he did not want to do it. He was able to contract for safety in the unit. We will try to gather more collateral information, in the meantime we will keep on Latuda 160 mg daily that it was changed in the last admission. Past Psychiatric History: hosps: 12-15. MRE at [facility], discharged 03/25/24. Admitted at [facility] 2 weeks ago. SA: denies SIB: denies HIB: denies outpt: CHR in [place]. therapy and psychiatry. Medical Evaluation Reviewed: Yes [facility] Medical History (Updated 03/30/24 @ 16:00 by Billy Pinon MD) HTN (hypertension) Family History: denies Social History: lives with mother, sibs, and niece and nephew in a home owned by his mother. 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 gets SSI now. 3 years of college, general studies. Trauma History: denies Diagnostics Vital Signs (24Hr): Vital Signs - 24 hr 04/08/24 17:50 04/08/24 20:00 04/09/24 09:44 Temperature 98 F 98.5 F 97.3 F Pulse Rate 93 84 94 Respiratory Rate 14 16 18 Blood Pressure 146/80 H 130/67 129/63 Pulse Oximetry 97 95 97 Oxygen Delivery Method Room Air Room Air Room Air BMI result Body Mass Index 43.5 Labs 04/08/24 18:30 Labs: Laboratory Results - last 48 hr 04/08/24 18:30 Sodium 139 Potassium 4.0 Chloride 108 Carbon Dioxide 24 Anion Gap 11 L BUN 10 Creatinine 1.10 Estim Creat Clear Calc 160.8 Estimated GFR > 60 Random Glucose 117 H Calcium 9.5 Total Bilirubin 0.3 AST 28 ALT 24 Alkaline Phosphatase 66 Total Protein 8.3 H Albumin 4.3 Meds/Allergies Meds Home Medications ?Medication ?Instructions ?Recorded ?Confirmed ?Type benztropine 1 mg tablet 0.5 mg PO BID 03/29/24 04/08/24 History hydralazine 25 mg tablet 25 mg PO BID 03/29/24 04/08/24 History melatonin 3 mg tablet 6 mg PO BEDTIME PRN insomnia 03/29/24 04/08/24 History metformin 500 mg tablet 500 mg PO DAILY 03/29/24 04/08/24 History trazodone 50 mg tablet 50 mg PO BEDTIME 03/29/24 04/08/24 History Allergies Allergies Allergy/AdvReac Type Severity Reaction Status Date / Time No Known Allergies Allergy Verified 03/29/24 22:17 Mental Status Exam Mental Status Exam Patient Appearance: Appropriate and Unkempt Patient Orientation: Person, Place and Situation Level of Consciousness: Awake Patient Behavior: Guarded and Passive Mood Description: Withdrawn Affect Description: Blunted Patient Cognition Impaired: Yes Ability to Follow Directions: Fair Speech Pattern: Impoverished Hallucinations: Auditory and Visual Delusions: Paranoid Ideation and Ideas of Reference Thought Process: Illogical and Slowed Thinking Thought Content: positive for [place] and positive for Poverty of Content Judgement: Fair Assessment & Plan Assessment & Plan (1) Schizophrenia: Status: Acute Code(s): F20.9 - Schizophrenia, unspecified (2) HTN (hypertension): Status: Acute Code(s): I10 - Essential (primary) hypertension Plan The patient is an adult male with a past history of schizophrenia who was readmitted for exacerbation of psychotic symptoms, recently discharged from this unit 10 days ago. The patient was assessed by crisis and transferring to this facility for psychiatric stabilization. According to the patient he was compliant with treatment. Plan 1. Gather collateral information. 2. 15 minute checks since the patient is able to contract for safety. 3. Continue Latuda 160 mg as per last admission. 4. Regular blood work and physical exam. 5. Reassessment with results. Patient educated on: diagnosis, medication risk/benefits, therapeutic strategies and medical condition Reason for continued inpatient stay Substantial Risk for: inability to function, rapid decompensation and med/psych decompensation Statement Statement: I have reviewed the history and physical and performed a pertinent examination on my patient. No changes have occurred unless specified. If the History and Physical was not performed prior to admission, the Hospitalist's service will be consulted for completing the admission physical. Time Spent With Patient Time: Total time managing care of this patient today __45__ minutes.
--- NOTE | 2024-04-09 11:43 | P.CONHOSP_ITS ---
History of Present Illness Data of Consult Service Date: 04/09/24 Primary Care Provider: Unknown Physician HPI Reason for consult: Admission H&P Pt is a 33-year-old male with a PMH significant for?rzy-yspaawp-plmzqoqpa type 2 diabetes, HTN, obesity class 3, and schizophrenia who is admitted to psychiatry due to worsening auditory and visual hallucinations. Pt also complained substernal chest pain and pressure, though cardiac in the ED was negative. Medical consult for admission H&P. Pt denies any acute medical complaints. No fever, chills, nausea, vomiting, abdominal pain. No chest pain/pressure, palpitations. Denies shortness or breath or difficulty breathing. No cough. Denies headache or acute vision changes. Review of Systems 2 Review of Systems: Pt has no acute medical complaints at this time [facility] Medical History (Updated 04/09/24 @ 15:52 by NEW Lal) Non-insulin dependent type 2 diabetes mellitus HTN (hypertension) Social History Household Members: Family Housing: House Do you presently have visiting nurse or other home services: No Patient Tobacco Use Status: Never used Tobacco Use of substances other than those prescribed or required for medical reasons: No Currently Displaying Signs/Symptoms of Drug Intoxication Withdrawal: No Have you been hit, kicked, punched, or otherwise hurt by someone within the past year? If so, by whom?: No Do you feel safe in your current relationship?: No Current Relationship Is there a partner from a previous relationship who is making you feel unsafe now?: No Are you made to feel afraid or neglected: No Advance Directives: No Advance Directives Information Provided: No Do you have thoughts of harming others: None Do you have a plan to hurt others: No Plan Recently lost weight without trying: No How much weight loss: Not applicable Eating poorly because of decreased appetite: No Nutrition screen score: 0 Nutrition Risks: No Nutritional Risk Poor oral hygiene: No service: No Sexual orientation: Unable to collect Meds Allergies Allergy/AdvReac Type Severity Reaction Status Date / Time No Known Allergies Allergy Verified 03/29/24 22:17 Active Medications: Current Medications Acetaminophen (Acetaminophen 325 Mg Tablet) 650 mg PO Q6H PRN PRN Reason: Headache/Pain Mild Scale (1-3) Al Hydroxide/Mg Hydroxide (Magnesium Hydrox/Alum Hydrox 30 Ml Oral.Susp) 30 ml PO Q6H PRN PRN Reason: Heartburn/Nausea Benztropine Mesylate (Benztropine Mesylate 0.5 Mg Tablet) 0.5 mg PO BID [facility] Last Admin: 04/09/24 09:45 Dose: 0.5 mg Haloperidol (Haloperidol 1 Mg Tablet) 2 mg PO BID PRN PRN Reason: Psychosis Hydralazine HCl (Hydralazine Hcl 25 Mg Tablet) 25 mg PO BID [facility]; Protocol Last Admin: 04/09/24 09:45 Dose: 25 mg Hydroxyzine HCl (Hydroxyzine Hcl 25 Mg Tablet) 25 mg PO Q6H PRN PRN Reason: Anxiety Lurasidone HCl (Lurasidone Hcl 80 Mg Tablet) 160 mg PO DAILY@1700 [facility] Magnesium Hydroxide (Milk Of Magnesia 30 Ml Oral.Susp) 30 ml PO DAILY PRN PRN Reason: Constipation Melatonin (Melatonin 3 Mg Tablet) 6 mg PO BEDTIME PRN PRN Reason: insomnia Metformin HCl (Metformin Hcl 500 Mg Tablet) 500 mg PO DAILY@1700 [facility] Nicotine Polacrilex (Nicotine Polacrilex 2 Mg Gum) 2 mg BUCCAL Q2H PRN PRN Reason: Nicotine Cravings Trazodone HCl (Trazodone Hcl 50 Mg Tablet) 50 mg PO BEDTIME MRX1 PRN PRN Reason: Insomnia Trazodone HCl (Trazodone Hcl 50 Mg Tablet) 50 mg PO BEDTIME [facility] Last Admin: 04/08/24 20:53 Dose: 50 mg Vitamin D (Cholecalciferol (Vitamin D3) 10 Mcg Tablet) 10 mcg PO DAILY [facility] Last Admin: 04/09/24 09:45 Dose: 10 mcg Home Medications ?Medication ?Instructions ?Recorded ?Confirmed ?Last Taken ?Type benztropine 1 mg tablet 0.5 mg PO BID 03/29/24 04/08/24 04/08/24 History hydralazine 25 mg tablet 25 mg PO BID 03/29/24 04/08/24 04/08/24 History melatonin 3 mg tablet 6 mg PO BEDTIME PRN insomnia 03/29/24 04/08/24 Unknown History metformin 500 mg tablet 500 mg PO DAILY 03/29/24 04/08/24 04/07/24 History trazodone 50 mg tablet 50 mg PO BEDTIME 03/29/24 04/08/2404/07/25 History Physical Exam 2 Vital Signs and Narrative: Vital Signs: Last Vital Signs Temp 97.3 F 04/09/24 09:44 Pulse 94 04/09/24 09:44 Resp 18 04/09/24 09:44 BP 129/63 04/09/24 09:44 Pulse Ox 97 04/09/24 09:44 O2 Del Method Room Air 04/09/24 09:44 BMI result Body Mass Index 43.5 General: AOx3, no acute distress Resp: CTA bilaterally CVS: S1, S2, RRR GI: +BS, NT, no distention, obese Skin: Warm, dry Neuro: Cranial nerves II-XII grossly intact bilaterally. Motor grossly intact bilaterally Extremities: No edema Results Labs 04/08/24 18:30 Labs: Laboratory Results - last 24 hr 04/08/24 18:30 Anion Gap 11 L Estim Creat Clear Calc 160.8 Estimated GFR > 60 Random Glucose 117 H Calcium 9.5 Total Bilirubin 0.3 AST 28 ALT 24 Alkaline Phosphatase 66 Total Protein 8.3 H Albumin 4.3 Assessment and Plan (1) Medical clearance for psychiatric admission: Status: Acute Plan Pt is a 33-year-old male with a PMH significant for?nvk-jyqpkkx-tdcdqvbli type 2 diabetes, HTN, obesity class 3, and schizophrenia who is admitted to [facility] due to worsening auditory and visual hallucinations. Pt also complained substernal chest pain and pressure, though cardiac in the ED was negative. Medical consult for admission H&P. Pt denies any acute medical complaints. Mood disorder Plan as per Psychiatry [id number] type 2 diabetes Continue metformin Encourage diabetic diet and diabetic snacking HTN Continue hydralazine Thank you for allowing us to participate in the care of this patient. Signing off at this time. Please re-consult if any acute complaints or issues arise.
[2024-04-09] MEDS: metFORMIN HCl 500 MG TABLET PO (17:20)
[2024-04-09] MEDS: Lurasidone HCl 80 MG TABLET 160 MG PO (17:20)
[2024-04-09 20:28] VITALS: BP 111/66; PULSE 91; RESP 16; TEMP 36.9; O2SAT 96
[2024-04-10] MEDS: traZODone HCL 50 MG TABLET PO ×2 (02:12→20:24)
[2024-04-10 09:01] VITALS: BP 116/62; PULSE 88; RESP 19; TEMP 36.8; O2SAT 97
[2024-04-10] MEDS: Benztropine Mesylate 0.5 MG TABLET PO ×2 (09:04→20:24)
[2024-04-10] MEDS: Cholecalciferol (Vitamin D3) 10 MCG TABLET PO (09:04)
[2024-04-10] MEDS: hydrALAZINE HCl 25 MG TABLET PO ×2 (09:04→20:24)
[2024-04-10] MEDS: metFORMIN HCl 500 MG TABLET PO (17:52)
[2024-04-10] MEDS: Lurasidone HCl 80 MG TABLET 160 MG PO (17:52)
[2024-04-10 20:00] VITALS: BP 112/86; PULSE 74; RESP 16; TEMP 36.6; O2SAT 99
[2024-04-11 08:14] VITALS: BP 120/74; PULSE 83; RESP 20; TEMP 36.5; O2SAT 98
[2024-04-11] MEDS: Cholecalciferol (Vitamin D3) 10 MCG TABLET PO (08:54)
[2024-04-11] MEDS: hydrALAZINE HCl 25 MG TABLET PO ×2 (08:54→20:39)
[2024-04-11] MEDS: Benztropine Mesylate 0.5 MG TABLET PO ×2 (08:54→20:39)
--- NOTE | 2024-04-11 10:18 | P.PNPSI_ITS ---
Subjective Subjective Date of Service: 04/11/24 Reason For Visit: Unspecified schizophrenia Subjective Notes: Conditional Voluntary Interim History: Keeping to self. laying in bed most of morning. guarded. Patient reports feeling alright ; denies SI/HI. He does report auditory hallucinations and visual hallucinations. pt stated, I see people that I know and they are just making noises . he reports sleeping well. encouraged to utilize PRN's in needed. denies any other issues at this time. Medication Compliance: Yes Side effects from medications: No Attending Groups: No Review of Systems Constitutional: Reports as per HPI Eyes: Reports as per HPI Reports as per HPI Cardiovascular: Reports as per HPI Respiratory: Reports as per HPI Gastrointestinal: Reports as per HPI Genitourinary: Reports as per HPI Musculoskeletal: Reports as per HPI Skin/Breast: Reports as per HPI Reports as per HPI Psychiatric: Reports as per HPI Endocrine: Reports as per HPI Hematologic/Lymphatic: Reports as per HPI Allergic/Immunologic: Reports as per HPI Mental Status Exam Mental Status Exam Narrative: Pt is alert and oriented; behavior is cooperative, calm, guarded; dressed in casual attire; mood is described as alright ; eye contact appropriate; Speech is normal rate, volume and not pressured; thought process is organized; Thought content is on tx; denies SI/HI. Pt reports auditory and visual hallucinations. Diagnostics Vital Signs (24Hr): Vital Signs - 24 hr 04/10/24 20:00 04/11/24 08:14 Temperature 98 F 97.7 F Pulse Rate 74 83 Respiratory Rate 16 20 Blood Pressure 112/86 120/74 Pulse Oximetry 99 98 Oxygen Delivery Method Room Air Room Air BMI result Body Mass Index 43.5 Labs 04/08/24 18:30 Medications Medications Current Medications Acetaminophen (Acetaminophen 325 Mg Tablet) 650 mg PO Q6H PRN PRN Reason: Headache/Pain Mild Scale (1-3) Al Hydroxide/Mg Hydroxide (Magnesium Hydrox/Alum Hydrox 30 Ml Oral.Susp) 30 ml PO Q6H PRN PRN Reason: Heartburn/Nausea Benztropine Mesylate (Benztropine Mesylate 0.5 Mg Tablet) 0.5 mg PO BID [facility] Last Admin: 04/11/24 08:54 Dose: 0.5 mg Haloperidol (Haloperidol 1 Mg Tablet) 2 mg PO BID PRN PRN Reason: Psychosis Hydralazine HCl (Hydralazine Hcl 25 Mg Tablet) 25 mg PO BID [facility]; Protocol Last Admin: 04/11/24 08:54 Dose: 25 mg Hydroxyzine HCl (Hydroxyzine Hcl 25 Mg Tablet) 25 mg PO Q6H PRN PRN Reason: Anxiety Lurasidone HCl (Lurasidone Hcl 80 Mg Tablet) 160 mg PO DAILY@1700 [facility] Last Admin: 04/10/24 17:52 Dose: 160 mg Magnesium Hydroxide (Milk Of Magnesia 30 Ml Oral.Susp) 30 ml PO DAILY PRN PRN Reason: Constipation Melatonin (Melatonin 3 Mg Tablet) 6 mg PO BEDTIME PRN PRN Reason: insomnia Metformin HCl (Metformin Hcl 500 Mg Tablet) 500 mg PO DAILY@1700 [facility] Last Admin: 04/10/24 17:52 Dose: 500 mg Nicotine Polacrilex (Nicotine Polacrilex 2 Mg Gum) 2 mg BUCCAL Q2H PRN PRN Reason: Nicotine Cravings Trazodone HCl (Trazodone Hcl 50 Mg Tablet) 50 mg PO BEDTIME MRX1 PRN PRN Reason: Insomnia Trazodone HCl (Trazodone Hcl 50 Mg Tablet) 50 mg PO BEDTIME [facility] Last Admin: 04/10/24 20:24 Dose: 50 mg Vitamin D (Cholecalciferol (Vitamin D3) 10 Mcg Tablet) 10 mcg PO DAILY [facility] Last Admin: 04/11/24 08:54 Dose: 10 mcg Allergies Allergies Allergy/AdvReac Type Severity Reaction Status Date / Time No Known Allergies Allergy Verified 03/29/24 22:17 Assessment & Plan Assessment & Plan (1) Schizophrenia: Status: Acute Code(s): F20.9 - Schizophrenia, unspecified Plan The patient is an adult male with a past history of schizophrenia who was readmitted for exacerbation of psychotic symptoms, recently discharged from this unit 10 days ago. The patient was assessed by crisis and transferring to this facility for psychiatric stabilization. According to the patient he was compliant with treatment. Plan 1. Gather collateral information. 2. 15 minute checks since the patient is able to contract for safety. 3. Continue Latuda 160 mg as per last admission. 4. Regular blood work and physical exam. 5. Reassessment with results. 04/11: Keeping to self. laying in bed most of morning. guarded. Patient reports feeling alright ; denies SI/HI. He does report auditory hallucinations and visual hallucinations. pt stated, I see people that I know and they are just making noises . he reports sleeping well. encouraged to utilize PRN's in needed. denies any other issues at this time. Patient educated on: diagnosis and medication risk/benefits Reason for continued inpatient stay Substantial Risk for: med/psych decompensation Time Spent With Patient Time: Total time managing care of this patient today _20___ minutes.
[2024-04-11] MEDS: Acetaminophen 325 MG TABLET 650 MG PO (15:39)
[2024-04-11] MEDS: Lurasidone HCl 80 MG TABLET 160 MG PO (17:23)
[2024-04-11] MEDS: metFORMIN HCl 500 MG TABLET PO (17:24)
[2024-04-11 20:00] VITALS: BP 131/87; PULSE 82; RESP 16; TEMP 36.3; O2SAT 97
[2024-04-11] MEDS: traZODone HCL 50 MG TABLET PO (20:39)
[2024-04-12 07:42] VITALS: BP 124/87; PULSE 86; RESP 16; TEMP 36.4; O2SAT 97
[2024-04-12] MEDS: Cholecalciferol (Vitamin D3) 10 MCG TABLET PO (08:07)
[2024-04-12] MEDS: Benztropine Mesylate 0.5 MG TABLET PO ×2 (08:07→21:41)
[2024-04-12] MEDS: hydrALAZINE HCl 25 MG TABLET PO ×2 (08:07→21:41)
--- NOTE | 2024-04-12 11:28 | HO.PSYCHPN ---
Subjective Subjective Date of Service: 04/12/24 Reason For Visit: Unspecified schizophrenia Subjective Notes: Conditional Voluntary Interim History: Keeping to self. guarded. Patient reports feeling okay ; discussed discharging home on with follow up outpatient psychiatric appointment on Thursday. denies SI/HI. He continues to report auditory hallucinations of things I'm doing or thinking about . Encouraged to attend groups. Medication Compliance: Yes Side effects from medications: No Attending Groups: No Review of Systems Constitutional: Reports as per HPI Eyes: Reports as per HPI Reports as per HPI Cardiovascular: Reports as per HPI Respiratory: Reports as per HPI Gastrointestinal: Reports as per HPI Genitourinary: Reports as per HPI Musculoskeletal: Reports as per HPI Skin/Breast: Reports as per HPI Reports as per HPI Psychiatric: Reports as per HPI Endocrine: Reports as per HPI Hematologic/Lymphatic: Reports as per HPI Allergic/Immunologic: Reports as per HPI Mental Status Exam Mental Status Exam Narrative: Pt is alert and oriented; behavior is cooperative, calm, guarded; dressed in casual attire; mood is described as okay ; eye contact appropriate; Speech is normal rate, volume and not pressured; thought process is organized; Thought content is on tx; denies SI/HI. Pt reports auditory and visual hallucinations. Diagnostics Vital Signs (24Hr): Vital Signs - 24 hr 04/11/24 20:00 04/12/24 07:42 Temperature 97.3 F 97.5 F Pulse Rate 82 86 Respiratory Rate 16 16 Blood Pressure 131/87 124/87 Pulse Oximetry 97 97 Oxygen Delivery Method Room Air Room Air BMI result Body Mass Index 43.5 Labs 04/08/24 18:30 Medications Medications Current Medications Acetaminophen (Acetaminophen 325 Mg Tablet) 650 mg PO Q6H PRN PRN Reason: Headache/Pain Mild Scale (1-3) Last Admin: 04/11/24 15:39 Dose: 650 mg Al Hydroxide/Mg Hydroxide (Magnesium Hydrox/Alum Hydrox 30 Ml Oral.Susp) 30 ml PO Q6H PRN PRN Reason: Heartburn/Nausea Benztropine Mesylate (Benztropine Mesylate 0.5 Mg Tablet) 0.5 mg PO BID [facility] Last Admin: 04/12/24 08:07 Dose: 0.5 mg Haloperidol (Haloperidol 1 Mg Tablet) 2 mg PO BID PRN PRN Reason: Psychosis Hydralazine HCl (Hydralazine Hcl 25 Mg Tablet) 25 mg PO BID [facility]; Protocol Last Admin: 04/12/24 08:07 Dose: 25 mg Hydroxyzine HCl (Hydroxyzine Hcl 25 Mg Tablet) 25 mg PO Q6H PRN PRN Reason: Anxiety Lurasidone HCl (Lurasidone Hcl 80 Mg Tablet) 160 mg PO DAILY@1700 [facility] Last Admin: 04/11/24 17:23 Dose: 160 mg Magnesium Hydroxide (Milk Of Magnesia 30 Ml Oral.Susp) 30 ml PO DAILY PRN PRN Reason: Constipation Melatonin (Melatonin 3 Mg Tablet) 6 mg PO BEDTIME PRN PRN Reason: insomnia Metformin HCl (Metformin Hcl 500 Mg Tablet) 500 mg PO DAILY@1700 [facility] Last Admin: 04/11/24 17:24 Dose: 500 mg Nicotine Polacrilex (Nicotine Polacrilex 2 Mg Gum) 2 mg BUCCAL Q2H PRN PRN Reason: Nicotine Cravings Trazodone HCl (Trazodone Hcl 50 Mg Tablet) 50 mg PO BEDTIME MRX1 PRN PRN Reason: Insomnia Trazodone HCl (Trazodone Hcl 50 Mg Tablet) 50 mg PO BEDTIME [facility] Last Admin: 04/11/24 20:39 Dose: 50 mg Vitamin D (Cholecalciferol (Vitamin D3) 10 Mcg Tablet) 10 mcg PO DAILY [facility] Last Admin: 04/12/24 08:07 Dose: 10 mcg Allergies Allergies Allergy/AdvReac Type Severity Reaction Status Date / Time No Known Allergies Allergy Verified 03/29/24 22:17 Assessment & Plan Assessment & Plan (1) Schizophrenia: Status: Acute Code(s): F20.9 - Schizophrenia, unspecified Plan The patient is an adult male with a past history of schizophrenia who was readmitted for exacerbation of psychotic symptoms, recently discharged from this unit 10 days ago. The patient was assessed by crisis and transferring to this facility for psychiatric stabilization. According to the patient he was compliant with treatment. Plan 1. Gather collateral information. 2. 15 minute checks since the patient is able to contract for safety. 3. Continue Latuda 160 mg as per last admission. 4. Regular blood work and physical exam. 5. Reassessment with results. 04/11: Keeping to self. laying in bed most of morning. guarded. Patient reports feeling alright ; denies SI/HI. He does report auditory hallucinations and visual hallucinations. pt stated, I see people that I know and they are just making noises . he reports sleeping well. encouraged to utilize PRN's in needed. denies any other issues at this time. 04/12: Keeping to self. guarded. Patient reports feeling okay ; discussed discharging home on with follow up outpatient psychiatric appointment on Thursday. denies SI/HI. He continues to report auditory hallucinations of things I'm doing or thinking about . Encouraged to attend groups. continue current tx plan. Patient educated on: diagnosis, medication risk/benefits and therapeutic strategies Reason for continued inpatient stay Substantial Risk for: med/psych decompensation Time Spent With Patient Time: Total time managing care of this patient today _20___ minutes.
[2024-04-12] MEDS: Lurasidone HCl 80 MG TABLET 160 MG PO (17:00)
[2024-04-12] MEDS: metFORMIN HCl 500 MG TABLET PO (17:00)
[2024-04-12] MEDS: HaloperidoL 1 MG TABLET 2 MG PO (17:03)
[2024-04-12 21:39] VITALS: BP 131/84; PULSE 82; RESP 16; TEMP 36.4; O2SAT 97
[2024-04-12] MEDS: traZODone HCL 50 MG TABLET PO (21:41)
[2024-04-13] MEDS: Melatonin 3 MG TABLET 6 MG PO (00:53)
[2024-04-13 08:59] LABS: Cholesterol 185 mg/dL (<200); HDL Cholesterol 41 mg/dL (>40); LDL Cholesterol Calculated 126 mg/dL (<100); Triglycerides 91 mg/dL (<150)
[2024-04-13 09:00] VITALS: PULSE 88; RESP 16; TEMP 36.1; O2SAT 100
[2024-04-13 09:01] VITALS: BP 132/75
[2024-04-13] MEDS: hydrALAZINE HCl 25 MG TABLET PO ×2 (09:01→21:02)
[2024-04-13] MEDS: Cholecalciferol (Vitamin D3) 10 MCG TABLET PO (09:02)
[2024-04-13] MEDS: Benztropine Mesylate 0.5 MG TABLET PO ×2 (09:02→21:02)
--- NOTE | 2024-04-13 12:39 | HO.PSYCHPN ---
Subjective Subjective Date of Service: 04/13/24 Reason For Visit: Unspecified schizophrenia Subjective Notes: Conditional Voluntary Interim History: Patient reports feeling alright ; discussed discharging home tomorrow with follow up outpatient psychiatric appointment on Thursday. Pt reports he plans on following up with his outpatient providers. He continues to report auditory hallucinations of commenting on what I'm doing . States he is sleeping well. denies SI/HI/VH. Medication Compliance: Yes Side effects from medications: No Attending Groups: No Review of Systems Constitutional: Reports as per HPI Eyes: Reports as per HPI Reports as per HPI Cardiovascular: Reports as per HPI Respiratory: Reports as per HPI Gastrointestinal: Reports as per HPI Genitourinary: Reports as per HPI Musculoskeletal: Reports as per HPI Skin/Breast: Reports as per HPI Reports as per HPI Psychiatric: Reports as per HPI Endocrine: Reports as per HPI Hematologic/Lymphatic: Reports as per HPI Allergic/Immunologic: Reports as per HPI Mental Status Exam Mental Status Exam Narrative: Pt is alert and oriented; behavior is cooperative, calm, guarded; dressed in casual attire; mood is described as good ; eye contact appropriate; Speech is normal rate, volume and not pressured; thought process is organized; Thought content is on tx; denies SI/HI/VH. Pt reports auditory hallucinations. Diagnostics Vital Signs (24Hr): Vital Signs - 24 hr 04/12/24 21:39 04/13/24 09:00 04/13/24 09:01 Temperature 97.5 F 97 F Pulse Rate 82 88 Respiratory Rate 16 16 Blood Pressure 131/84 132/75 Pulse Oximetry 97 100 Oxygen Delivery Method Room Air BMI result Body Mass Index 43.5 Labs 04/08/24 18:30 Labs: Laboratory Results - last 48 hr 04/13/24 07:48 Triglycerides 91 Cholesterol 185 LDL Cholesterol, Calc 126 H HDL Cholesterol 41 Medications Medications Current Medications Acetaminophen (Acetaminophen 325 Mg Tablet) 650 mg PO Q6H PRN PRN Reason: Headache/Pain Mild Scale (1-3) Last Admin: 04/11/24 15:39 Dose: 650 mg Al Hydroxide/Mg Hydroxide (Magnesium Hydrox/Alum Hydrox 30 Ml Oral.Susp) 30 ml PO Q6H PRN PRN Reason: Heartburn/Nausea Benztropine Mesylate (Benztropine Mesylate 0.5 Mg Tablet) 0.5 mg PO BID ROSA Last Admin: 04/13/24 09:02 Dose: 0.5 mg Haloperidol (Haloperidol 1 Mg Tablet) 2 mg PO BID PRN PRN Reason: Psychosis Last Admin: 04/12/24 17:03 Dose: 2 mg Hydralazine HCl (Hydralazine Hcl 25 Mg Tablet) 25 mg PO BID [facility]; Protocol Last Admin: 04/13/24 09:01 Dose: 25 mg Hydroxyzine HCl (Hydroxyzine Hcl 25 Mg Tablet) 25 mg PO Q6H PRN PRN Reason: Anxiety Lurasidone HCl (Lurasidone Hcl 80 Mg Tablet) 160 mg PO DAILY@1700 [facility] Last Admin: 04/12/24 17:00 Dose: 160 mg Magnesium Hydroxide (Milk Of Magnesia 30 Ml Oral.Susp) 30 ml PO DAILY PRN PRN Reason: Constipation Melatonin (Melatonin 3 Mg Tablet) 6 mg PO BEDTIME PRN PRN Reason: insomnia Last Admin: 04/13/24 00:53 Dose: 6 mg Metformin HCl (Metformin Hcl 500 Mg Tablet) 500 mg PO DAILY@1700 [facility] Last Admin: 04/12/24 17:00 Dose: 500 mg Nicotine Polacrilex (Nicotine Polacrilex 2 Mg Gum) 2 mg BUCCAL Q2H PRN PRN Reason: Nicotine Cravings Trazodone HCl (Trazodone Hcl 50 Mg Tablet) 50 mg PO BEDTIME MRX1 PRN PRN Reason: Insomnia Trazodone HCl (Trazodone Hcl 50 Mg Tablet) 50 mg PO BEDTIME [facility] Last Admin: 04/12/24 21:41 Dose: 50 mg Vitamin D (Cholecalciferol (Vitamin D3) 10 Mcg Tablet) 10 mcg PO DAILY [facility] Last Admin: 04/13/24 09:02 Dose: 10 mcg Allergies Allergies Allergy/AdvReac Type Severity Reaction Status Date / Time No Known Allergies Allergy Verified 03/29/24 22:17 Assessment & Plan Assessment & Plan (1) Schizophrenia: Status: Acute Code(s): F20.9 - Schizophrenia, unspecified Plan The patient is an adult male with a past history of schizophrenia who was readmitted for exacerbation of psychotic symptoms, recently discharged from this unit 10 days ago. The patient was assessed by crisis and transferring to this facility for psychiatric stabilization. According to the patient he was compliant with treatment. Plan 1. Gather collateral information. 2. 15 minute checks since the patient is able to contract for safety. 3. Continue Latuda 160 mg as per last admission. 4. Regular blood work and physical exam. 5. Reassessment with results. 04/11: Keeping to self. laying in bed most of morning. guarded. Patient reports feeling alright ; denies SI/HI. He does report auditory hallucinations and visual hallucinations. pt stated, I see people that I know and they are just making noises . he reports sleeping well. encouraged to utilize PRN's in needed. denies any other issues at this time. 04/12: Keeping to self. guarded. Patient reports feeling okay ; discussed discharging home on with follow up outpatient psychiatric appointment on Thursday. denies SI/HI. He continues to report auditory hallucinations of things I'm doing or thinking about . Encouraged to attend groups. continue current tx plan. 04/13: Patient reports feeling alright ; discussed discharging home tomorrow with follow up outpatient psychiatric appointment on Thursday. Pt reports he plans on following up with his outpatient providers. He continues to report auditory hallucinations of commenting on what I'm doing . States he is sleeping well. denies SI/HI/VH. Patient educated on: diagnosis and medication risk/benefits Reason for continued inpatient stay Substantial Risk for: stable for discharge Time Spent With Patient Time: Total time managing care of this patient today _20___ minutes.
[2024-04-13] MEDS: Magnesium Hydrox/Alum Hydrox 30 ML ORAL.SUSP PO (17:42)
[2024-04-13] MEDS: Lurasidone HCl 80 MG TABLET 160 MG PO (17:43)
[2024-04-13] MEDS: metFORMIN HCl 500 MG TABLET PO (17:43)
[2024-04-13 19:48] VITALS: BP 121/63; PULSE 102; RESP 18; TEMP 36.9; O2SAT 100
[2024-04-13 21:02] VITALS: BP 120/93
[2024-04-13] MEDS: traZODone HCL 50 MG TABLET PO (21:02)
[2024-04-13] MEDS: Acetaminophen 325 MG TABLET 650 MG PO (22:07)
[2024-04-14 07:00] VITALS: BMI 43.9
[2024-04-14 09:13] VITALS: BP 126/55; PULSE 100; RESP 18; TEMP 37.8; O2SAT 97
[2024-04-14] MEDS: Cholecalciferol (Vitamin D3) 10 MCG TABLET PO (09:13)
[2024-04-14] MEDS: Benztropine Mesylate 0.5 MG TABLET PO (09:13)
[2024-04-14] MEDS: hydrALAZINE HCl 25 MG TABLET PO (09:13)
[2024-04-14] MEDS: Magnesium Hydrox/Alum Hydrox 30 ML ORAL.SUSP PO (09:20)
--- NOTE | 2024-04-14 11:03 | P.DS_ITS ---
DS: Providers Provider Date of Service: 04/14/24 Date of admission: 04/08/24 17:16 Date of discharge: 04/14/24 Primary care physician: Unknown Physician Attending physician on admission: Alvarez Gaytan Consults: 04/08/24 17:41 Consult to Hospitalist Routine Comment: Consulting Provider: [facility] Hospitalists Reason For Exam: Direct admission from [facility] Attending physician on discharge: Ten Burgess Discharging clinician: Mirta Chandler DS: Diagnosis Discharge Diagnosis (1) Schizophrenia: Status: Acute DS: Medications Discharge Medications Home Medications: Home Medications ?Medication ?Instructions ?Recorded ?Confirmed benztropine 1 mg tablet 0.5 mg PO BID 03/29/24 04/08/24 hydralazine 25 mg tablet 25 mg PO BID 03/29/24 04/08/24 melatonin 3 mg tablet 6 mg PO BEDTIME PRN insomnia 03/29/24 04/08/24 metformin 500 mg tablet 500 mg PO DAILY 03/29/24 04/08/24 trazodone 50 mg tablet 50 mg PO BEDTIME 03/29/24 04/08/24 Previous Rx's ?Medication ?Instructions ?Recorded cholecalciferol (vitamin D3) 10 10 mcg PO DAILY #0 tabs 03/31/24 mcg (400 unit) tablet (Vitamin D3) haloperidol 1 mg tablet 2 mg (2 x 1 mg) PO BID PRN 03/31/24 Psychosis #0 tabs lurasidone 80 mg tablet (Latuda) 160 mg (2 x 80 mg) PO 1700 30 days 03/31/24 #60 tabs Mental Status Exam Mental Status Exam Narrative: Pt is alert and oriented; behavior is cooperative, calm; dressed in casual attire; mood is described as good ; eye contact appropriate; Speech is normal rate, volume and not pressured; thought process is organized; Thought content is on discharge; denies SI/HI/VH. Pt reports auditory hallucinations. Data Data Completed and Pending Completed studies during hospitalization [Text1]: 04/08/24 04/13/24 18:30 07:48 Sodium 139 Potassium 4.0 Chloride 108 Carbon Dioxide 24 Anion Gap 11 L BUN 10 Creatinine 1.10 Estim Creat Clear Calc 160.8 Estimated GFR > 60 Random Glucose 117 H Calcium 9.5 Total Bilirubin 0.3 AST 28 ALT 24 Alkaline Phosphatase 66 Total Protein 8.3 H Albumin 4.3 Triglycerides 91 Cholesterol 185 LDL Cholesterol, Calc 126 H HDL Cholesterol 41 DS: Summary Hospital Course Hospital Course: The patient is a 33-year-old male with a past history of schizophrenia and high blood pressure who was recently discharged from this unit a few days ago. According to the crisis assessment, the patient self presented to the emergency room complaining of exacerbation of auditory hallucinations and aggressive visual hallucinations. The patient reported that he had been compliant with medications. The patient was assessed by crisis and since he was actively psychotic transferring to this facility for psychiatric stabilization. On the intake interview, the patient reported that he was feeling extremely tired. He admitted that auditory and visual hallucinations and he stated that he had been compliant in the community with his treatment. He was disengaged and internally preoccupied. I offer him changes in his medications but he did not want to do it. He was able to contract for safety in the unit. We will try to gather more collateral information, in the meantime we will keep on Latuda 160 mg daily that it was changed in the last admission. The patient is an adult male with a past history of schizophrenia who was readmitted for exacerbation of psychotic symptoms, recently discharged from this unit 10 days ago. The patient was assessed by crisis and transferring to this facility for psychiatric stabilization. According to the patient he was compliant with treatment. Plan 1. Gather collateral information. 2. 15 minute checks since the patient is able to contract for safety. 3. Continue Latuda 160 mg as per last admission. 4. Regular blood work and physical exam. 5. Reassessment with results. Keeping to self. laying in bed most of morning. guarded. Patient reports feeling alright ; denies SI/HI. He does report auditory hallucinations and visual hallucinations. pt stated, I see people that I know and they are just making noises . he reports sleeping well. encouraged to utilize PRN's in needed. denies any other issues at this time. Keeping to self. guarded. Patient reports feeling okay ; discussed discharging home on with follow up outpatient psychiatric appointment on Thursday. denies SI/HI. He continues to report auditory hallucinations of things I'm doing or thinking about . Encouraged to attend groups. continue current tx plan. Patient reports feeling alright ; discussed discharging home tomorrow with follow up outpatient psychiatric appointment on Thursday. Pt reports he plans on following up with his outpatient providers. He continues to report auditory hallucinations of commenting on what I'm doing . States he is sleeping well. denies SI/HI/VH. Patient reports feeling okay and plans on following up with his outpatient providers. denies SI/HI/VH. Continues to report auditory hallucinations that are commenting on what I'm doing . He plans on discussing this with his outpatient prescriber. Status at Discharge Cognitive/behavioral status at discharge: Patient has insight and demonstrates good judgment in terms of wanting to pursue treatment. Patient has a safety plan that includes presenting to the closest ER or calling 911 if feeling unsafe. Functional status at discharge: independent ambulation Overall status at discharge: patient is back to baseline Time Spent with Patient Time attestation: Total time managing care of this patient today _20___ minutes. Time spent: Less than 30 minutes Discharge Plan Discharge Anticipated Discharge Date/Time: 04/14/24 11:30 Patient Disposition: Home, Self-Care Discharge Diagnosis: Schizophrenia Referrals: Nia Judd (Therapy) [Other] - 04/26/24 9:00 am (IN OFFICE APPOINTMENT) Amanda Delgado (Psychiatry) [Other] - 04/15/24 11:00 am (IN OFFICE APPOINTMENT) Weekly Group [Other] - 04/14/24 2:00 pm (This is a weekly group that takes place each ) [facility] [Provider Group] - 1 Week (04-12-24 [facility] was added to patients chart. Please call [phone] to schedule your follow up appt.) Discharge Medications: Continued benztropine 1 mg tablet 0.5 mg PO BID metformin 500 mg tablet 500 mg PO DAILY trazodone 50 mg tablet 50 mg PO BEDTIME hydralazine 25 mg tablet 25 mg PO BID melatonin 3 mg tablet 6 mg PO BEDTIME PRN (Reason: insomnia) haloperidol 1 mg Tablet 2 mg PO BID PRN (Reason: Psychosis) Qty: 0 0RF cholecalciferol (vitamin D3) [Vitamin D3] 10 mcg (400 unit) Tablet 10 mcg PO DAILY Qty: 0 0RF lurasidone [Latuda] 80 mg Tablet 160 mg PO 1700 30 Days Qty: 60 0RF Discharge Orders: Discharge Order (Routine); Ordered 04/14/24 Ordered By: Mirta Chandler Diet: Regular diet Activity on Discharge: As tolerated Stand Alone Forms: Patient Portal Discharge page, Community Support Print Language: Malaysian Care Plan Goals: Maintain mood and safe behaviors Take medications as prescribed Practice coping skills Continue with outpatient providers and reach out to them as needed Health Concerns: Mood stability and behaviors Plan of Treatment: Follow up with your PCP, psychiatric provider and other outpatient providers regarding above concerns Take medications as prescribed Assessment: Patient has insight and demonstrates good judgment in terms of wanting to pursue treatment. Patient has a safety plan that includes presenting to the closest ER or calling 911 if feeling unsafe. Discharge Date/Time: 04/14/24 10:37
== END 2024-04-14 10:37 | disposition home or self-care (01) | DRG 750 ==
PROVIDERS: Psychiatry & Neurology Psychiatry; Admitting Provider Psychiatry & Neurology Psychiatry; Responsible Provider Registered Nurse; Visit Provider Psychiatry & Neurology Psychiatry
DX: F20.9 Schizophrenia, unspecified (principal); E11.9 Type 2 diabetes mellitus without complications; I10 Essential (primary) hypertension; E66.813 Obesity, class 3; Z68.41 Body mass index [BMI] 40.0-44.9, adult; Z71.3 Dietary counseling and surveillance; Z79.84 Long term (current) use of oral hypoglycemic drugs; Z79.899 Other long term (current) drug therapy
CPT/HCPCS: 36415; 80053; 80061

== ENCOUNTER → 2024-04-08 17:16 | Outpatient (BNV) | payer MEDICAID, SELFPAY | PROVIDERS: Admitting Provider Psychiatry & Neurology Psychiatry; Visit Provider Student in an Organized Health Care Education/Training Program | DX: I10 Essential (primary) hypertension (principal); E11.9 Type 2 diabetes mellitus without complications | CPT/HCPCS: 99222 ==

== ENCOUNTER → 2024-04-08 17:16 | Outpatient (BNV) | payer MEDICAID, SELFPAY | PROVIDERS: Admitting Provider Psychiatry & Neurology Psychiatry; Visit Provider Psychiatry & Neurology Psychiatry | DX: F20.9 Schizophrenia, unspecified (principal) | CPT/HCPCS: 90792; 99231; 99232; 99238 ==